=== PATIENT | male | born 1940 | race Caucasian/White ===

== ENCOUNTER 2017-04-23 22:51 | Emergency (ER) | payer MEDICARE, OTHER ==
[2017-04-23 23:02] VITALS: TEMP 97.4
[2017-04-23 23:36] LABS: Appearance,Urine Clear (Clear); Basophils # (A) 0.1 k/uL (0-0.2); Basophils % (A) 1 %; Bilirubin,Urine Negative (Negative); CH 30.5; CHCM 33.6; Eosinophils # (A) 0.4 k/uL (0-0.7); Eosinophils % (A) 4 %; Glucose,Urine (UA) 4+ (Negative); HCT 48.5 % (39.0-53.0); HDW 2.57; HGB 16.5 gm/dL (13.0-17.5); Ketones,Urine Negative (Negative); Leukocyte Esterase,Urine Negative (Negative); Luc # (Auto) 0.19; Luc % (Auto) 2; Lymphocytes # (A) 1.9 k/uL (1.0-4.8); Lymphocytes % (A) 17 %; MCH 31.1 pg (25.0-35.0); MCHC 34.1 g/dL (31.0-37.0); MCV 91.1 fL (80.0-100.0); Mean Platelet Volume 7.6; Monocytes # (A) 0.6 k/uL (0-1.0); Monocytes % (A) 5 %; Neutrophils # (A) 8.1 k/uL (1.3-7.7); Neutrophils % (A) 72 %; Nitrite,Urine Negative (Negative); PH, Urine 6.5 (5.0-8.0); Protein,Urine Negative (Negative); RBC 5.32 m/uL (4.30-5.90); RDW 13.2 % (11.5-15.5); Specific Gravity,Urine 1.014 (1.001-1.035); UA Billing (MACRO vs. MICRO) CHEM; Urobilinogen,Urine <2.0 mg/dL (<2.0); WBC 11.2 k/uL (3.8-10.6); WBC (Perox) 10.88
[2017-04-23 23:46] LABS: ALT 35 U/L (21-72); AST 34 U/L (17-59); Alcohol <10 mg/dL; Alkaline Phosphatase 85 U/L (38-126); Anion Gap 12 mmol/L; Blood Urea Nitrogen 25 mg/dL (9-20); Calcium 9.3 mg/dL (8.4-10.2); Carbon Dioxide 25 mmol/L (22-30); Chloride 100 mmol/L (98-107); Glucose 308 mg/dL (74-99); Non-African American GFR(MDRD) 59 (>60 ml/min/1.73 sqM); Potassium 4.6 mmol/L (3.5-5.1); Sodium 137 mmol/L (137-145); Total Bilirubin 0.5 mg/dL (0.2-1.3); Total Protein 6.2 g/dL (6.3-8.2)
[2017-04-23 23:50] LABS: Partial Thromboplastin Time 26.8 sec (22.0-30.0); Prothrombin Time 10.4 sec (9.0-12.0)
[2017-04-23 23:58] LABS: Creatine Kinase 433 U/L (55-170)
[2017-04-24 00:09] LABS: Troponin I <0.012 ng/mL (0.000-0.034)
[2017-04-24 00:10] LABS: Creatine Kinase MB 10.9 ng/mL (0.0-2.4)
--- NOTE | 2017-04-24 00:15 | CT ---
EXAM: CT Head Without Intravenous Contrast CLINICAL HISTORY: Reason: trauma TECHNIQUE: Axial computed tomography images of the head/brain without intravenous contrast. CTDI is 57.40 mGy and DLP is 1116.00 mGy-cm. This CT exam was performed using one or more of the following dose reduction techniques: automated exposure control, adjustment of the mA and/or kV according to patient size, and/or use of iterative reconstruction technique. COMPARISON: No relevant prior studies available. FINDINGS: Brain: Unremarkable. No hemorrhage. No significant white matter disease. No edema. Generalized atrophy noted. Ventricles: Unremarkable. No ventriculomegaly. Bones/joints: Unremarkable. No acute fracture. Soft tissues: Unremarkable. Sinuses: Unremarkable as visualized. No acute sinusitis. Mastoid air cells: Unremarkable as visualized. No mastoid effusion. IMPRESSION: No acute intracranial process. Generalized atrophy noted. EXAM: CT Cervical Spine Without Intravenous Contrast CLINICAL HISTORY: Reason: trauma TECHNIQUE: Axial computed tomography images of the cervical spine without intravenous contrast. CTDI is 29.10 mGy and DLP is 557.70 mGy-cm. This CT exam was performed using one or more of the following dose reduction techniques: automated exposure control, adjustment of the mA and/or kV according to patient size, and/or use of iterative reconstruction technique. COMPARISON: No relevant prior studies available. FINDINGS: Vertebrae: Unremarkable. No acute fracture. Discs/spinal canal/neural foramina: No acute findings. No spinal canal stenosis. Posterior disc protrusion at C5-6 causing bilateral neural foraminal narrowing. Right uncovertebral joint spurring seen at C4-5 causing right neural foraminal narrowing. Soft tissues: Unremarkable. Lung apices: Unremarkable as visualized. IMPRESSION: Normal cervical spine CT.
--- NOTE | 2017-04-24 00:52 | XR ---
EXAM: XR Chest, 1 View CLINICAL HISTORY: Reason: trauma TECHNIQUE: Frontal view of the chest. COMPARISON: 07/20/16 FINDINGS: Lungs: Unremarkable. No consolidation. Pleural space: Unremarkable. No pneumothorax. Heart: Stable mild cardiomegaly. Mediastinum: Unremarkable. Bones/joints: Unremarkable. IMPRESSION: No acute findings.
--- NOTE | 2017-04-24 00:55 | XR ---
EXAM: XR Pelvis, 1 or 2 Views CLINICAL HISTORY: Reason: Trauma TECHNIQUE: Frontal view of the pelvis. COMPARISON: No relevant prior studies available. FINDINGS: Bones/joints: Limited due to body habitus. Pelvic ring is grossly intact. No gross evidence of fracture. No dislocation. Soft tissues: Unremarkable. IMPRESSION: Limited due to body habitus. Pelvic ring is grossly intact. No gross evidence of fracture.
[2017-04-24] MEDS ORDERED: KETOROLAC 30 MG/ML 1 ML VIAL IVP STA (01:06)
[2017-04-24 02:10] LABS: Glucose,Whole Blood 350 mg/dL (75-99)
[2017-04-24] MEDS ORDERED: INSULIN GLARGINE 100 UNIT/ML 10 ML VIAL SQ ONE (02:15)
--- NOTE | 2017-04-24 02:20 | XR ---
EXAM: XR Left Shoulder Complete, 2 or More Views CLINICAL HISTORY: Reason: trauma TECHNIQUE: Two or more views of the left shoulder. COMPARISON: No relevant prior studies available. FINDINGS: Bones/joints: Mild acromioclavicular joint space loss. No acute fracture. No dislocation. Soft tissues: Unremarkable. IMPRESSION: No acute findings.
--- NOTE | 2017-04-24 02:41 | ED ---
General Adult HPI - General Chief complaint: Fall Stated complaint: Fall Time Seen by Provider: 04/23/17 22:54 Source: patient, family, EMS, RN notes reviewed Mode of arrival: EMS Limitations: no limitations - History of Present Illness Initial comments: 76-year-old male presents status post fall. Patient has Parkinson's disease and tripped type of stairs. He did fall down approximately 12 stairs. Complaining of left shoulder pain and left neck pain. There was minor head trauma but no loss of consciousness per patient is not on any blood thinners. He denies chest pain or shortness of breath. Denies abdominal pain. Patient was ambulatory on scene. He was brought him by EMS as a level II trauma activation. - Related Data Home Medications Medication Instructions Recorded Confirmed ALPRAZolam [Xanax] 0.25 mg PO BID PRN 01/10/14 07/21/16 Aspirin 81 mg PO DAILY 01/10/14 07/21/16 Folic Acid 1 mg PO DAILY 01/10/14 07/21/16 Furosemide [Lasix] 20 mg PO DAILY PRN 01/10/14 07/21/16 Insulin Glargine,Hum.rec.anlog 60 unit SQ BID 01/10/14 07/21/16 [Lantus Solostar] Levothyroxine Sodium [Synthroid] 100 mcg PO DAILY 01/10/14 07/21/16 Lisinopril [Zestril] 10 mg PO DAILY 01/10/14 07/21/16 Metoprolol Succinate [Toprol XL] 25 mg PO HS 01/10/14 07/21/16 Spironolactone [Aldactone] 12.5 mg PO DAILY 01/10/14 07/21/16 metFORMIN HCL 1,000 mg PO BID 01/10/14 07/21/16 Carbidopa-Levodopa 25-100 mg 1 tab PO BID-W/MEALS 07/20/16 07/21/16 [Sinemet 25-100 mg] Fexofenadine HCl [Dori Allergy] 180 mg PO DAILY PRN 07/20/16 07/21/16 Insulin Lispro [humaLOG Kwikpen] See Protocol SQ AC-TID 07/20/16 07/21/16 Venlafaxine HCl [Effexor XR] 150 mg PO DAILY 07/20/16 07/21/16 Vit C/E/Zn/Coppr/Lutein/Zeaxan 1 cap PO BID 07/20/16 07/21/16 [Preservision Areds 2 Softgel] Previous Rx's Medication Instructions Recorded Atorvastatin Calcium [Lipitor] 10 mg PO HS #30 tab 07/21/16 Cyanocobalamin [Vitamin B-12] 500 mcg PO DAILY #30 tablet 07/21/16 Docusate [Colace] 100 mg PO DAILY #30 capsule 07/21/16 HYDROcodone/APAP 5-325MG [Lyman 1 tab PO Q6HR PRN #12 tab 04/24/17 5-325] Ibuprofen [Motrin] 600 mg PO Q8HR PRN #24 tab 04/24/17 Allergies Allergy/AdvReac Type Severity Reaction Status Date / Time No Known Allergies Allergy Verified 07/20/16 19:07 Review of Systems ROS Statement: Those systems with pertinent positive or pertinent negative responses have been documented in the HPI. ROS Other: All systems not noted in ROS Statement are negative. Past Medical History Past Medical History: Diabetes Mellitus, GERD/Reflux, Hypertension, Neurologic Disorder, Osteoarthritis (OA), Sleep Apnea/CPAP/BIPAP, Thyroid Disorder Additional Past Medical History / Comment(s): PROLAPSED HEART VALVE, HEMOCHROMATOSIS, OCC. SWELLING IN FEET, FREQUENT CONSTIPATION, Parkinsons disease History of Any Multi-Drug Resistant Organisms: None Reported Past Surgical History: Orthopedic Surgery Additional Past Surgical History / Comment(s): RIGHT ROTATOR CUFF, LEFT SHOULDER ARTHROSCOPY Past Anesthesia/Blood Transfusion Reactions: No Reported Reaction Past Psychological History: Anxiety, Depression Smoking Status: Never smoker Past Alcohol Use History: Rare Past Drug Use History: None Reported - Past Family History Mother Family Medical History: Diabetes Mellitus Brother(s) Family Medical History: Blood Disorder Additional Family Medical History / Comment(s): hemachromatosis General Exam Limitations: no limitations General appearance: alert, in no apparent distress Head exam: Present: atraumatic, normocephalic Eye exam: Present: normal appearance, PERRL ENT exam: Present: normal exam, normal oropharynx, mucous membranes moist Neck exam: Present: normal inspection, tenderness, other (Left paraspinal and trapezius tenderness to palpation midline tenderness) Respiratory exam: Present: normal lung sounds bilaterally, respiratory distress Cardiovascular Exam: Present: regular rate, normal rhythm GI/Abdominal exam: Present: soft. Absent: distended, tenderness, guarding, rebound Extremities exam: Present: full ROM, tenderness (Tenderness over the left scapula, mild abrasion to the left shoulder, abrasion to the right knee, distal pulses intact), normal capillary refill, pedal edema Back exam: Present: normal inspection, full ROM. Absent: tenderness Neurological exam: Present: alert, oriented X3, CN II-XII intact. Absent: motor sensory deficit Psychiatric exam: Present: normal affect, normal mood Skin exam: Present: warm, dry Course Vital Signs 04/23/17 04/23/17 04/24/17 22:55 23:23 00:49 Temperature 97.4 F L Pulse Rate 69 70 78 Respiratory 17 17 16 Rate Blood Pressure 141/68 146/69 168/78 O2 Sat by Pulse 100 97 98 Oximetry - Reevaluation(s) Reevaluation #1: 04/24/17 02:53 Patient is reevaluated after x-rays are obtained. He is able to work. No additional exam findings noted. Patient is comfortable with discharge. EKG Findings - EKG Comments: EKG Findings:: EKG shows normal sinus rhythm, ventricular 81, NH interval 178, QRS duration 110, QTC 466, no ST segment elevation. Medical Decision Making - Medical Decision Making 76-year-old male presents status post fall. He does have Parkinson's disease and tripped top of the stairs. No chest pain palpitations or near-syncope prior fall. Patient did a minor head trauma no loss of consciousness. Only complaint is left shoulder pain and left paraspinal neck pain. No midline tenderness. Patient is maintained in a c-collar. Head CT is negative for intracranial hemorrhage, CT cervical spine is negative for fracture subluxation. Chest x-ray and pelvis x-ray are obtained and both are negative for any acute process. X-ray of the left shoulder shows no acute bony abnormality. Patient was evaluated as a level II trauma activation. Case was discussed with general surgery on-call. Laboratory studies obtained are unremarkable given the doesn't patient. On reevaluation patient's exam is unchanged. Continues to have left shoulder pain and left paraspinal pain in the cervical region. Her logic examination is nonfocal. Patient is able to move his neck without neurological symptoms. There is no midline tenderness. Patient is able to emergency department. Tetanus is up-to-date. Patient will be discharged home. He lives with his . His daughter will be available for assistance. Is given pain medication and follow-up with his primary care physician within the next several days. - Lab Data Result diagrams: 04/23/17 23:25 04/23/17 23:25 Lab Results 04/23/17 04/23/17 04/23/17 Range/Units 23:25 23:25 23:25 WBC (3.8-10.6) k/uL RBC (4.30-5.90) m/uL Hgb (13.0-17.5) gm/dL Hct (39.0-53.0) % MCV (80.0-100.0) fL MCH (25.0-35.0) pg MCHC (31.0-37.0) g/dL RDW (11.5-15.5) % Plt Count (150-450) k/uL Neutrophils % % Lymphocytes % % Monocytes % % Eosinophils % % Basophils % % Neutrophils # (1.3-7.7) k/uL Lymphocytes # (1.0-4.8) k/uL Monocytes # (0-1.0) k/uL Eosinophils # (0-0.7) k/uL Basophils # (0-0.2) k/uL PT (9.0-12.0) sec INR (<1.2) APTT (22.0-30.0) sec Sodium 137 (137-145) mmol/L Potassium 4.6 (3.5-5.1) mmol/L Chloride 100 (98-107) mmol/L Carbon Dioxide 25 (22-30) mmol/L Anion Gap 12 mmol/L BUN 25 H (9-20) mg/dL Creatinine 1.20 (0.66-1.25) mg/dL Est GFR (MDRD) Af Amer >60 (>60 ml/min/1.73 sqM) Est GFR (MDRD) Non-Af 59 (>60 ml/min/1.73 sqM) Glucose 308 H (74-99) mg/dL POC Glucose (mg/dL) (75-99) mg/dL POC Glu Surgical Services Assistant ID Calcium 9.3 (8.4-10.2) mg/dL Total Bilirubin 0.5 (0.2-1.3) mg/dL AST 34 (17-59) U/L ALT 35 (21-72) U/L Alkaline Phosphatase 85 (38-126) U/L Total Creatine Kinase 433 H (55-170) U/L CK-MB (CK-2) 10.9 H* (0.0-2.4) ng/mL CK-MB (CK-2) Rel Index 2.5 Troponin I <0.012 (0.000-0.034) ng/mL Total Protein 6.2 L (6.3-8.2) g/dL Albumin 3.7 (3.5-5.0) g/dL Urine Color Urine Appearance (Clear) Urine pH (5.0-8.0) Ur Specific [place] (1.001-1.035) Urine Protein (Negative) Urine Glucose (UA) (Negative) Urine Ketones (Negative) Urine Blood (Negative) Urine Nitrite (Negative) Urine Bilirubin (Negative) Urine Urobilinogen (<2.0) mg/dL Ur Leukocyte Esterase (Negative) Urine Opiates Screen (NotDetected) Ur Oxycodone Screen (NotDetected) Urine Methadone Screen (NotDetected) Ur Propoxyphene Screen (NotDetected) Ur Barbiturates Screen (NotDetected) U Tricyclic Antidepress (NotDetected) Ur Phencyclidine Scrn (NotDetected) Ur Amphetamines Screen (NotDetected) U Methamphetamines Scrn (NotDetected) U Benzodiazepines Scrn (NotDetected) Urine Cocaine Screen (NotDetected) U Marijuana (THC) Screen (NotDetected) Serum Alcohol <10 mg/dL Blood Type A Positive Blood Type Recheck CABO Indicated Antibody Screen NEGATIVE Spec Expiration Date 04/26/2017232404/23/17 04/23/17 04/23/17 Range/Units 23:25 23:25 23:25 WBC 11.2 H (3.8-10.6) k/uL RBC 5.32 (4.30-5.90) m/uL Hgb 16.5 (13.0-17.5) gm/dL Hct 48.5 (39.0-53.0) % MCV 91.1 (80.0-100.0) fL MCH 31.1 (25.0-35.0) pg MCHC 34.1 (31.0-37.0) g/dL RDW 13.2 (11.5-15.5) % Plt Count 202 (150-450) k/uL Neutrophils % 72 % Lymphocytes % 17 % Monocytes % 5 % Eosinophils % 4 % Basophils % 1 % Neutrophils # 8.1 H (1.3-7.7) k/uL Lymphocytes # 1.9 (1.0-4.8) k/uL Monocytes # 0.6 (0-1.0) k/uL Eosinophils # 0.4 (0-0.7) k/uL Basophils # 0.1 (0-0.2) k/uL PT 10.4 (9.0-12.0) sec INR 1.0 (<1.2) APTT 26.8 (22.0-30.0) sec Sodium (137-145) mmol/L Potassium (3.5-5.1) mmol/L Chloride (98-107) mmol/L Carbon Dioxide (22-30) mmol/L Anion Gap mmol/L BUN (9-20) mg/dL Creatinine (0.66-1.25) mg/dL Est GFR (MDRD) Af Amer (>60 ml/min/1.73 sqM) Est GFR (MDRD) Non-Af (>60 ml/min/1.73 sqM) Glucose (74-99) mg/dL POC Glucose (mg/dL) (75-99) mg/dL POC Glu Surgical Services Assistant ID Calcium (8.4-10.2) mg/dL Total Bilirubin (0.2-1.3) mg/dL AST (17-59) U/L ALT (21-72) U/L Alkaline Phosphatase (38-126) U/L Total Creatine Kinase (55-170) U/L CK-MB (CK-2) (0.0-2.4) ng/mL CK-MB (CK-2) Rel Index Troponin I (0.000-0.034) ng/mL Total Protein (6.3-8.2) g/dL Albumin (3.5-5.0) g/dL Urine Color Light Yellow Urine Appearance Clear (Clear) Urine pH 6.5 (5.0-8.0) Ur Specific [place] 1.014 (1.001-1.035) Urine Protein Negative (Negative) Urine Glucose (UA) 4+ H (Negative) Urine Ketones Negative (Negative) Urine Blood Negative (Negative) Urine Nitrite Negative (Negative) Urine Bilirubin Negative (Negative) Urine Urobilinogen <2.0 (<2.0) mg/dL Ur Leukocyte Esterase Negative (Negative) Urine Opiates Screen Not Detected (NotDetected) Ur Oxycodone Screen Not Detected (NotDetected) Urine Methadone Screen Not Detected (NotDetected) Ur Propoxyphene Screen Not Detected (NotDetected) Ur Barbiturates Screen Not Detected (NotDetected) U Tricyclic Antidepress Not Detected (NotDetected) Ur Phencyclidine Scrn Not Detected (NotDetected) Ur Amphetamines Screen Not Detected (NotDetected) U Methamphetamines Scrn Not Detected (NotDetected) U Benzodiazepines Scrn Not Detected (NotDetected) Urine Cocaine Screen Not Detected (NotDetected) U Marijuana (THC) Screen Not Detected (NotDetected) Serum Alcohol mg/dL Blood Type Blood Type Recheck Antibody Screen Spec Expiration Date 04/24/17 Range/Units 02:06 WBC (3.8-10.6) k/uL RBC (4.30-5.90) m/uL Hgb (13.0-17.5) gm/dL Hct (39.0-53.0) % MCV (80.0-100.0) fL MCH (25.0-35.0) pg MCHC (31.0-37.0) g/dL RDW (11.5-15.5) % Plt Count (150-450) k/uL Neutrophils % % Lymphocytes % % Monocytes % % Eosinophils % % Basophils % % Neutrophils # (1.3-7.7) k/uL Lymphocytes # (1.0-4.8) k/uL Monocytes # (0-1.0) k/uL Eosinophils # (0-0.7) k/uL Basophils # (0-0.2) k/uL PT (9.0-12.0) sec INR (<1.2) APTT (22.0-30.0) sec Sodium (137-145) mmol/L Potassium (3.5-5.1) mmol/L Chloride (98-107) mmol/L Carbon Dioxide (22-30) mmol/L Anion Gap mmol/L BUN (9-20) mg/dL Creatinine (0.66-1.25) mg/dL Est GFR (MDRD) Af Amer (>60 ml/min/1.73 sqM) Est GFR (MDRD) Non-Af (>60 ml/min/1.73 sqM) Glucose (74-99) mg/dL POC Glucose (mg/dL) 350 H (75-99) mg/dL POC Glu Surgical Services Assistant ID Denzel Lora Calcium (8.4-10.2) mg/dL Total Bilirubin (0.2-1.3) mg/dL AST (17-59) U/L ALT (21-72) U/L Alkaline Phosphatase (38-126) U/L Total Creatine Kinase (55-170) U/L CK-MB (CK-2) (0.0-2.4) ng/mL CK-MB (CK-2) Rel Index Troponin I (0.000-0.034) ng/mL Total Protein (6.3-8.2) g/dL Albumin (3.5-5.0) g/dL Urine Color Urine Appearance (Clear) Urine pH (5.0-8.0) Ur Specific [place] (1.001-1.035) Urine Protein (Negative) Urine Glucose (UA) (Negative) Urine Ketones (Negative) Urine Blood (Negative) Urine Nitrite (Negative) Urine Bilirubin (Negative) Urine Urobilinogen (<2.0) mg/dL Ur Leukocyte Esterase (Negative) Urine Opiates Screen (NotDetected) Ur Oxycodone Screen (NotDetected) Urine Methadone Screen (NotDetected) Ur Propoxyphene Screen (NotDetected) Ur Barbiturates Screen (NotDetected) U Tricyclic Antidepress (NotDetected) Ur Phencyclidine Scrn (NotDetected) Ur Amphetamines Screen (NotDetected) U Methamphetamines Scrn (NotDetected) U Benzodiazepines Scrn (NotDetected) Urine Cocaine Screen (NotDetected) U Marijuana (THC) Screen (NotDetected) Serum Alcohol mg/dL Blood Type Blood Type Recheck Antibody Screen Spec Expiration Date Disposition Clinical Impression: Shoulder contusion, Closed head injury, Neck sprain, Fall Disposition: HOME SELF-CARE Condition: Good Instructions: Fall Prevention for Older Adults (ED), Contusion in Adults (ED), Cervical Sprain (ED) Prescriptions: HYDROcodone/APAP 5-325MG [Lyman 5-325] 1 tab PO Q6HR PRN #12 tab PRN Reason: Pain Ibuprofen [Motrin] 600 mg PO Q8HR PRN #24 tab PRN Reason: Pain Referrals: Elizabeth Cruz MD [Primary Care Provider] - 1-2 days Time of Disposition: 02:40
[2017-04-24] MEDS ORDERED: HYDROcodone/APAP 5-325MG 1 EACH TAB PO STA (02:42)
[2017-04-24 03:04] VITALS: BP 122/63; PULSE 77; RESP 18
[2017-04-24] MEDS ORDERED: INSULIN GLARGINE 100 UNIT/ML 10 ML VIAL SQ SCH (21:00)
== END 2017-04-24 03:04 | disposition home or self-care (01) ==
LOC: EC 22:51
DX: S13.8XXA Sprain of joints and ligaments of other parts of neck, initial encounter (principal); S40.012A Contusion of left shoulder, initial encounter; S80.211A Abrasion, right knee, initial encounter; S09.90XA Unspecified injury of head, initial encounter; E11.9 Type 2 diabetes mellitus without complications; I10 Essential (primary) hypertension; E07.9 Disorder of thyroid, unspecified; G20 Parkinson's disease; F41.9 Anxiety disorder, unspecified; F32.9 Major depressive disorder, single episode, unspecified; Z79.4 Long term (current) use of insulin; Z79.82 Long term (current) use of aspirin; Z79.84 Long term (current) use of oral hypoglycemic drugs; Z79.899 Other long term (current) drug therapy; W10.9XXA Fall (on) (from) unspecified stairs and steps, initial encounter; Y92.009 Unspecified place in unspecified non-institutional (private) residence as the place of occurrence of the external cause
CPT/HCPCS: 99285; 96374; 36415 ×2; 93005; 86900; 86901; 80053; 82550; 82553; 84484; 85025; 85610; 85730; 86850; 81003; 80306; 80320; 71010; 72170; 73030; 72125; 70450; J1885

== ENCOUNTER 2018-03-08 21:03 | Inpatient (IN) | payer MEDICARE, OTHER ==
[2018-03-08] MEDS ORDERED: SODIUM CHLORIDE 0.9% 500 ML IV STA (21:12)
[2018-03-08] MEDS ORDERED: PANTOPRAZOLE 40 MG/10 ML VIAL IVP STA (21:12)
[2018-03-08 21:21] LABS: Glucose,Whole Blood 304 mg/dL (75-99)
[2018-03-08 21:37] LABS: Basophils # (A) 0.1 k/uL (0-0.2); Basophils % (A) 1 %; Eosinophils # (A) 0.3 k/uL (0-0.7); Eosinophils % (A) 2 %; HCT 40.6 % (39.0-53.0); HGB 13.4 gm/dL (13.0-17.5); Lymphocytes # (A) 1.9 k/uL (1.0-4.8); Lymphocytes % (A) 17 %; MCH 29.3 pg (25.0-35.0); MCHC 33.1 g/dL (31.0-37.0); MCV 88.5 fL (80.0-100.0); Mean Platelet Volume 7.5; Monocytes # (A) 0.7 k/uL (0-1.0); Monocytes % (A) 6 %; Neutrophils # (A) 8.3 k/uL (1.3-7.7); Neutrophils % (A) 73 %; Platelet Count 191 k/uL (150-450); RBC 4.58 m/uL (4.30-5.90); RDW 13.7 % (11.5-15.5); WBC 11.3 k/uL (3.8-10.6)
[2018-03-08 21:47] LABS: INR 1.2 (<1.2); Partial Thromboplastin Time 25.4 sec (22.0-30.0); Prothrombin Time 11.1 sec (9.0-12.0)
[2018-03-08 21:49] LABS: Albumin 3.2 g/dL (3.5-5.0); Calcium 8.6 mg/dL (8.4-10.2); Potassium 5.4 mmol/L (3.5-5.1); Total Bilirubin 0.4 mg/dL (0.2-1.3); Total Protein 5.4 g/dL (6.3-8.2)
[2018-03-08 22:07] LABS: Creatine Kinase 31 U/L (55-170)
[2018-03-08 22:21] LABS: Creatine Kinase MB 0.8 ng/mL (0.0-2.4); Troponin I <0.012 ng/mL (0.000-0.034)
[2018-03-08 22:36] LABS: Appearance,Urine Clear (Clear); Bilirubin,Urine Negative (Negative); Blood,Urine Negative (Negative); Color,Urine Yellow; Glucose,Urine (UA) 4+ (Negative); Ketones,Urine Negative (Negative); Leukocyte Esterase,Urine Negative (Negative); Nitrite,Urine Negative (Negative); Protein,Urine Negative (Negative); Specific Gravity,Urine 1.016 (1.001-1.035); Urobilinogen,Urine <2.0 mg/dL (<2.0)
--- NOTE | 2018-03-08 23:21 | ED ---
General Adult HPI - General Chief complaint: Weakness Stated complaint: GI Bleed Source: patient Mode of arrival: EMS Limitations: no limitations - History of Present Illness Initial comments: Dictation was produced using [employer] dictation software. please excuse any grammatical, word or spelling errors. Chief Complaint: 77-year-old male past medical history of diabetes, hypertension, sleep apnea, thyroid disease, peptic ulcer disease presents with melanotic stool 3 days. History of Present Illness: Donaldo has been having melanotic stool for the past 3 days. Patient has a past medical history peptic ulcer disease to the duodenum that required GI intervention. Patient denies any lightheadedness. Patient is brought in by EMS. Initial EMS vital signs showed hypertension with systolic in the 80s. Patient denies any abdominal pain. Patient states that he has been having some epigastric pain has been improved with ingestion of coffee creamer. Patient has a fever, chills or night sweats. Past Medical History: Otherwise, GERD, hypertension, neurologic disorder, sleep apnea Past Surgical History: Orthopedic surgery of the right rotator cuff Social History: [denies alcohol, tobacco or illicit drug use] Family History: reviewed and noncontributory The ROS documented in this emergency department record has been reviewed and confirmed by me. Those systems with pertinent positive or negative responses have been documented in the HPI. All other systems are other negative and/or noncontributory. - Related Data Home Medications Medication Instructions Recorded Confirmed ALPRAZolam [Xanax] 0.25 mg PO BID PRN 01/10/14 03/08/18 Aspirin 81 mg PO DAILY 01/10/14 03/08/18 Folic Acid 1 mg PO DAILY 01/10/14 03/08/18 Levothyroxine Sodium [Synthroid] 100 mcg PO DAILY 01/10/14 03/08/18 Lisinopril [Zestril] 10 mg PO DAILY 01/10/14 03/08/18 Metoprolol Succinate [Toprol XL] 25 mg PO DAILY 01/10/14 03/08/18 Carbidopa-Levodopa 25-100 mg 1 tab PO AC-TID 07/20/16 03/08/18 [Sinemet 25-100 mg] Fexofenadine HCl [Dori Allergy] 180 mg PO DAILY PRN 07/20/16 03/08/18 Insulin Lispro [humaLOG Kwikpen] 15 unit SQ AC-TID 07/20/16 03/08/18 Venlafaxine HCl [Effexor XR] 150 mg PO DAILY 07/20/16 03/08/18 Vit C/E/Zn/Coppr/Lutein/Zeaxan 1 cap PO BID 07/20/16 03/08/18 [Preservision Areds 2 Softgel] Artificial Tears-Hypromellose 1 - 2 drops BOTH EYES QID 03/08/18 03/08/18 [Artificial Tear Drops] Atorvastatin Calcium [Lipitor] 10 mg PO DAILY 03/08/18 03/08/18 Insulin Degludec [Tresiba 32 unit SQ HS 03/08/18 03/08/18 Flextouch U-100] Magnesium Oxide 400 mg PO DAILY 03/08/18 03/08/18 Previous Rx's Medication Instructions Recorded Cyanocobalamin [Vitamin B-12] 500 mcg PO DAILY #30 tablet 07/21/16 Diclofenac Sodium Gel [Voltaren 2 gm TOPICAL QID #1 tube 03/12/18 Gel] Fludrocortisone [Florinef] 0.05 mg PO DAILY #30 tablet 03/12/18 Lidocaine 5% Patch [Lidoderm 5% 1 patch TOPICAL DAILY #5 patch 03/12/18 Patch] Pantoprazole [Protonix] 40 mg PO AC-BID #60 tablet. 03/12/18 traMADol HCl [Ultram] 50 mg PO Q4H #18 tab 03/12/18 Allergies Allergy/AdvReac Type Severity Reaction Status Date / Time No Known Allergies Allergy Verified 03/08/18 21:23 Review of Systems ROS Statement: Those systems with pertinent positive or pertinent negative responses have been documented in the HPI. ROS Other: All systems not noted in ROS Statement are negative. Past Medical History Past Medical History: Diabetes Mellitus, GERD/Reflux, Hypertension, Neurologic Disorder, Osteoarthritis (OA), Sleep Apnea/CPAP/BIPAP, Thyroid Disorder Additional Past Medical History / Comment(s): PROLAPSED HEART VALVE, HEMOCHROMATOSIS, OCC. SWELLING IN FEET, FREQUENT CONSTIPATION, Parkinsons disease History of Any Multi-Drug Resistant Organisms: None Reported Past Surgical History: Orthopedic Surgery Additional Past Surgical History / Comment(s): RIGHT ROTATOR CUFF, LEFT SHOULDER ARTHROSCOPY Past Anesthesia/Blood Transfusion Reactions: No Reported Reaction Past Psychological History: Anxiety, Depression Smoking Status: Never smoker Past Alcohol Use History: Rare Past Drug Use History: None Reported - Past Family History Mother Family Medical History: Diabetes Mellitus Brother(s) Family Medical History: Blood Disorder Additional Family Medical History / Comment(s): hemachromatosis General Exam - General Exam Comments Initial Comments: Vitals: Vital signs upon arrival are within acceptable limits. PHYSICAL EXAM: General Impression: Alert and oriented x3, not in acute distress HEENT: Normocephalic atraumatic, extra-ocular movements intact, pupils equal and reactive to light bilaterally, mucous membranes moist. Cardiovascular: Heart regular rate and rhythm, S1&S2 audible, no murmurs, rubs or gallops Chest: Lungs clear to auscultation bilaterally, no rhonchi, no wheeze, no rales Abdomen: Bowel sounds present, abdomen soft, non-tender, non-distended, no organomegaly Musculoskeletal: Pulses present and equal in all extremities, no peripheral edema Motor: Power 5/5 bilaterally, no focal deficits noted Neurological: CN II-XII grossly intact, no focal motor or sensory deficits noted Skin: Intact with no visualized rashes Psych: Normal affect and mood Rectal exam: No external signs to identify source of bleeding. There is coffee- ground residue around the anus. No palpable masses with digital rectal exam. Limitations: no limitations Course Vital Signs 03/08/18 03/08/18 03/08/18 21:09 22:12 23:30 Temperature 97.8 F Pulse Rate 75 64 68 Respiratory 16 19 18 Rate Blood Pressure 130/61 115/57 115/57 O2 Sat by Pulse 100 100 97 Oximetry 03/09/18 00:00 Temperature Pulse Rate 66 Respiratory 19 Rate Blood Pressure 127/63 O2 Sat by Pulse 99 Oximetry Medical Decision Making - Medical Decision Making ED course: 77-year-old male with past medical history of peptic ulcer disease percents with coffee-ground stool. Is on arrival are within normal limits. There is history of hypotension that was seen by prehospital providers. Stool guaiac was positive for blood. Laboratory evaluation obtained. Mild leukocytosis of 11.3. Hemoglobin is 13.4. Most recent hemoglobin was approximately 1 year ago with the level of 16. INR is 1.2. Glucose is 307. Urinalysis is negative. There is suspicion of upper GI bleed causing melanotic stool. Patient given 40 mg of IV Protonix. Given comorbidities age and hemoglobin drop and prehospital hypotension will have the patient admitted for every 6 hours H&H, Protonix and GI consult. Patient is understandable and agreeable to plan. EKG Interpretation: A 12 lead EKG was obtained. It was interpreted by myself and attending physician. There is a P wave before every QRS complex. Rate is 68. Rhythm is and a sinus rhythm, NJ interval 154, Q tenriism 94, QTC 418. QT is not prolonged. No ST segment depression or elevation. Overall, this EKG is unremarkable - Lab Data Result diagrams: 03/12/18 08:09 03/12/18 08:09 Lab Results 03/08/18 03/08/18 03/08/18 Range/Units 21:06 21:28 21:28 WBC (3.8-10.6) k/uL RBC (4.30-5.90) m/uL Hgb (13.0-17.5) gm/dL Hct (39.0-53.0) % MCV (80.0-100.0) fL MCH (25.0-35.0) pg MCHC (31.0-37.0) g/dL RDW (11.5-15.5) % Plt Count (150-450) k/uL Neutrophils % % Lymphocytes % % Monocytes % % Eosinophils % % Basophils % % Neutrophils # (1.3-7.7) k/uL Lymphocytes # (1.0-4.8) k/uL Monocytes # (0-1.0) k/uL Eosinophils # (0-0.7) k/uL Basophils # (0-0.2) k/uL PT 11.1 (9.0-12.0) sec INR 1.2 H (<1.2) APTT 25.4 (22.0-30.0) sec Sodium (137-145) mmol/L Potassium (3.5-5.1) mmol/L Chloride (98-107) mmol/L Carbon Dioxide (22-30) mmol/L Anion Gap mmol/L BUN (9-20) mg/dL Creatinine (0.66-1.25) mg/dL Est GFR (CKD-EPI)AfAm (>60 ml/min/1.73 sqM) Est GFR (CKD-EPI)NonAf (>60 ml/min/1.73 sqM) Glucose (74-99) mg/dL POC Glucose (mg/dL) 304 H (75-99) mg/dL POC Glu Rubber Compounder Mixer ID Bibi Leija Estimated Ave Glu mg/dL Hemoglobin A1c (4.0-6.0) % Calcium (8.4-10.2) mg/dL Total Bilirubin (0.2-1.3) mg/dL AST (17-59) U/L ALT (21-72) U/L Alkaline Phosphatase (38-126) U/L Ammonia (<30) umol/L Total Creatine Kinase (55-170) U/L CK-MB (CK-2) (0.0-2.4) ng/mL CK-MB (CK-2) Rel Index Troponin I (0.000-0.034) ng/mL Total Protein (6.3-8.2) g/dL Albumin (3.5-5.0) g/dL Lipase (23-300) U/L Urine Color Urine Appearance (Clear) Urine pH (5.0-8.0) Ur Specific [place] (1.001-1.035) Urine Protein (Negative) Urine Glucose (UA) (Negative) Urine Ketones (Negative) Urine Blood (Negative) Urine Nitrite (Negative) Urine Bilirubin (Negative) Urine Urobilinogen (<2.0) mg/dL Ur Leukocyte Esterase (Negative) Blood Type A Positive Blood Type Recheck No Antibody Screen NEGATIVE Spec Expiration Date 03/11/2018 - 232703/08/18 03/08/18 03/08/18 Range/Units 21:28 21:28 21:28 WBC 11.3 H (3.8-10.6) k/uL RBC 4.58 (4.30-5.90) m/uL Hgb 13.4 (13.0-17.5) gm/dL Hct 40.6 (39.0-53.0) % MCV 88.5 (80.0-100.0) fL MCH 29.3 (25.0-35.0) pg MCHC 33.1 (31.0-37.0) g/dL RDW 13.7 (11.5-15.5) % Plt Count 191 (150-450) k/uL Neutrophils % 73 % Lymphocytes % 17 % Monocytes % 6 % Eosinophils % 2 % Basophils % 1 % Neutrophils # 8.3 H (1.3-7.7) k/uL Lymphocytes # 1.9 (1.0-4.8) k/uL Monocytes # 0.7 (0-1.0) k/uL Eosinophils # 0.3 (0-0.7) k/uL Basophils # 0.1 (0-0.2) k/uL PT (9.0-12.0) sec INR (<1.2) APTT (22.0-30.0) sec Sodium (137-145) mmol/L Potassium (3.5-5.1) mmol/L Chloride (98-107) mmol/L Carbon Dioxide (22-30) mmol/L Anion Gap mmol/L BUN (9-20) mg/dL Creatinine (0.66-1.25) mg/dL Est GFR (CKD-EPI)AfAm (>60 ml/min/1.73 sqM) Est GFR (CKD-EPI)NonAf (>60 ml/min/1.73 sqM) Glucose (74-99) mg/dL POC Glucose (mg/dL) (75-99) mg/dL POC Glu Rubber Compounder Mixer ID Estimated Ave Glu mg/dL Hemoglobin A1c (4.0-6.0) % Calcium (8.4-10.2) mg/dL Total Bilirubin (0.2-1.3) mg/dL AST (17-59) U/L ALT (21-72) U/L Alkaline Phosphatase (38-126) U/L Ammonia 15 (<30) umol/L Total Creatine Kinase 31 L (55-170) U/L CK-MB (CK-2) 0.8 (0.0-2.4) ng/mL CK-MB (CK-2) Rel Index 2.6 Troponin I <0.012 (0.000-0.034) ng/mL Total Protein (6.3-8.2) g/dL Albumin (3.5-5.0) g/dL Lipase (23-300) U/L Urine Color Urine Appearance (Clear) Urine pH (5.0-8.0) Ur Specific [place] (1.001-1.035) Urine Protein (Negative) Urine Glucose (UA) (Negative) Urine Ketones (Negative) Urine Blood (Negative) Urine Nitrite (Negative) Urine Bilirubin (Negative) Urine Urobilinogen (<2.0) mg/dL Ur Leukocyte Esterase (Negative) Blood Type Blood Type Recheck Antibody Screen Spec Expiration Date 03/08/18 03/08/18 03/09/18 Range/Units 21:28 22:11 02:44 WBC (3.8-10.6) k/uL RBC (4.30-5.90) m/uL Hgb (13.0-17.5) gm/dL Hct (39.0-53.0) % MCV (80.0-100.0) fL MCH (25.0-35.0) pg MCHC (31.0-37.0) g/dL RDW (11.5-15.5) % Plt Count (150-450) k/uL Neutrophils % % Lymphocytes % % Monocytes % % Eosinophils % % Basophils % % Neutrophils # (1.3-7.7) k/uL Lymphocytes # (1.0-4.8) k/uL Monocytes # (0-1.0) k/uL Eosinophils # (0-0.7) k/uL Basophils # (0-0.2) k/uL PT (9.0-12.0) sec INR (<1.2) APTT (22.0-30.0) sec Sodium 136 L (137-145) mmol/L Potassium 5.4 H (3.5-5.1) mmol/L Chloride 102 (98-107) mmol/L Carbon Dioxide 22 (22-30) mmol/L Anion Gap 12 mmol/L BUN 67 H (9-20) mg/dL Creatinine 1.10 (0.66-1.25) mg/dL Est GFR (CKD-EPI)AfAm 76 (>60 ml/min/1.73 sqM) Est GFR (CKD-EPI)NonAf 65 (>60 ml/min/1.73 sqM) Glucose 307 H (74-99) mg/dL POC Glucose (mg/dL) 285 H (75-99) mg/dL POC Glu Rubber Compounder Mixer ID Anastasiia Jones Estimated Ave Glu mg/dL Hemoglobin A1c (4.0-6.0) % Calcium 8.6 (8.4-10.2) mg/dL Total Bilirubin 0.4 (0.2-1.3) mg/dL AST 26 (17-59) U/L ALT 27 (21-72) U/L Alkaline Phosphatase 56 (38-126) U/L Ammonia (<30) umol/L Total Creatine Kinase (55-170) U/L CK-MB (CK-2) (0.0-2.4) ng/mL CK-MB (CK-2) Rel Index Troponin I (0.000-0.034) ng/mL Total Protein 5.4 L (6.3-8.2) g/dL Albumin 3.2 L (3.5-5.0) g/dL Lipase 113 (23-300) U/L Urine Color Yellow Urine Appearance Clear (Clear) Urine pH 6.0 (5.0-8.0) Ur Specific [place] 1.016 (1.001-1.035) Urine Protein Negative (Negative) Urine Glucose (UA) 4+ H (Negative) Urine Ketones Negative (Negative) Urine Blood Negative (Negative) Urine Nitrite Negative (Negative) Urine Bilirubin Negative (Negative) Urine Urobilinogen <2.0 (<2.0) mg/dL Ur Leukocyte Esterase Negative (Negative) Blood Type Blood Type Recheck Antibody Screen Spec Expiration Date 03/09/18 03/09/18 03/09/18 Range/Units 06:44 06:44 06:48 WBC 14.8 H (3.8-10.6) k/uL RBC 4.29 L (4.30-5.90) m/uL Hgb 12.9 L (13.0-17.5) gm/dL Hct 38.8 L (39.0-53.0) % MCV 90.4 (80.0-100.0) fL MCH 30.1 (25.0-35.0) pg MCHC 33.3 (31.0-37.0) g/dL RDW 13.8 (11.5-15.5) % Plt Count 220 (150-450) k/uL Neutrophils % % Lymphocytes % % Monocytes % % Eosinophils % % Basophils % % Neutrophils # (1.3-7.7) k/uL Lymphocytes # (1.0-4.8) k/uL Monocytes # (0-1.0) k/uL Eosinophils # (0-0.7) k/uL Basophils # (0-0.2) k/uL PT (9.0-12.0) sec INR (<1.2) APTT (22.0-30.0) sec Sodium (137-145) mmol/L Potassium (3.5-5.1) mmol/L Chloride (98-107) mmol/L Carbon Dioxide (22-30) mmol/L Anion Gap mmol/L BUN (9-20) mg/dL Creatinine (0.66-1.25) mg/dL Est GFR (CKD-EPI)AfAm (>60 ml/min/1.73 sqM) Est GFR (CKD-EPI)NonAf (>60 ml/min/1.73 sqM) Glucose (74-99) mg/dL POC Glucose (mg/dL) 232 H (75-99) mg/dL POC Glu Rubber Compounder Mixer ID Estimated Ave Glu mg/dL 151 Hemoglobin A1c 6.9 H (4.0-6.0) % Calcium (8.4-10.2) mg/dL Total Bilirubin (0.2-1.3) mg/dL AST (17-59) U/L ALT (21-72) U/L Alkaline Phosphatase (38-126) U/L Ammonia (<30) umol/L Total Creatine Kinase (55-170) U/L CK-MB (CK-2) (0.0-2.4) ng/mL CK-MB (CK-2) Rel Index Troponin I (0.000-0.034) ng/mL Total Protein (6.3-8.2) g/dL Albumin (3.5-5.0) g/dL Lipase (23-300) U/L Urine Color Urine Appearance (Clear) Urine pH (5.0-8.0) Ur Specific [place] (1.001-1.035) Urine Protein (Negative) Urine Glucose (UA) (Negative) Urine Ketones (Negative) Urine Blood (Negative) Urine Nitrite (Negative) Urine Bilirubin (Negative) Urine Urobilinogen (<2.0) mg/dL Ur Leukocyte Esterase (Negative) Blood Type Blood Type Recheck Antibody Screen Spec Expiration Date 03/09/18 03/09/18 Range/Units 11:44 16:57 WBC (3.8-10.6) k/uL RBC (4.30-5.90) m/uL Hgb (13.0-17.5) gm/dL Hct (39.0-53.0) % MCV (80.0-100.0) fL MCH (25.0-35.0) pg MCHC (31.0-37.0) g/dL RDW (11.5-15.5) % Plt Count (150-450) k/uL Neutrophils % % Lymphocytes % % Monocytes % % Eosinophils % % Basophils % % Neutrophils # (1.3-7.7) k/uL Lymphocytes # (1.0-4.8) k/uL Monocytes # (0-1.0) k/uL Eosinophils # (0-0.7) k/uL Basophils # (0-0.2) k/uL PT (9.0-12.0) sec INR (<1.2) APTT (22.0-30.0) sec Sodium (137-145) mmol/L Potassium (3.5-5.1) mmol/L Chloride (98-107) mmol/L Carbon Dioxide (22-30) mmol/L Anion Gap mmol/L BUN (9-20) mg/dL Creatinine (0.66-1.25) mg/dL Est GFR (CKD-EPI)AfAm (>60 ml/min/1.73 sqM) Est GFR (CKD-EPI)NonAf (>60 ml/min/1.73 sqM) Glucose (74-99) mg/dL POC Glucose (mg/dL) 228 H 192 H (75-99) mg/dL POC Glu Rubber Compounder Mixer ID Camille Bowling Estimated Ave Glu mg/dL Hemoglobin A1c (4.0-6.0) % Calcium (8.4-10.2) mg/dL Total Bilirubin (0.2-1.3) mg/dL AST (17-59) U/L ALT (21-72) U/L Alkaline Phosphatase (38-126) U/L Ammonia (<30) umol/L Total Creatine Kinase (55-170) U/L CK-MB (CK-2) (0.0-2.4) ng/mL CK-MB (CK-2) Rel Index Troponin I (0.000-0.034) ng/mL Total Protein (6.3-8.2) g/dL Albumin (3.5-5.0) g/dL Lipase (23-300) U/L Urine Color Urine Appearance (Clear) Urine pH (5.0-8.0) Ur Specific [place] (1.001-1.035) Urine Protein (Negative) Urine Glucose (UA) (Negative) Urine Ketones (Negative) Urine Blood (Negative) Urine Nitrite (Negative) Urine Bilirubin (Negative) Urine Urobilinogen (<2.0) mg/dL Ur Leukocyte Esterase (Negative) Blood Type Blood Type Recheck Antibody Screen Spec Expiration Date Disposition Clinical Impression: GI bleed Disposition: ADMITTED IP TO THIS [facility] Condition: Fair Decision Time: 23:22
[2018-03-08] MEDS ORDERED: NALOXONE 0.4 MG/ML 1 ML VIAL IV PRN (23:30)
[2018-03-09 02:46] LABS: Glucose,Whole Blood 285 mg/dL (75-99)
[2018-03-09] MEDS: SODIUM CHLORIDE 0.9% 1,000 ML IV SCH (06:45)
[2018-03-09 06:58] LABS: Glucose,Whole Blood 232 mg/dL (75-99)
[2018-03-09 06:59] LABS: HCT 38.8 % (39.0-53.0); HGB 12.9 gm/dL (13.0-17.5); MCH 30.1 pg (25.0-35.0); MCHC 33.3 g/dL (31.0-37.0); MCV 90.4 fL (80.0-100.0); Platelet Count 220 k/uL (150-450); RBC 4.29 m/uL (4.30-5.90); RDW 13.8 % (11.5-15.5); WBC 14.8 k/uL (3.8-10.6)
[2018-03-09] MEDS: PANTOPRAZOLE 40 MG/10 ML VIAL IV SCH ×2 (08:11→22:07)
[2018-03-09] MEDS ORDERED: ALPRAZolam 0.25 MG TAB PO PRN (11:26)
[2018-03-09 11:46] LABS: Glucose,Whole Blood 228 mg/dL (75-99)
[2018-03-09] MEDS: HYDROmorphone 0.5 MG/0.5 ML SYRINGE IVP PRN ×4 (12:25→21:39)
[2018-03-09] MEDS: INSULIN ASPART 100 UNIT/ML 1 ML 10 ML VIAL SQ SCH ×3 (12:26→21:38)
[2018-03-09] MEDS: ARTIFICIAL TEARS-HYPROMELLOSE DROPS 15 ML BTL BOTH EYES SCH ×3 (12:31→21:38)
[2018-03-09] MEDS: CARBIDOPA-LEVODOPA 25-100 MG 1 EACH TAB PO SCH ×2 (12:31→17:17)
[2018-03-09] MEDS: METOPROLOL SUCCINATE (ER) 25 MG TAB.ER.24H PO SCH (12:31)
[2018-03-09] MEDS: VENLAFAXINE HCL ER 150 MG CAP PO SCH (12:31)
[2018-03-09 17:06] LABS: Glucose,Whole Blood 192 mg/dL (75-99)
--- NOTE | 2018-03-09 18:41 | P.HPIM ---
History of Present Illness H&P Date: 03/09/18 Chief Complaint: GI bleed This is a 77-year-old male patient of Dr. Cruz with a past medical history of diabetes mellitus type 2, initially in requiring GERD, hypertension, CAITLYN, hypothyroidism, hemochromatosis-genetic recessive, Parkinsons. He was admitted from home to the emergency room secondary to episodes of melena and no ascitic stools, as well as burgundy stools for 3 days. He has known diverticular disease and diverticulosis with last colonoscopy by Dr. Le on November 2008. He presents with no abdominal pain, he was last seen by Dr. Schwartz March 05 which she will felt weak, metformin H Arches were discontinued at that time. Patient denies any NSAID use, except for coated aspirin, no other medication changes. She denies any lightheadedness no dizziness, Once in emergency room, hemoglobin was performed and an EKG showing normal sinus rhythm, no acute ST wave changes, QT is not prolonged, hemoglobin 13.4, platelet count 191 baseline hemoglobin was 11.2 from April 2017., no imaging studies were done, consult were done with Dr. Palacios gastroenterology, Review of Systems Constitutional: Reports as per HPI, Denies anorexia, Denies chills, Denies chronic headaches, Denies chronic pain, Denies daytime sleepiness, Denies fatigue, Denies fever, Denies lethargy, Denies malaise, Denies night sweats, Denies poor appetite, Denies sweats, Denies weakness, Denies weight gain, Denies weight loss Ears, nose, mouth and throat: Reports as per HPI, Denies ant. neck pain, Denies bleeding gums, Denies dental pain, Denies dysphagia, Denies epistaxis, Denies headache, Denies hoarseness, Denies mouth pain, Denies nasal congestion, Denies nasal discharge, Denies neck fullness/pressure, Denies neck lump, Denies nose pain, Denies odynophagia, Denies post-nasal drip, Denies sinus pain, Denies sinus pressure, Denies swelling in mouth, Denies swelling in throat, Denies sore throat, Denies vertigo, Denies voice changes Cardiovascular: Reports as per HPI Respiratory: Reports as per HPI Gastrointestinal: Reports as per HPI, Reports hematochezia, Reports melena, Denies abdominal pain, Denies belching, Denies bloating, Denies BRBPR, Denies change in bowel habits, Denies coffee ground emesis, Denies constipation, Denies diarrhea, Denies dyspepsia, Denies early satiety, Denies excessive gas, Denies heartburn, Denies hematemesis, Denies indigestion, Denies jaundice, Denies lactose intolerance, Denies loss of appetite, Denies nausea, Denies vomiting Genitourinary: Reports as per HPI, Denies decreased libido, Denies difficulties fathering child, Denies discharge, Denies dysuria, Denies erectile dysfunction, Denies flank pain, Denies genital pain, Denies genital sores, Denies hematuria, Denies impotence, Denies incontinence, Denies kidney stones, Denies nocturia, Denies polyuria, Denies testicular lump, Denies testicular pain, Denies urinary frequency, Denies urinary hesitancy, Denies urinary retention Musculoskeletal: Reports gait dysfunction Integumentary: Reports as per HPI Neurological: Reports as per HPI, Reports tremors Psychiatric: Reports as per HPI, Reports anxiety Endocrine: Reports as per HPI, Denies cold intolerance, Denies deepening of the voice, Denies excessive sweating, Denies excessive thirst, Denies fatigue, Denies flushing, Denies heat intolerance, Denies high blood sugars, Denies increase in ring/shoe/hat size, Denies low blood sugars, Denies nocturia, Denies palpitations, Denies polydipsia, Denies polyphagia, Denies polyuria, Denies proptosis, Denies recent glucocorticoid use, Denies thyroid mass, Denies weight change Past Medical History Past Medical History: Diabetes Mellitus, GERD/Reflux, Hypertension, Neurologic Disorder, Osteoarthritis (OA), Sleep Apnea/CPAP/BIPAP, Thyroid Disorder Additional Past Medical History / Comment(s): PROLAPSED HEART VALVE, HEMOCHROMATOSIS genetic recessive, OCC. SWELLING IN FEET, FREQUENT CONSTIPATION , Parkinsons disease History of Any Multi-Drug Resistant Organisms: None Reported Past Surgical History: Orthopedic Surgery Additional Past Surgical History / Comment(s): RIGHT ROTATOR CUFF, LEFT SHOULDER ARTHROSCOPY Past Anesthesia/Blood Transfusion Reactions: No Reported Reaction Past Psychological History: Anxiety, Depression Smoking Status: Never smoker Past Alcohol Use History: Rare Past Drug Use History: None Reported - Past Family History Mother Family Medical History: Diabetes Mellitus Brother(s) Family Medical History: Blood Disorder Additional Family Medical History / Comment(s): hemachromatosis Medications and Allergies Home Medications Medication Instructions Recorded Confirmed Type ALPRAZolam [Xanax] 0.25 mg PO BID PRN 01/10/14 03/08/18 History Aspirin 81 mg PO DAILY 01/10/14 03/08/18 History Folic Acid 1 mg PO DAILY 01/10/14 03/08/18 History Levothyroxine Sodium [Synthroid] 100 mcg PO DAILY 01/10/14 03/08/18 History Lisinopril [Zestril] 10 mg PO DAILY 01/10/14 03/08/18 History Metoprolol Succinate [Toprol XL] 25 mg PO DAILY 01/10/14 03/08/18 History metFORMIN HCL 1,000 mg PO BID 01/10/14 03/08/18 History Carbidopa-Levodopa 25-100 mg 1 tab PO AC-TID 07/20/16 03/08/18 History [Sinemet 25-100 mg] Fexofenadine HCl [Dori Allergy] 180 mg PO DAILY PRN 07/20/16 03/08/18 History Insulin Lispro [humaLOG Kwikpen] 15 unit SQ AC-TID 07/20/16 03/08/18 History Venlafaxine HCl [Effexor XR] 150 mg PO DAILY 07/20/16 03/08/18 History Vit C/E/Zn/Coppr/Lutein/Zeaxan 1 cap PO BID 07/20/16 03/08/18 History [Preservision Areds 2 Softgel] Cyanocobalamin [Vitamin B-12] 500 mcg PO DAILY #30 tablet 07/21/16 03/08/18 Rx Artificial Tears-Hypromellose 1 - 2 drops BOTH EYES QID 03/08/18 03/08/18 History [Artificial Tear Drops] Atorvastatin Calcium [Lipitor] 10 mg PO DAILY 03/08/18 03/08/18 History Empagliflozin [Jardiance] 25 mg PO DAILY 03/08/18 03/08/18 History Insulin Degludec [Tresiba 32 unit SQ HS 03/08/18 03/08/18 History Flextouch U-100] Magnesium Oxide 400 mg PO DAILY 03/08/18 03/08/18 History Allergies Allergy/AdvReac Type Severity Reaction Status Date / Time No Known Allergies Allergy Verified 03/08/18 21:23 Physical Exam Vitals: Vital Signs Temp Pulse Pulse Resp BP BP Pulse Ox 03/09/18 05:30 98.0 F 84 16 102/66 99 03/09/18 01:06 98.2 F 72 16 135/73 99 03/09/18 00:00 66 19 127/63 99 03/08/18 23:30 68 18 115/57 97 03/08/18 22:12 64 19 115/57 100 03/08/18 21:09 97.8 F 75 16 130/61 100 Intake and Output 03/08/18 03/09/18 03/09/18 22:59 06:59 14:59 Other: # Voids 2 2 # Bowel Movements 0 1 Weight 106.594 kg - Constitutional General appearance: cooperative, no acute distress - EENT Eyes: EOMI, PERRLA, dentition normal ENT: NA/AT, normal oropharynx - Respiratory Respiratory: bilateral: CTA, negative: diminished, dullness, rales - Cardiovascular Rhythm: regular Heart sounds: normal: S1, S2 Abnormal Heart Sounds: no systolic murmur, no diastolic murmur, no rub, no S3 Gallop, no S4 Gallop, no click, no other - Gastrointestinal General gastrointestinal: soft - Integumentary Integumentary: decreased turgor, normal - Neurologic Neurologic: CNII-XII intact, focal deficits - Musculoskeletal Musculoskeletal: strength equal bilaterally - Psychiatric Psychiatric: A&O x's 3, appropriate affect, intact judgment & insight Results CBC & Chem 7: 03/09/18 06:44 03/08/18 21:28 Labs: Abnormal Lab Results - Last 24 Hours (Table) 03/08/18 03/08/18 03/08/18 Range/Units 21:06 21:28 21:28 WBC (3.8-10.6) k/uL RBC (4.30-5.90) m/uL Hgb (13.0-17.5) gm/dL Hct (39.0-53.0) % Neutrophils # (1.3-7.7) k/uL INR 1.2 H (<1.2) Sodium (137-145) mmol/L Potassium (3.5-5.1) mmol/L BUN (9-20) mg/dL Glucose (74-99) mg/dL POC Glucose (mg/dL) 304 H (75-99) mg/dL Total Creatine Kinase 31 L (55-170) U/L Total Protein (6.3-8.2) g/dL Albumin (3.5-5.0) g/dL Urine Glucose (UA) (Negative) 03/08/18 03/08/18 03/08/18 Range/Units 21:28 21:28 22:11 WBC 11.3 H (3.8-10.6) k/uL RBC (4.30-5.90) m/uL Hgb (13.0-17.5) gm/dL Hct (39.0-53.0) % Neutrophils # 8.3 H (1.3-7.7) k/uL INR (<1.2) Sodium 136 L (137-145) mmol/L Potassium 5.4 H (3.5-5.1) mmol/L BUN 67 H (9-20) mg/dL Glucose 307 H (74-99) mg/dL POC Glucose (mg/dL) (75-99) mg/dL Total Creatine Kinase (55-170) U/L Total Protein 5.4 L (6.3-8.2) g/dL Albumin 3.2 L (3.5-5.0) g/dL Urine Glucose (UA) 4+ H (Negative) 03/09/18 03/09/18 03/09/18 Range/Units 02:44 06:44 06:48 WBC 14.8 H (3.8-10.6) k/uL RBC 4.29 L (4.30-5.90) m/uL Hgb 12.9 L (13.0-17.5) gm/dL Hct 38.8 L (39.0-53.0) % Neutrophils # (1.3-7.7) k/uL INR (<1.2) Sodium (137-145) mmol/L Potassium (3.5-5.1) mmol/L BUN (9-20) mg/dL Glucose (74-99) mg/dL POC Glucose (mg/dL) 285 H 232 H (75-99) mg/dL Total Creatine Kinase (55-170) U/L Total Protein (6.3-8.2) g/dL Albumin (3.5-5.0) g/dL Urine Glucose (UA) (Negative) Laboratory Results WBC 14.8 k/uL (3.8-10.6) H 03/09/18 06:44 RBC 4.29 m/uL (4.30-5.90) L 03/09/18 06:44 Hgb 12.9 gm/dL (13.0-17.5) L 03/09/18 06:44 Hct 38.8 % (39.0-53.0) L 03/09/18 06:44 MCV 90.4 fL (80.0-100.0) 03/09/18 06:44 MCH 30.1 pg (25.0-35.0) 03/09/18 06:44 MCHC 33.3 g/dL (31.0-37.0) 03/09/18 06:44 RDW 13.8 % (11.5-15.5) 03/09/18 06:44 Plt Count 220 k/uL (150-450) 03/09/18 06:44 Neutrophils % 73 % 03/08/18 21:28 Lymphocytes % 17 % 03/08/18 21:28 Monocytes % 6 % 03/08/18 21:28 Eosinophils % 2 % 03/08/18 21:28 Basophils % 1 % 03/08/18 21:28 Neutrophils # 8.3 k/uL (1.3-7.7) H 03/08/18 21:28 Lymphocytes # 1.9 k/uL (1.0-4.8) 03/08/18 21:28 Monocytes # 0.7 k/uL (0-1.0) 03/08/18 21:28 Eosinophils # 0.3 k/uL (0-0.7) 03/08/18 21:28 Basophils # 0.1 k/uL (0-0.2) 03/08/18 21:28 PT 11.1 sec (9.0-12.0) 03/08/18 21:28 INR 1.2 (<1.2) H 03/08/18 21:28 APTT 25.4 sec (22.0-30.0) 03/08/18 21:28 Sodium 136 mmol/L (137-145) L 03/08/18 21:28 Potassium 5.4 mmol/L (3.5-5.1) H 03/08/18 21:28 Chloride 102 mmol/L (98-107) 03/08/18 21:28 Carbon Dioxide 22 mmol/L (22-30) 03/08/18 21:28 Anion Gap 12 mmol/L 03/08/18 21:28 BUN 67 mg/dL (9-20) H 03/08/18 21:28 Creatinine 1.10 mg/dL (0.66-1.25) 03/08/18 21:28 Est GFR (CKD-EPI)AfAm 76 (>60 ml/min/1.73 sqM) 03/08/18 21:28 Est GFR (CKD-EPI)NonAf 65 (>60 ml/min/1.73 sqM) 03/08/18 21:28 Glucose 307 mg/dL (74-99) H 03/08/18 21:28 POC Glucose (mg/dL) 192 mg/dL (75-99) H 03/09/18 16:57 POC Glu Mig Welder ID Camille Bowling 03/09/18 16:57 Calcium 8.6 mg/dL (8.4-10.2) 03/08/18 21:28 Total Bilirubin 0.4 mg/dL (0.2-1.3) 03/08/18 21:28 AST 26 U/L (17-59) 03/08/18 21:28 ALT 27 U/L (21-72) 03/08/18 21:28 Alkaline Phosphatase 56 U/L (38-126) 03/08/18 21:28 Ammonia 15 umol/L (<30) 03/08/18 21:28 Total Creatine Kinase 31 U/L (55-170) L 03/08/18 21:28 CK-MB (CK-2) 0.8 ng/mL (0.0-2.4) 03/08/18 21: CK-MB (CK-2) Rel Index 2.6 03/08/18 21:28 Troponin I <0.012 ng/mL (0.000-0.034) 03/08/18 21:28 Total Protein 5.4 g/dL (6.3-8.2) L 03/08/18 21:28 Albumin 3.2 g/dL (3.5-5.0) L 03/08/18 21:28 Lipase 113 U/L (23-300) 03/08/18 21:28 Urine Color Yellow 03/08/18 22:11 Urine Appearance Clear (Clear) 03/08/18 22:11 Urine pH 6.0 (5.0-8.0) 03/08/18 22:11 Ur Specific [place] 1.016 (1.001-1.035) 03/08/18 22:11 Urine Protein Negative (Negative) 03/08/18 22:11 Urine Glucose (UA) 4+ (Negative) H 03/08/18 22:11 Urine Ketones Negative (Negative) 03/08/18 22:11 Urine Blood Negative (Negative) 03/08/18 22:11 Urine Nitrite Negative (Negative) 03/08/18 22:11 Urine Bilirubin Negative (Negative) 03/08/18 22:11 Urine Urobilinogen <2.0 mg/dL (<2.0) 03/08/18 22:11 Ur Leukocyte Esterase Negative (Negative) 03/08/18 22:11 Blood Type A Positive 03/08/18 21:28 Blood Type Recheck No 03/08/18 21:28 Antibody Screen NEGATIVE 03/08/18 21:28 Spec Expiration Date 03/11/2018232703/08/18 21:28 Thrombosis Risk Factor Assmnt - DVT/VTE Prophylaxis DVT/VTE Prophylaxis: Contraindicated - See note - Choose All That Apply Any of the Below Risk Factors Present?: Yes Each Factor Represents 1 point: Obesity (BMI >25) Other Risk Factors: Yes Each Risk Factor Represents 3 Points: Age 75 years or older Other congenital or acquired thrombophilia - If yes, enter type in comment: No Thrombosis Risk Factor Assessment Total Risk Factor Score: 4 Thrombosis Risk Factor Assessment Level: Moderate Risk Assessment and Plan Plan: 1. Acute upper GI bleedAcute upper GI bleed : Melanocytic stools along with burgundy stools, patient has underlying history of diverticulosis, he would be seen consultation by Dr. Le from gastroenterology, clear liquid diet, with anticipation that he would undergo either an EGD plus a colonoscopy,. He would need H&H every 6 hours, would transfuse under 7 hemoglobin. No abdominal pain currently, no IV antibiotics needed is on clinical examination. 2. Parkinson's with a walking stick for coming to ambulation, no recent falls 3. Acute blood loss anemia, hemoglobin is currently monitored, iron studies to be done, might need iron infusion prior to discharge 3. Diabetes mellitus type 2, insulin requiring, patient would be holding off his routine pre-meal basal bolus medication, and would cover with Accu-Cheks before meals and at bedtime coverage is on scale 4. Hypothyroidism on levothyroxine 100 g daily 8. Parkinson's on Sinemet 25/102 tabs 4 times a day 6. Hypertension on Lipitor on lisinopril 10 mg daily metoprolol 25 mg daily 7. Secondary pulmonary hypertension history, asymptomatic 8. Dysthymia on venlafaxine no changes made 9. BPH without lower tract symptomatology 10. DVT prophylaxis, contraindication for chemotherapy prophylaxis, we will use THEA maddiee GI prophylaxis, with suspected upper GI bleed, PPIs IV to be given
[2018-03-09 18:48] LABS: Hemoglobin A1C 6.9 % (4.0-6.0)
[2018-03-09 20:41] LABS: Glucose,Whole Blood 162 mg/dL (75-99)
[2018-03-09] MEDS: VIT A,C & E-LUTEIN-MINERALS 1 EACH TAB PO SCH (21:41)
[2018-03-10] MEDS: SODIUM CHLORIDE 0.9% 1,000 ML IV SCH ×2 (06:41→22:18)
[2018-03-10] MEDS: LEVOTHYROXINE 100 MCG TAB PO SCH (06:46)
[2018-03-10 07:15] LABS: Glucose,Whole Blood 180 mg/dL (75-99)
[2018-03-10] MEDS ORDERED: PROPOFOL 10 MG/ML 20 ML VIAL IV ONE (08:04)
[2018-03-10] MEDS ORDERED: LIDOCAINE 1% INJ 10MG/ML (20 ML MDV) ONE (08:04)
[2018-03-10] MEDS ORDERED: IV FLUID CONTINUATION 500 ML IV ONE (08:05)
--- NOTE | 2018-03-10 08:09 | P.CONS ---
History of Present Illness - Reason for Consult Consult date: 03/09/18 GI bleeding - History of Present Illness The patient is a 77-year-old male who presented with melanotic stools off 3 days duration. The patient has history of peptic ulcer disease. Other medical problems include history of diabetes mellitus, hypertension, obstructive sleep apnea and thyroid disease. The patient denied chest pains, slurring his speech or other sensory or motor changes. No history of dysphagia, odynophagia or hematemesis. No abdominal pains or change in bowel habits. There is history of chronic reflux disease. Patient reported having had some epigastric pains but no nausea or vomiting. Hemoglobin was 13.4 on admission dropped to 12.9 and remains stable. ] Review of Systems Constitutional: Denied fever, chills or unintentional weight loss Neurologic: No headaches, double vision or other sensory or motor changes Cardiopulmonary: No chest pains, shortness of breath or palpitations Gastrointestinal: See present illness above Genitourinary: No hematuria, dysuria or frequency Musculoskeletal:No joint swelling or pain Skin: No rashes Hematologic: No bleeding tendency Psychiatric: No anxiety or depression Past Medical History Past Medical History: Diabetes Mellitus, GERD/Reflux, Hypertension, Neurologic Disorder, Osteoarthritis (OA), Sleep Apnea/CPAP/BIPAP, Thyroid Disorder Additional Past Medical History / Comment(s): PROLAPSED HEART VALVE, HEMOCHROMATOSIS genetic recessive, OCC. SWELLING IN FEET, FREQUENT CONSTIPATION , Parkinsons disease History of Any Multi-Drug Resistant Organisms: None Reported Past Surgical History: Orthopedic Surgery Additional Past Surgical History / Comment(s): RIGHT ROTATOR CUFF, LEFT SHOULDER ARTHROSCOPY Past Anesthesia/Blood Transfusion Reactions: No Reported Reaction Past Psychological History: Anxiety, Depression Smoking Status: Never smoker Past Alcohol Use History: Rare Past Drug Use History: None Reported - Past Family History Mother Family Medical History: Diabetes Mellitus Brother(s) Family Medical History: Blood Disorder Additional Family Medical History / Comment(s): hemachromatosis Medications and Allergies Home Medications Medication Instructions Recorded Confirmed Type ALPRAZolam [Xanax] 0.25 mg PO BID PRN 01/10/14 03/08/18 History Aspirin 81 mg PO DAILY 01/10/14 03/08/18 History Folic Acid 1 mg PO DAILY 01/10/14 03/08/18 History Levothyroxine Sodium [Synthroid] 100 mcg PO DAILY 01/10/14 03/08/18 History Lisinopril [Zestril] 10 mg PO DAILY 01/10/14 03/08/18 History Metoprolol Succinate [Toprol XL] 25 mg PO DAILY 01/10/14 03/08/18 History metFORMIN HCL 1,000 mg PO BID 01/10/14 03/08/18 History Carbidopa-Levodopa 25-100 mg 1 tab PO AC-TID 07/20/16 03/08/18 History [Sinemet 25-100 mg] Fexofenadine HCl [Dori Allergy] 180 mg PO DAILY PRN 07/20/16 03/08/18 History Insulin Lispro [humaLOG Kwikpen] 15 unit SQ AC-TID 07/20/16 03/08/18 History Venlafaxine HCl [Effexor XR] 150 mg PO DAILY 07/20/16 03/08/18 History Vit C/E/Zn/Coppr/Lutein/Zeaxan 1 cap PO BID 07/20/16 03/08/18 History [Preservision Areds 2 Softgel] Cyanocobalamin [Vitamin B-12] 500 mcg PO DAILY #30 tablet 07/21/16 03/08/18 Rx Artificial Tears-Hypromellose 1 - 2 drops BOTH EYES QID 03/08/18 03/08/18 History [Artificial Tear Drops] Atorvastatin Calcium [Lipitor] 10 mg PO DAILY 03/08/18 03/08/18 History Empagliflozin [Jardiance] 25 mg PO DAILY 03/08/18 03/08/18 History Insulin Degludec [Tresiba 32 unit SQ HS 03/08/18 03/08/18 History Flextouch U-100] Magnesium Oxide 400 mg PO DAILY 03/08/18 03/08/18 History Allergies Allergy/AdvReac Type Severity Reaction Status Date / Time No Known Allergies Allergy Verified 03/08/18 21:23 Physical Exam Vitals: Vital Signs Temp Pulse Pulse Resp BP BP Pulse Ox 03/09/18 14:23 97.4 F L 70 18 117/67 98 03/09/18 05:30 98.0 F 84 16 102/66 99 03/09/18 01:06 98.2 F 72 16 135/73 99 03/09/18 00:00 66 19 127/63 99 03/08/18 23:30 68 18 115/57 97 03/08/18 22:12 64 19 115/57 100 03/08/18 21:09 97.8 F 75 16 130/61 100 Intake and Output 03/09/18 03/09/18 03/09/18 06:59 14:59 22:59 Other: # Voids 2 2 # Bowel Movements 0 1 General: Appears stated age, very pleasant in no acute distress Head and neck: Normocephalic and atraumatic, conjunctivae pink and sclerae not icteric, mucous membranes moist and pink. No masses in the neck or tracheal shifts Lungs: Clear to auscultation with no dullness to percussion Heart: Regular, no abnormal sounds, murmurs, gallops or friction Abdomen: Soft, no masses or organomegalies. No tenderness. Bowel sounds present Extremities: No clubbing, cyanosis or edema Neurologic: Alert and oriented 3. Cranial nerves grossly intact. No gross sensory or motor abnormalities Results CBC & Chem 7: 03/09/18 06:44 03/08/18 21:28 Labs: Abnormal Lab Results - Last 24 Hours (Table) 03/08/18 03/08/18 03/08/18 Range/Units 21:06 21:28 21:28 WBC (3.8-10.6) k/uL RBC (4.30-5.90) m/uL Hgb (13.0-17.5) gm/dL Hct (39.0-53.0) % Neutrophils # (1.3-7.7) k/uL INR 1.2 H (<1.2) Sodium (137-145) mmol/L Potassium (3.5-5.1) mmol/L BUN (9-20) mg/dL Glucose (74-99) mg/dL POC Glucose (mg/dL) 304 H (75-99) mg/dL Total Creatine Kinase 31 L (55-170) U/L Total Protein (6.3-8.2) g/dL Albumin (3.5-5.0) g/dL Urine Glucose (UA) (Negative) 03/08/18 03/08/18 03/08/18 Range/Units 21:28 21:28 22:11 WBC 11.3 H (3.8-10.6) k/uL RBC (4.30-5.90) m/uL Hgb (13.0-17.5) gm/dL Hct (39.0-53.0) % Neutrophils # 8.3 H (1.3-7.7) k/uL INR (<1.2) Sodium 136 L (137-145) mmol/L Potassium 5.4 H (3.5-5.1) mmol/L BUN 67 H (9-20) mg/dL Glucose 307 H (74-99) mg/dL POC Glucose (mg/dL) (75-99) mg/dL Total Creatine Kinase (55-170) U/L Total Protein 5.4 L (6.3-8.2) g/dL Albumin 3.2 L (3.5-5.0) g/dL Urine Glucose (UA) 4+ H (Negative) 03/09/18 03/09/18 03/09/18 Range/Units 02:44 06:44 06:48 WBC 14.8 H (3.8-10.6) k/uL RBC 4.29 L (4.30-5.90) m/uL Hgb 12.9 L (13.0-17.5) gm/dL Hct 38.8 L (39.0-53.0) % Neutrophils # (1.3-7.7) k/uL INR (<1.2) Sodium (137-145) mmol/L Potassium (3.5-5.1) mmol/L BUN (9-20) mg/dL Glucose (74-99) mg/dL POC Glucose (mg/dL) 285 H 232 H (75-99) mg/dL Total Creatine Kinase (55-170) U/L Total Protein (6.3-8.2) g/dL Albumin (3.5-5.0) g/dL Urine Glucose (UA) (Negative) 03/09/18 03/09/18 Range/Units 11:44 16:57 WBC (3.8-10.6) k/uL RBC (4.30-5.90) m/uL Hgb (13.0-17.5) gm/dL Hct (39.0-53.0) % Neutrophils # (1.3-7.7) k/uL INR (<1.2) Sodium (137-145) mmol/L Potassium (3.5-5.1) mmol/L BUN (9-20) mg/dL Glucose (74-99) mg/dL POC Glucose (mg/dL) 228 H 192 H (75-99) mg/dL Total Creatine Kinase (55-170) U/L Total Protein (6.3-8.2) g/dL Albumin (3.5-5.0) g/dL Urine Glucose (UA) (Negative) Assessment and Plan Assessment: 77-year-old male with history of melanotic stools and prior history of gastroesophageal reflux disease and peptic ulcer disease. Should rule out bleeding ulcer or complicated reflux disease. Plan: Agree with your current management. I will go ahead and schedule the patient for an EGD in a.m.
--- NOTE | 2018-03-10 08:26 | P.PCN ---
Date of Procedure: 03/10/18 Procedure(s) Performed: Procedure: Esophagogastroduodenoscopy and biopsy. Preoperative diagnosis: Melanotic stools and history of peptic ulcer disease and reflux. Postoperative diagnosis: 1. Small sliding hiatal hernia with no obvious esophagitis or complicated reflux disease. 2. Gastritis and duodenitis with duodenal bulb ulcer not actively bleeding at the time of this exam. 3. Biopsies obtained from the antrum to rule out H. pylori infection. Preparation and sedation: Was provided by anesthesia. Brief clinical history: The patient is a 77-year-old male who presented with melanotic stools of 3 days duration. The patient has history of peptic ulcer disease. Other medical problems include history of diabetes mellitus, hypertension, obstructive sleep apnea and thyroid disease. The patient denied chest pains, slurring his speech or other sensory or motor changes. No history of dysphagia, odynophagia or hematemesis. No abdominal pains or change in bowel habits. There is history of chronic reflux disease. Patient reported having had some epigastric pains but no nausea or vomiting. Hemoglobin was 13.4 on admission dropped to 12.9 and remains stable. This evaluation is to assess for a source of upper GI bleeding. Procedure: With the patient on his left lateral decubitus position and after informed consent and adequate sedation, I passed a Olympus-GIF 160 video upper endoscope through the cricopharyngeus down the esophagus. GE junction was around 42-43 cm from the incisors and there was a small sliding hiatal hernia but no obvious esophagitis or complicated reflux disease. The endoscope was then passed into the stomach which was insufflated with air and inspected in detail including the retroflex view in the cardia. There was diffuse mottling and erythema friability especially noted in the antrum with occasional erosions but no ulcers or active bleeding. Pyloric channel did not show any ulcers. Duodenal bulb was somewhat deformed that showed edema and erythema and there was a stellate-shaped ulcer measuring around 1.5 cm covered with white exudate with no blood protuberances, clots or oozing of blood. Post bulbar area and descending duodenum appeared normal and there was no evidence of obstruction. There was no evidence of bleeding noted at the time of this exam and all secretions were clear in color. I obtained biopsies from the antrum then the endoscope was withdrawn. The patient tolerated the procedure well. Plan: The patient was reassured and I discussed with his . Will allow clear liquid diet and continue PPI. If hemoglobin remains stable Will advance his diet. Further plans will be made accordingly.
[2018-03-10] MEDS: MAGNESIUM OXIDE 400 MG TAB PO SCH (08:40)
[2018-03-10] MEDS: FOLIC ACID 1 MG TAB PO SCH (08:40)
[2018-03-10] MEDS: CYANOCOBALAMIN 500 MCG TAB PO SCH (08:40)
[2018-03-10] MEDS: VENLAFAXINE HCL ER 150 MG CAP PO SCH (08:40)
[2018-03-10] MEDS: CARBIDOPA-LEVODOPA 25-100 MG 1 EACH TAB PO SCH ×3 (08:40→17:30)
[2018-03-10] MEDS: LISINOPRIL 10 MG TAB PO SCH (08:40)
[2018-03-10] MEDS: PANTOPRAZOLE 40 MG/10 ML VIAL IV SCH ×2 (08:40→22:06)
[2018-03-10] MEDS: INSULIN ASPART 100 UNIT/ML 1 ML 10 ML VIAL SQ SCH ×4 (08:40→22:07)
[2018-03-10] MEDS: VIT A,C & E-LUTEIN-MINERALS 1 EACH TAB PO SCH ×2 (08:40→22:07)
[2018-03-10] MEDS: ARTIFICIAL TEARS-HYPROMELLOSE DROPS 15 ML BTL BOTH EYES SCH ×4 (08:41→22:08)
[2018-03-10] MEDS: METOPROLOL SUCCINATE (ER) 25 MG TAB.ER.24H PO SCH (08:41)
[2018-03-10] MEDS: HYDROmorphone 0.5 MG/0.5 ML SYRINGE IVP PRN ×2 (09:34→12:18)
[2018-03-10 11:41] LABS: Glucose,Whole Blood 228 mg/dL (75-99)
[2018-03-10] MEDS: LIDOCAINE 5% PATCH TOPICAL SCH (13:51)
--- NOTE | 2018-03-10 16:01 | P.PN ---
Subjective Progress Note Date: 03/10/18 This is a 77-year-old male patient of Dr. Cruz with a past medical history of diabetes mellitus type 2, initially in requiring GERD, hypertension, CAITLYN, hypothyroidism, hemochromatosis-genetic recessive, Parkinsons. He was admitted from home to the emergency room secondary to episodes of melena and no ascitic stools, as well as burgundy stools for 3 days. He has known diverticular disease and diverticulosis with last colonoscopy by Dr. Le on November 2008. He presents with no abdominal pain, he was last seen by Dr. Schwartz March 05 which she will felt weak, metformin H Arches were discontinued at that time. Patient denies any NSAID use, except for coated aspirin, no other medication changes. She denies any lightheadedness no dizziness, Once in emergency room, hemoglobin was performed and an EKG showing normal sinus rhythm, no acute ST wave changes, QT is not prolonged, hemoglobin 13.4, platelet count 191 baseline hemoglobin was 11.2 from April 2017., no imaging studies were done, consult were done with Dr. Palacios gastroenterology 03/10 patient underwent endoscopy that suggested a stellate ulcer in the duodenal bulb not bleeding with erythema and signs of erosion in the gastrium. Continue pantoprazole 40 mg twice a day patient initiated on clear liquid diet. Continues to have some shoulder pain for which patient is taking Dyazide ordered 0.5 mg every 3. Lidocaine patch ordered to help with the pain. Patient encouraged to use oral medication. hours Objective - Vital Signs Vital signs: Vital Signs Temp 97.2 F L 03/10/18 15:00 Pulse 65 03/10/18 15:00 Resp 16 03/10/18 15:00 BP 104/61 03/10/18 15:00 Pulse Ox 100 03/10/18 15:00 Intake & Output 03/09/18 03/10/18 03/10/18 18:59 06:59 18:59 Intake Total 100 Balance 100 Intake: IV 100 Other: Voiding Method Toilet Urinal # Voids 2 3 4 # Bowel Movements 1 1 - Exam - Constitutional General appearance: cooperative, no acute distress - EENT Eyes: EOMI, PERRLA, dentition normal ENT: NA/AT, normal oropharynx - Respiratory Respiratory: bilateral: CTA, negative: diminished, dullness, rales - Cardiovascular Rhythm: regular Heart sounds: normal: S1, S2 Abnormal Heart Sounds: no systolic murmur, no diastolic murmur, no rub, no S3 Gallop, no S4 Gallop, no click, no other - Gastrointestinal General gastrointestinal: soft - Integumentary Integumentary: decreased turgor, normal - Neurologic Neurologic: CNII-XII intact, focal deficits - Musculoskeletal Musculoskeletal: strength equal bilaterally - Psychiatric Psychiatric: A&O x's 3, appropriate affect, intact judgment & insight - Labs CBC & Chem 7: 03/09/18 06:44 03/08/18 21:28 Labs: Abnormal Lab Results - Last 24 Hours (Table) 03/09/18 03/09/18 03/10/18 Range/Units 16:57 20:40 07:13 POC Glucose (mg/dL) 192 H 162 H 180 H (75-99) mg/dL 03/10/18 Range/Units 11:26 POC Glucose (mg/dL) 228 H (75-99) mg/dL Assessment and Plan Plan: 1. Acute upper GI bleed secondary to peptic ulcer disease from due to non-bulb ulcers clear liquid diet to be advanced as tolerated, EGD with stelate ulcer in the duodenal bulb was stopped continue pantoprazole 40 mg twice a day 2. Parkinson's with a walking stick for coming to ambulation, no recent falls 3. Acute blood loss anemia, hemoglobin is currently monitored, iron studies to be done, might need iron infusion prior to discharge 3. Diabetes mellitus type 2, insulin requiring, patient would be holding off his routine pre-meal basal bolus medication, and would cover with Accu-Cheks before meals and at bedtime coverage is on scale 4. Hypothyroidism on levothyroxine 100 g daily 8. Parkinson's on Sinemet 25/102 tabs 4 times a day 6. Hypertension on Lipitor on lisinopril 10 mg daily metoprolol 25 mg daily 7. Secondary pulmonary hypertension history, asymptomatic 8. Dysthymia on venlafaxine no changes made 9. BPH without lower tract symptomatology 10. DVT prophylaxis, contraindication for chemotherapy prophylaxis, we will use THEA hose Disposition likely discharge tomorrow
[2018-03-10 16:50] LABS: Glucose,Whole Blood 252 mg/dL (75-99)
[2018-03-10 20:46] LABS: Glucose,Whole Blood 180 mg/dL (75-99)
[2018-03-11] MEDS: HYDROmorphone 0.5 MG/0.5 ML SYRINGE IVP PRN ×3 (00:33→13:02)
[2018-03-11] MEDS: LEVOTHYROXINE 100 MCG TAB PO SCH (06:35)
[2018-03-11 07:01] LABS: Glucose,Whole Blood 166 mg/dL (75-99)
[2018-03-11] MEDS: INSULIN ASPART 100 UNIT/ML 1 ML 10 ML VIAL SQ SCH ×4 (08:01→22:28)
[2018-03-11] MEDS: LIDOCAINE 5% PATCH TOPICAL SCH (08:01)
[2018-03-11] MEDS: CYANOCOBALAMIN 500 MCG TAB PO SCH (08:02)
[2018-03-11] MEDS: PANTOPRAZOLE 40 MG/10 ML VIAL IV SCH ×2 (08:02→22:28)
[2018-03-11] MEDS: VIT A,C & E-LUTEIN-MINERALS 1 EACH TAB PO SCH ×2 (08:02→22:29)
[2018-03-11] MEDS: VENLAFAXINE HCL ER 150 MG CAP PO SCH (08:02)
[2018-03-11] MEDS: MAGNESIUM OXIDE 400 MG TAB PO SCH (08:02)
[2018-03-11] MEDS: METOPROLOL SUCCINATE (ER) 25 MG TAB.ER.24H PO SCH (08:02)
[2018-03-11] MEDS: CARBIDOPA-LEVODOPA 25-100 MG 1 EACH TAB PO SCH ×3 (08:02→17:09)
[2018-03-11] MEDS: LISINOPRIL 10 MG TAB PO SCH (08:02)
[2018-03-11] MEDS: ARTIFICIAL TEARS-HYPROMELLOSE DROPS 15 ML BTL BOTH EYES SCH ×4 (08:58→22:29)
[2018-03-11 12:08] LABS: Glucose,Whole Blood 248 mg/dL (75-99)
[2018-03-11] MEDS: FOLIC ACID 1 MG TAB PO SCH (12:55)
[2018-03-11 14:02] LABS: Basophils # (A) 0.1 k/uL (0-0.2); Basophils % (A) 1 %; Eosinophils # (A) 0.2 k/uL (0-0.7); Eosinophils % (A) 3 %; HCT 35.1 % (39.0-53.0); HGB 11.7 gm/dL (13.0-17.5); Lymphocytes # (A) 2.3 k/uL (1.0-4.8); Lymphocytes % (A) 27 %; MCH 30.4 pg (25.0-35.0); MCHC 33.4 g/dL (31.0-37.0); MCV 91.1 fL (80.0-100.0); Mean Platelet Volume 7.1; Monocytes # (A) 0.4 k/uL (0-1.0); Monocytes % (A) 5 %; Neutrophils # (A) 5.3 k/uL (1.3-7.7); Neutrophils % (A) 63 %; Platelet Count 215 k/uL (150-450); RBC 3.85 m/uL (4.30-5.90); RDW 14.3 % (11.5-15.5); WBC 8.5 k/uL (3.8-10.6)
[2018-03-11 14:08] LABS: ALT 20 U/L (21-72); AST 23 U/L (17-59); Albumin 3.5 g/dL (3.5-5.0); Alkaline Phosphatase 60 U/L (38-126); Anion Gap 9 mmol/L; Blood Urea Nitrogen 25 mg/dL (9-20); Calcium 8.8 mg/dL (8.4-10.2); Carbon Dioxide 27 mmol/L (22-30); Chloride 102 mmol/L (98-107); Glucose 271 mg/dL (74-99); Potassium 4.3 mmol/L (3.5-5.1); Sodium 138 mmol/L (137-145); Total Bilirubin 0.6 mg/dL (0.2-1.3); Total Protein 5.8 g/dL (6.3-8.2)
--- NOTE | 2018-03-11 16:13 | P.PN ---
Subjective Progress Note Date: 03/11/18 This is a 77-year-old male patient of Dr. Cruz with a past medical history of diabetes mellitus type 2, initially in requiring GERD, hypertension, CAITLYN, hypothyroidism, hemochromatosis-genetic recessive, Parkinsons. He was admitted from home to the emergency room secondary to episodes of melena and no ascitic stools, as well as burgundy stools for 3 days. He has known diverticular disease and diverticulosis with last colonoscopy by Dr. Le on November 2008. He presents with no abdominal pain, he was last seen by Dr. Schwartz March 05 which she will felt weak, metformin H Arches were discontinued at that time. Patient denies any NSAID use, except for coated aspirin, no other medication changes. She denies any lightheadedness no dizziness, Once in emergency room, hemoglobin was performed and an EKG showing normal sinus rhythm, no acute ST wave changes, QT is not prolonged, hemoglobin 13.4, platelet count 191 baseline hemoglobin was 11.2 from April 2017., no imaging studies were done, consult were done with Dr. Palacios gastroenterology 03/10 patient underwent endoscopy that suggested a stellate ulcer in the duodenal bulb not bleeding with erythema and signs of erosion in the gastrium. Continue pantoprazole 40 mg twice a day patient initiated on clear liquid diet. Continues to have some shoulder pain for which patient is taking Dyazide ordered 0.5 mg every 3. Lidocaine patch ordered to help with the pain. Patient encouraged to use oral medication. 03/11 patient feels dizzy on standing. at bedside concern about patient's dizziness. Continues to have shoulder pain for which patient takes Dilaudid every 3 hours. Patient encouraged to use oral medication. Dilaudid discontinued. Shoulder x-ray ordered. Tramadol initiated. Patient asked to follow with Dr. Cruz for pain management. Lidocaine patch with slight improvement. diclofenac gel ordered. Objective - Vital Signs Vital signs: Vital Signs Temp 97.6 F 03/11/18 06:10 Pulse 72 03/11/18 06:10 Resp 14 03/11/18 06:10 BP 146/71 03/11/18 06:10 Pulse Ox 99 03/11/18 06:10 Intake & Output 03/10/18 03/11/18 03/11/18 18:59 06:59 18:59 Intake Total 100 500 Output Total 500 Balance 100 -500 500 Intake: IV 100 Oral 500 Output: Urine 500 Other: Voiding Method Toilet # Voids 4 1 2 # Bowel Movements 1 - Exam - Constitutional General appearance: cooperative, no acute distress - EENT Eyes: EOMI, PERRLA, dentition normal ENT: NA/AT, normal oropharynx - Respiratory Respiratory: bilateral: CTA, negative: diminished, dullness, rales - Cardiovascular Rhythm: regular Heart sounds: normal: S1, S2 Abnormal Heart Sounds: no systolic murmur, no diastolic murmur, no rub, no S3 Gallop, no S4 Gallop, no click, no other - Gastrointestinal General gastrointestinal: soft - Integumentary Integumentary: decreased turgor, normal - Neurologic Neurologic: CNII-XII intact, focal deficits - Musculoskeletal Musculoskeletal: strength equal bilaterally. shoulder strength on the left reduced with decreased ROM - Psychiatric Psychiatric: A&O x's 3, appropriate affect, intact judgment & insight - Labs CBC & Chem 7: 03/11/18 13:43 03/11/18 13:43 Labs: Abnormal Lab Results - Last 24 Hours (Table) 03/10/18 03/10/18 03/11/18 Range/Units 16:49 20:45 06:58 RBC (4.30-5.90) m/uL Hgb (13.0-17.5) gm/dL Hct (39.0-53.0) % BUN (9-20) mg/dL Glucose (74-99) mg/dL POC Glucose (mg/dL) 252 H 180 H 166 H (75-99) mg/dL ALT (21-72) U/L Total Protein (6.3-8.2) g/dL 03/11/18 03/11/18 03/11/18 Range/Units 12:05 13:43 13:43 RBC 3.85 L (4.30-5.90) m/uL Hgb 11.7 L (13.0-17.5) gm/dL Hct 35.1 L (39.0-53.0) % BUN 25 H (9-20) mg/dL Glucose 271 H (74-99) mg/dL POC Glucose (mg/dL) 248 H (75-99) mg/dL ALT 20 L (21-72) U/L Total Protein 5.8 L (6.3-8.2) g/dL Assessment and Plan Plan: 1. Acute upper GI bleed secondary to peptic ulcer disease from due to non-bulb ulcers clear liquid diet to be advanced as tolerated, EGD with stelate ulcer in the duodenal bulb was stopped continue pantoprazole 40 mg twice a day 2. Parkinson's with a walking stick for coming to ambulation, no recent falls 3. Acute blood loss anemia, hemoglobin is currently monitored, iron studies to be done, might need iron infusion prior to discharge 3. Diabetes mellitus type 2, insulin requiring, patient would be holding off his routine pre-meal basal bolus medication, and would cover with Accu-Cheks before meals and at bedtime coverage is on scale 4. Hypothyroidism on levothyroxine 100 g daily 8. Parkinson's on Sinemet 25/102 tabs 4 times a day 6. Hypertension on Lipitor on lisinopril 10 mg daily metoprolol 25 mg daily 7. Secondary pulmonary hypertension history, asymptomatic 8. Dysthymia on venlafaxine no changes made 9. BPH without lower tract symptomatology 10. DVT prophylaxis, contraindication for chemotherapy prophylaxis, we will use THEA joaquin #11 dizziness unclear etiology.orthostatic ordered. Likely autonomic hypotension secondary to Parkinson's. Continue normal saline at 100 mL per hour Disposition pending PT evaluation
[2018-03-11] MEDS: traMADol 50 MG TAB PO SCH ×3 (17:09→22:30)
[2018-03-11] MEDS: DICLOFENAC SODIUM GEL 100 GM TUBE TOPICAL SCH ×3 (17:10→22:30)
[2018-03-11] MEDS: SODIUM CHLORIDE 0.9% 1,000 ML IV SCH ×2 (17:10→22:43)
[2018-03-11 17:27] LABS: Glucose,Whole Blood 201 mg/dL (75-99)
--- NOTE | 2018-03-11 17:39 | XR ---
EXAMINATION TYPE: XR shoulder complete LT DATE OF EXAM: 03/11/2018 COMPARISON: 04/23/2017 HISTORY: 77-year-old male with left shoulder pain TECHNIQUE: 3 views FINDINGS: Severe degenerative joint space narrowing and marginal spurring at AC joint. Subacromial space is pre served. Bony irregularity at the greater tuberosity. Mild degenerative spurring at the glenohumeral j oint. No acute fracture, subluxation, or dislocation. Suspect some loose bodies along the bicipital g roove. IMPRESSION: 1. No acute osseous abnormality seen. 2. Severe AC joint OA. 3. Changes of chronic rotator cuff tendinopathy. 4. Mild GH joint OA.
[2018-03-11 21:11] LABS: Glucose,Whole Blood 197 mg/dL (75-99)
[2018-03-12 01:53] VITALS: PULSE 67
[2018-03-12] MEDS: SODIUM CHLORIDE 0.9% 1,000 ML IV SCH ×2 (02:24→13:17)
[2018-03-12] MEDS: traMADol 50 MG TAB PO SCH ×3 (02:31→10:53)
[2018-03-12 06:20] VITALS: BP 147/74; RESP 16; TEMP 97.7
[2018-03-12] MEDS: LEVOTHYROXINE 100 MCG TAB PO SCH (06:25)
[2018-03-12 07:15] LABS: Glucose,Whole Blood 184 mg/dL (75-99)
[2018-03-12] MEDS: INSULIN ASPART 100 UNIT/ML 1 ML 10 ML VIAL SQ SCH ×2 (07:52→11:57)
[2018-03-12] MEDS: PANTOPRAZOLE 40 MG/10 ML VIAL IV SCH (07:53)
[2018-03-12] MEDS: LIDOCAINE 5% PATCH TOPICAL SCH (07:53)
[2018-03-12] MEDS: CARBIDOPA-LEVODOPA 25-100 MG 1 EACH TAB PO SCH ×2 (07:54→11:58)
[2018-03-12] MEDS: MAGNESIUM OXIDE 400 MG TAB PO SCH (07:54)
[2018-03-12] MEDS: VIT A,C & E-LUTEIN-MINERALS 1 EACH TAB PO SCH (07:54)
[2018-03-12] MEDS: VENLAFAXINE HCL ER 150 MG CAP PO SCH (07:54)
[2018-03-12] MEDS: LISINOPRIL 10 MG TAB PO SCH (07:54)
[2018-03-12] MEDS: CYANOCOBALAMIN 500 MCG TAB PO SCH (07:54)
[2018-03-12] MEDS: ARTIFICIAL TEARS-HYPROMELLOSE DROPS 15 ML BTL BOTH EYES SCH ×2 (07:55→11:59)
[2018-03-12] MEDS: DICLOFENAC SODIUM GEL 100 GM TUBE TOPICAL SCH ×2 (07:56→12:00)
[2018-03-12] MEDS: METOPROLOL SUCCINATE (ER) 25 MG TAB.ER.24H PO SCH (08:32)
[2018-03-12 09:02] LABS: Basophils # (A) 0.1 k/uL (0-0.2); Basophils % (A) 1 %; Eosinophils # (A) 0.2 k/uL (0-0.7); Eosinophils % (A) 2 %; HCT 34.5 % (39.0-53.0); HGB 11.4 gm/dL (13.0-17.5); Lymphocytes # (A) 1.7 k/uL (1.0-4.8); Lymphocytes % (A) 19 %; MCH 29.4 pg (25.0-35.0); MCHC 33.2 g/dL (31.0-37.0); MCV 88.6 fL (80.0-100.0); Mean Platelet Volume 7.8; Monocytes # (A) 0.6 k/uL (0-1.0); Monocytes % (A) 6 %; Neutrophils % (A) 70 %; Platelet Count 213 k/uL (150-450); WBC 8.6 k/uL (3.8-10.6)
[2018-03-12 09:11] LABS: ALT 34 U/L (21-72); AST 25 U/L (17-59); Albumin 3.6 g/dL (3.5-5.0); Alkaline Phosphatase 67 U/L (38-126); Anion Gap 10 mmol/L; Blood Urea Nitrogen 19 mg/dL (9-20); Calcium 8.5 mg/dL (8.4-10.2); Carbon Dioxide 26 mmol/L (22-30); Chloride 104 mmol/L (98-107); Glucose 204 mg/dL (74-99); Potassium 4.3 mmol/L (3.5-5.1); Sodium 140 mmol/L (137-145); Total Bilirubin 0.6 mg/dL (0.2-1.3); Total Protein 5.9 g/dL (6.3-8.2)
[2018-03-12 11:49] LABS: Glucose,Whole Blood 251 mg/dL (75-99)
[2018-03-12] MEDS: FOLIC ACID 1 MG TAB PO SCH (11:58)
[2018-03-12 17:03] LABS: Iron Saturation 15.72 (15.00-50.00)
--- NOTE | 2018-03-15 08:49 | CDI ---
Last Revision, August 2017 Documentation Clarification Form Date: 03/15/2018 8:47:39 AM From: Tova Purvis Phone: If you have a question regarding this query, please contact Jenna Delgadillo at [phone] between 8am and 5pm. Admit Date: 03/09/2018 5:29:00 PM Patient Name: Rigoberto Diaz Visit Number: [id number] Discharge Date: ATTENTION: The Clinical Documentation Specialists (CDI) and [facility] Coding Staff appreciate your assistance in clarifying documentation. Please respond to the clarification below the line at the bottom and electronically sign. The CDI & [facility] Coding staff will review the response and follow-up if needed. Please note: Queries are made part of the Legal Health Record. If you have any questions, please contact the author of this message via ITS. Dr. Rohan Evans Gastritis is documented in the procedure note. Please specify the acuity of this condition with terms such as: Acute Chronic Acute and chronic Acute on chronic Other (please specify in the medical record) Clinically unable to further specify Unknown MTDD
--- NOTE | 2018-03-15 08:52 | CDI ---
Last Revision, August 2017 Documentation Clarification Form Date: 03/15/2018 8:47:39 AM From: Tova Purvis Phone: If you have a question regarding this query, please contact Jenna Delgadillo at [phone] between 8am and 5pm. Admit Date: 03/09/2018 5:29:00 PM Patient Name: Rigoberto Diaz Visit Number: [id number] Discharge Date: ATTENTION: The Clinical Documentation Specialists (CDI) and [facility] Coding Staff appreciate your assistance in clarifying documentation. Please respond to the clarification below the line at the bottom and electronically sign. The CDI & [facility] Coding staff will review the response and follow-up if needed. Please note: Queries are made part of the Legal Health Record. If you have any questions, please contact the author of this message via ITS. Dr. Rohan Evans Duodenitis is documented in the procedure note. Please specify the acuity of this condition with terms such as: Acute Chronic Acute and chronic Acute on chronic Other (please specify in the medical record) Clinically unable to further specify Unknown MTDD
--- NOTE | 2018-03-15 08:59 | CDI ---
Last Revision, August 2017 Documentation Clarification Form Date: 03/15/2018 8:47:39 AM From: Tova Purvis Phone: If you have a question regarding this query, please contact Jenna Delgadillo at [phone] between 8am and 5pm. Admit Date: 03/09/2018 5:29:00 PM Patient Name: Rigoberto Diaz Visit Number: [id number] Discharge Date: ATTENTION: The Clinical Documentation Specialists (CDI) and [facility] Coding Staff appreciate your assistance in clarifying documentation. Please respond to the clarification below the line at the bottom and electronically sign. The CDI & [facility] Coding staff will review the response and follow-up if needed. Please note: Queries are made part of the Legal Health Record. If you have any questions, please contact the author of this message via ITS. Dr. Rohan Evans Acute upper GI bleed secondary to peptic ulcer disease is documented in your progress notes. Please specify the acuity of this condition with terms such as: Acute Chronic Acute and chronic Acute on chronic Other (please specify in the medical record) Clinically unable to further specify Unknown MTDD
--- NOTE | 2018-03-20 14:10 | P.DS ---
Providers Date of admission: 03/09/18 17:29 Expected date of discharge: 03/12/18 Attending physician: Kezia Harley Consults: 03/08/18 23:31 Consult Physician Urgent Consulting Provider: Liberty Prakash Consult Reason/Comments: melanotic stool Do you want consulting provider notified?: Yes Primary care physician: Elizabeth Cruz [facility] Course: This is a 77-year-old male patient of Dr. Cruz with a past medical history of diabetes mellitus type 2, initially in requiring GERD, hypertension, CAITLYN, hypothyroidism, hemochromatosis-genetic recessive, Parkinsons. He was admitted from home to the emergency room secondary to episodes of melena and no ascitic stools, as well as burgundy stools for 3 days. He has known diverticular disease and diverticulosis with last colonoscopy by Dr. Le on November 2008. He presents with no abdominal pain, he was last seen by Dr. Schwartz March 05 which she will felt weak, metformin H Arches were discontinued at that time. Patient denies any NSAID use, except for coated aspirin, no other medication changes. She denies any lightheadedness no dizziness, Once in emergency room, hemoglobin was performed and an EKG showing normal sinus rhythm, no acute ST wave changes, QT is not prolonged, hemoglobin 13.4, platelet count 191 baseline hemoglobin was 11.2 from April 2017., no imaging studies were done, consult were done with Dr. Palacios gastroenterology 03/10 patient underwent endoscopy that suggested a stellate ulcer in the duodenal bulb not bleeding with erythema and signs of erosion in the gastrium. Continue pantoprazole 40 mg twice a day patient initiated on clear liquid diet. Continues to have some shoulder pain for which patient is taking Dyazide ordered 0.5 mg every 3. Lidocaine patch ordered to help with the pain. Patient encouraged to use oral medication. 03/11 patient feels dizzy on standing. at bedside concern about patient's dizziness. Continues to have shoulder pain for which patient takes Dilaudid every 3 hours. Patient encouraged to use oral medication. Dilaudid discontinued. Shoulder x-ray ordered. Tramadol initiated. Patient asked to follow with Dr. Cruz for pain management. Lidocaine patch with slight improvement. diclofenac gel ordered. 03/12: PT has recommended 24 hour care or rehab. Discussed discharge plan with the patient's in detail and due to his poor prognosis of any rehab ability , they would prefer to take the patient home where he is comfortable and in his normal environment. Patient will be discharged home today in stable condition. Discharge diagnoses: 1. Acute upper GI bleed secondary to acute peptic ulcer disease from due to non- bulb ulcers 2. Parkinson's 3. Acute blood loss anemia 4. Diabetes mellitus type 2, insulin requiring 5. Hypothyroidism 6. Hypertension 7. Secondary pulmonary hypertension history, asymptomatic 8. Dysthymia 9. BPH 10. dizziness likely autonomic hypotension secondary to Parkinson's. Discharge plan: Return home Impression and plan of care have been directed as dictated by the signing physician. Magy Lara nurse practitioner acting as scribe for signing physician. Patient Condition at Discharge: Good Plan - Discharge Summary New Discharge Prescriptions: New Diclofenac Sodium Gel [Voltaren Gel] 2 gm TOPICAL QID #1 tube Fludrocortisone [Florinef] 0.05 mg PO DAILY #30 tablet Lidocaine 5% Patch [Lidoderm 5% Patch] 1 patch TOPICAL DAILY #5 patch traMADol HCl [Ultram] 50 mg PO Q4H #18 tab Pantoprazole [Protonix] 40 mg PO AC-BID #60 tablet.dr Continue Aspirin 81 mg PO DAILY Lisinopril [Zestril] 10 mg PO DAILY ALPRAZolam [Xanax] 0.25 mg PO BID PRN PRN Reason: Anxiety Metoprolol Succinate [Toprol XL] 25 mg PO DAILY Folic Acid 1 mg PO DAILY Levothyroxine Sodium [Synthroid] 100 mcg PO DAILY Venlafaxine HCl [Effexor XR] 150 mg PO DAILY Fexofenadine HCl [Dori Allergy] 180 mg PO DAILY PRN PRN Reason: Allergy Symptoms Vit C/E/Zn/Coppr/Lutein/Zeaxan [Preservision Areds 2 Softgel] 1 cap PO BID Insulin Lispro [humaLOG Kwikpen] 15 unit SQ AC-TID Carbidopa-Levodopa 25-100 mg [Sinemet 25-100 mg] 1 tab PO AC-TID Cyanocobalamin [Vitamin B-12] 500 mcg PO DAILY #30 tablet Artificial Tears-Hypromellose [Artificial Tear Drops] 1 - 2 drops BOTH EYES QID Magnesium Oxide 400 mg PO DAILY Atorvastatin Calcium [Lipitor] 10 mg PO DAILY Insulin Degludec [Tresiba Flextouch U-100] 32 unit SQ HS Discontinued metFORMIN HCL 1,000 mg PO BID Empagliflozin [Jardiance] 25 mg PO DAILY Discharge Medication List ALPRAZolam [Xanax] 0.25 mg PO BID PRN 01/10/14 [History] Aspirin 81 mg PO DAILY 01/10/14 [History] Folic Acid 1 mg PO DAILY 01/10/14 [History] Levothyroxine Sodium [Synthroid] 100 mcg PO DAILY 01/10/14 [History] Lisinopril [Zestril] 10 mg PO DAILY 01/10/14 [History] Metoprolol Succinate [Toprol XL] 25 mg PO DAILY 01/10/14 [History] Carbidopa-Levodopa 25-100 mg [Sinemet 25-100 mg] 1 tab PO AC-TID 07/20/16 [ History] Fexofenadine HCl [Dori Allergy] 180 mg PO DAILY PRN 07/20/16 [History] Insulin Lispro [humaLOG Kwikpen] 15 unit SQ AC-TID 07/20/16 [History] Venlafaxine HCl [Effexor XR] 150 mg PO DAILY 07/20/16 [History] Vit C/E/Zn/Coppr/Lutein/Zeaxan [Preservision Areds 2 Softgel] 1 cap PO BID 07/20 [History] Cyanocobalamin [Vitamin B-12] 500 mcg PO DAILY #30 tablet 07/21/16 [Rx] Artificial Tears-Hypromellose [Artificial Tear Drops] 1 - 2 drops BOTH EYES QID 03/08/18 [History] Atorvastatin Calcium [Lipitor] 10 mg PO DAILY 03/08/18 [History] Insulin Degludec [Tresiba Flextouch U-100] 32 unit SQ HS 03/08/18 [History] Magnesium Oxide 400 mg PO DAILY 03/08/18 [History] Diclofenac Sodium Gel [Voltaren Gel] 2 gm TOPICAL QID #1 tube 03/12/18 [Rx] Fludrocortisone [Florinef] 0.05 mg PO DAILY #30 tablet 03/12/18 [Rx] Lidocaine 5% Patch [Lidoderm 5% Patch] 1 patch TOPICAL DAILY #5 patch 03/12/18 [ Rx] Pantoprazole [Protonix] 40 mg PO AC-BID #60 tablet. 03/12/18 [Rx] traMADol HCl [Ultram] 50 mg PO Q4H #18 tab 03/12/18 [Rx] Follow up Appointment(s)/Referral(s): Clyde Sow MD [STAFF PHYSICIAN] - 03/19/18 4:30 pm Elizabeth Cruz MD [Primary Care Provider] - 03/19/18 11:00 am Patient Instructions/Handouts: Gastrointestinal Bleeding (DC) Discharge Disposition: HOME SELF-CARE
== END 2018-03-12 14:10 | disposition home or self-care (01) | DRG 378 ==
LOC: EC 21:03 → 4MS4W 23:30 → OBSVTOIN 03-09 17:29
PROVIDERS: ADMIT Family Medicine; ATTEND Family Medicine
PROC: 0DB78ZX Excision of Stomach, Pylorus, Via Natural or Artificial Opening Endoscopic, Diagnostic (ICD-10-PCS; principal; 2018-03-10 08:00)
DX: K26.0 Acute duodenal ulcer with hemorrhage (principal); D62 Acute posthemorrhagic anemia; G20 Parkinson's disease; I27.29 Other secondary pulmonary hypertension; E11.9 Type 2 diabetes mellitus without complications; D72.829 Elevated white blood cell count, unspecified; E03.9 Hypothyroidism, unspecified; K29.70 Gastritis, unspecified, without bleeding; K29.80 Duodenitis without bleeding; F34.1 Dysthymic disorder; F41.9 Anxiety disorder, unspecified; G47.33 Obstructive sleep apnea (adult) (pediatric); I10 Essential (primary) hypertension; K21.9 Gastro-esophageal reflux disease without esophagitis; K44.9 Diaphragmatic hernia without obstruction or gangrene; N40.0 Benign prostatic hyperplasia without lower urinary tract symptoms; E83.119 Hemochromatosis, unspecified; K57.90 Diverticulosis of intestine, part unspecified, without perforation or abscess without bleeding; M19.90 Unspecified osteoarthritis, unspecified site; F32.9 Major depressive disorder, single episode, unspecified; M25.512 Pain in left shoulder; Z79.4 Long term (current) use of insulin; Z79.82 Long term (current) use of aspirin; Z79.899 Other long term (current) drug therapy; Z79.890 Hormone replacement therapy; Z87.11 Personal history of peptic ulcer disease; Z83.3 Family history of diabetes mellitus; Z84.89 Family history of other specified conditions
CPT/HCPCS: 36415; 43239; 80053; 81003; 82140; 82550; 82553; 82728; 83036; 83540; 83550; 83690; 84484; 85025; 85027; 85610; 85730; 86850; 86900; 86901; 88305; 88342; 93005; 96361; 96374; 99285

== ENCOUNTER 2019-02-19 14:04 | Emergency (ER) | payer MEDICARE, OTHER ==
[2019-02-19] MEDS ORDERED: FAMOTIDINE 20 MG/2 ML VIAL IV STA (15:06)
[2019-02-19] MEDS ORDERED: SODIUM CHLORIDE 0.9% 1,000 ML IV STA ×2 (15:06)
[2019-02-19] MEDS ORDERED: ONDANSETRON 4 MG/2 ML VIAL IVP STA (15:06)
--- NOTE | 2019-02-19 16:23 | ED ---
Psych HPI <ColleenvíctorBorisMiguel Wild - Last Filed: 02/19/19 22:29> - General Source: patient, family, RN notes reviewed Mode of arrival: wheelchair - History of Present Illness MD Complaint: feels depressed, other <Rom Lucio - Last Filed: 02/20/19 07:02> - General Chief Complaint: Psychiatric Symptoms Stated Complaint: Depression, Nausea Time Seen by Provider: 02/19/19 14:33 - History of Present Illness Initial Comments: This is a 78-year-old male with a history of multiple medical problems including depression and Parkinson's disease who was brought in by his for not sleeping for last several days having some intermittent nausea. Little food intake over last several days he is very anxious and depressed. No chest pain no fevers chills cough or phlegm production no dysuria. No other modifying factors no suicidal thoughts however. (Rom Lucio) - Related Data Home Medications Medication Instructions Recorded Confirmed Aspirin 81 mg PO DAILY 01/10/14 02/19/19 Folic Acid 1 mg PO DAILY 01/10/14 02/19/19 Levothyroxine Sodium [Synthroid] 100 mcg PO DAILY 01/10/14 02/19/19 Lisinopril [Zestril] 10 mg PO DAILY 01/10/14 02/19/19 Metoprolol Succinate [Toprol XL] 25 mg PO DAILY 01/10/14 02/19/19 Carbidopa-Levodopa 25-100 mg 1 tab PO AC-TID 07/20/16 02/19/19 [Sinemet 25-100 mg] Fexofenadine HCl [Dori Allergy] 180 mg PO DAILY PRN 07/20/16 02/19/19 Insulin Lispro [humaLOG Kwikpen] 15 unit SQ AC-TID 07/20/16 02/19/19 Venlafaxine HCl [Effexor XR] 150 mg PO DAILY 07/20/16 02/19/19 Vit C/E/Zn/Coppr/Lutein/Zeaxan 1 cap PO BID 07/20/16 02/19/19 [Preservision Areds 2 Softgel] Insulin Degludec [Tresiba 32 unit SQ HS 03/08/18 02/19/19 Flextouch U-100] Magnesium Oxide 400 mg PO DAILY 03/08/18 02/19/19 Cyanocobalamin [Vitamin B-12] 500 mcg PO BID 02/19/19 02/19/19 Donepezil HCl [Aricept] 10 mg PO DAILY 02/19/19 02/19/19 Venlafaxine HCl ER [Effexor Xr] 75 mg PO DAILY 02/19/19 02/19/19 Allergies Allergy/AdvReac Type Severity Reaction Status Date / Time No Known Allergies Allergy Verified 02/19/19 15:55 Review of Systems ROS Other: All systems not noted in ROS Statement are negative. <Miguel Washburn - Last Filed: 02/19/19 22:29> ROS Other: All systems not noted in ROS Statement are negative. <Rom Lucio - Last Filed: 02/20/19 07:02> ROS Statement: Those systems with pertinent positive or pertinent negative responses have been documented in the HPI. Past Medical History Past Medical History: Diabetes Mellitus, GERD/Reflux, Hypertension, Neurologic Disorder, Osteoarthritis (OA), Sleep Apnea/CPAP/BIPAP, Thyroid Disorder Additional Past Medical History / Comment(s): PROLAPSED HEART VALVE, HEMOCHROMATOSIS, OCC. SWELLING IN FEET, FREQUENT CONSTIPATION, Parkinsons disease History of Any Multi-Drug Resistant Organisms: None Reported Past Surgical History: Orthopedic Surgery Additional Past Surgical History / Comment(s): RIGHT ROTATOR CUFF, LEFT SHOULDER ARTHROSCOPY Past Anesthesia/Blood Transfusion Reactions: No Reported Reaction Past Psychological History: Anxiety, Depression Smoking Status: Never smoker Past Alcohol Use History: Rare Past Drug Use History: None Reported - Past Family History Mother Family Medical History: Diabetes Mellitus Brother(s) Family Medical History: Blood Disorder Additional Family Medical History / Comment(s): hemachromatosis <Rom Lucio - Last Filed: 02/20/19 07:02> General Exam Limitations: physical limitation General appearance: alert, in no apparent distress Head exam: Present: atraumatic, normocephalic, normal inspection Eye exam: Present: normal appearance, PERRL, EOMI. Absent: scleral icterus, conjunctival injection, periorbital swelling ENT exam: Present: mucous membranes dry Neck exam: Present: normal inspection, full ROM, other (No stridor JVD or bruits). Absent: tenderness, meningismus, lymphadenopathy Respiratory exam: Present: normal lung sounds bilaterally. Absent: respiratory distress, wheezes, rales, rhonchi, stridor Cardiovascular Exam: Present: regular rate, normal rhythm, normal heart sounds. Absent: systolic murmur, diastolic murmur, rubs, gallop, clicks GI/Abdominal exam: Present: soft, normal bowel sounds. Absent: distended, tenderness, guarding, rebound, rigid, bruit, pulsatile mass Extremities exam: Present: normal inspection, full ROM, normal capillary refill. Absent: tenderness, pedal edema, joint swelling, calf tenderness Back exam: Present: normal inspection Neurological exam: Present: alert, oriented X3, CN II-XII intact, other (Does demonstrate some tremor consistent with Parkinson's) Psychiatric exam: Present: depressed, flat affect Skin exam: Present: warm, dry, intact, normal color. Absent: rash <Rom Lucio - Last Filed: 02/20/19 07:02> - General Exam Comments Initial Comments: Is a well-developed well-nourished awake alert oriented 5 male (Rom Lucio) Course <Rom Lucio - Last Filed: 02/20/19 07:02> Vital Signs 02/19/19 02/19/19 02/19/19 14:25 17:36 21:43 Temperature 98.6 F 97.9 F Pulse Rate 86 68 71 Respiratory 18 18 16 Rate Blood Pressure 154/93 162/71 159/82 O2 Sat by Pulse 97 99 98 Oximetry - Reevaluation(s) Reevaluation #1: 02/19/19 16:38 Patient's care will be endorsed to Dr. Washburn at shift change (Rom Lucio) Medical Decision Making - Lab Data Result diagrams: 02/19/19 16:26 02/19/19 16:26 <Miguel Washburn - Last Filed: 02/19/19 22:29> - Lab Data Result diagrams: 02/19/19 16:26 02/19/19 16:26 - EKG Data -: EKG Interpreted by Me EKG shows normal: sinus rhythm (Sinus rhythm a 78. Interval 164 QRS 96 QT since QTC 412/[address] configuration.) <Rom Lucio - Last Filed: 02/20/19 07:02> - Medical Decision Making 78 male that he seen and evaluated by psych, patient was seen and evaluated here in the ER stable for discharge home (Miguel Washburn) - Lab Data Lab Results 02/19/19 02/19/19 02/19/19 Range/Units 16:26 16:26 16:26 WBC 11.6 H (3.8-10.6) k/uL RBC 5.54 (4.30-5.90) m/uL Hgb 16.6 (13.0-17.5) gm/dL Hct 48.9 (39.0-53.0) % MCV 88.2 (80.0-100.0) fL MCH 29.9 (25.0-35.0) pg MCHC 33.9 (31.0-37.0) g/dL RDW 13.6 (11.5-15.5) % Plt Count 224 (150-450) k/uL Neutrophils % 79 % Lymphocytes % 14 % Monocytes % 5 % Eosinophils % 0 % Basophils % 0 % Neutrophils # 9.1 H (1.3-7.7) k/uL Lymphocytes # 1.6 (1.0-4.8) k/uL Monocytes # 0.6 (0-1.0) k/uL Eosinophils # 0.1 (0-0.7) k/uL Basophils # 0.1 (0-0.2) k/uL Sodium 136 L (137-145) mmol/L Potassium 4.3 (3.5-5.1) mmol/L Chloride 98 (98-107) mmol/L Carbon Dioxide 29 (22-30) mmol/L Anion Gap 9 mmol/L BUN 25 H (9-20) mg/dL Creatinine 1.06 (0.66-1.25) mg/dL Est GFR (CKD-EPI)AfAm 79 (>60 ml/min/1.73 sqM) Est GFR (CKD-EPI)NonAf 68 (>60 ml/min/1.73 sqM) Glucose 169 H (74-99) mg/dL Calcium 9.5 (8.4-10.2) mg/dL Magnesium 1.9 (1.6-2.3) mg/dL Total Bilirubin 1.0 (0.2-1.3) mg/dL AST 32 (17-59) U/L ALT 33 (21-72) U/L Alkaline Phosphatase 86 (38-126) U/L Ammonia (<30) umol/L Total Creatine Kinase 64 (55-170) U/L CK-MB (CK-2) 1.4 (0.0-2.4) ng/mL CK-MB (CK-2) Rel Index 2.2 Total Protein 7.1 (6.3-8.2) g/dL Albumin 4.2 (3.5-5.0) g/dL Urine Color Urine Appearance (Clear) Urine pH (5.0-8.0) Ur Specific [place] (1.001-1.035) Urine Protein (Negative) Urine Glucose (UA) (Negative) Urine Ketones (Negative) Urine Blood (Negative) Urine Nitrite (Negative) Urine Bilirubin (Negative) Urine Urobilinogen (<2.0) mg/dL Ur Leukocyte Esterase (Negative) Urine RBC (0-5) /hpf Urine WBC (0-5) /hpf Ur Squamous Epith Cells (0-4) /hpf Amorphous Sediment (None) /hpf Hyaline Casts (0-2) /lpf Urine Mucus (None) /hpf Urine Opiates Screen (NotDetected) Ur Oxycodone Screen (NotDetected) Urine Methadone Screen (NotDetected) Ur Propoxyphene Screen (NotDetected) Ur Barbiturates Screen (NotDetected) U Tricyclic Antidepress (NotDetected) Ur Phencyclidine Scrn (NotDetected) Ur Amphetamines Screen (NotDetected) U Methamphetamines Scrn (NotDetected) U Benzodiazepines Scrn (NotDetected) Urine Cocaine Screen (NotDetected) U Marijuana (THC) Screen (NotDetected) Serum Alcohol <10 mg/dL 02/19/19 02/19/19 Range/Units 16:26 17:47 WBC (3.8-10.6) k/uL RBC (4.30-5.90) m/uL Hgb (13.0-17.5) gm/dL Hct (39.0-53.0) % MCV (80.0-100.0) fL MCH (25.0-35.0) pg MCHC (31.0-37.0) g/dL RDW (11.5-15.5) % Plt Count (150-450) k/uL Neutrophils % % Lymphocytes % % Monocytes % % Eosinophils % % Basophils % % Neutrophils # (1.3-7.7) k/uL Lymphocytes # (1.0-4.8) k/uL Monocytes # (0-1.0) k/uL Eosinophils # (0-0.7) k/uL Basophils # (0-0.2) k/uL Sodium (137-145) mmol/L Potassium (3.5-5.1) mmol/L Chloride (98-107) mmol/L Carbon Dioxide (22-30) mmol/L Anion Gap mmol/L BUN (9-20) mg/dL Creatinine (0.66-1.25) mg/dL Est GFR (CKD-EPI)AfAm (>60 ml/min/1.73 sqM) Est GFR (CKD-EPI)NonAf (>60 ml/min/1.73 sqM) Glucose (74-99) mg/dL Calcium (8.4-10.2) mg/dL Magnesium (1.6-2.3) mg/dL Total Bilirubin (0.2-1.3) mg/dL AST (17-59) U/L ALT (21-72) U/L Alkaline Phosphatase (38-126) U/L Ammonia <9 (<30) umol/L Total Creatine Kinase (55-170) U/L CK-MB (CK-2) (0.0-2.4) ng/mL CK-MB (CK-2) Rel Index Total Protein (6.3-8.2) g/dL Albumin (3.5-5.0) g/dL Urine Color Dark Yellow Urine Appearance Clear (Clear) Urine pH 6.0 (5.0-8.0) Ur Specific [place] 1.025 (1.001-1.035) Urine Protein 3+ H (Negative) Urine Glucose (UA) Negative (Negative) Urine Ketones 1+ H (Negative) Urine Blood Negative (Negative) Urine Nitrite Negative (Negative) Urine Bilirubin Negative (Negative) Urine Urobilinogen <2.0 (<2.0) mg/dL Ur Leukocyte Esterase Negative (Negative) Urine RBC 1 (0-5) /hpf Urine WBC 5 (0-5) /hpf Ur Squamous Epith Cells 1 (0-4) /hpf Amorphous Sediment Rare H (None) /hpf Hyaline Casts 61 H (0-2) /lpf Urine Mucus Few H (None) /hpf Urine Opiates Screen Not Detected (NotDetected) Ur Oxycodone Screen Not Detected (NotDetected) Urine Methadone Screen Not Detected (NotDetected) Ur Propoxyphene Screen Not Detected (NotDetected) Ur Barbiturates Screen Not Detected (NotDetected) U Tricyclic Antidepress Not Detected (NotDetected) Ur Phencyclidine Scrn Detected H (NotDetected) Ur Amphetamines Screen Not Detected (NotDetected) U Methamphetamines Scrn Not Detected (NotDetected) U Benzodiazepines Scrn Detected H (NotDetected) Urine Cocaine Screen Not Detected (NotDetected) U Marijuana (THC) Screen Not Detected (NotDetected) Serum Alcohol mg/dL Disposition Is patient prescribed a controlled substance at d/c from ED?: No <Miguel Washburn - Last Filed: 02/19/19 22:29> Is patient prescribed a controlled substance at d/c from ED?: No <Rom Lucio - Last Filed: 02/20/19 07:02> Clinical Impression: Depression Disposition: HOME SELF-CARE Condition: Fair Instructions (If sedation given, give patient instructions): Depression (ED) Referrals: Elizabeth Cruz MD [Primary Care Provider] - 1-2 days
[2019-02-19 16:43] LABS: Amorphous Sediment,Urine Rare /hpf; Appearance,Urine Clear (Clear); Bilirubin,Urine Negative (Negative); Blood,Urine Negative (Negative); Color,Urine Dark Yellow; Glucose,Urine (UA) Negative (Negative); Hyaline Casts,Urine 61 /lpf (0-2); Ketones,Urine 1+ (Negative); Leukocyte Esterase,Urine Negative (Negative); Mucus,Urine Few /hpf; Nitrite,Urine Negative (Negative); Protein,Urine 3+ (Negative); RBC,Urine 1 /hpf (0-5); Specific Gravity,Urine 1.025 (1.001-1.035); Squamous Epithelial Cell,Urine 1 /hpf (0-4); Urobilinogen,Urine <2.0 mg/dL (<2.0)
[2019-02-19 16:44] LABS: Basophils # (A) 0.1 k/uL (0-0.2); Basophils % (A) 0 %; Eosinophils # (A) 0.1 k/uL (0-0.7); Eosinophils % (A) 0 %; HCT 48.9 % (39.0-53.0); HGB 16.6 gm/dL (13.0-17.5); Lymphocytes # (A) 1.6 k/uL (1.0-4.8); Lymphocytes % (A) 14 %; MCH 29.9 pg (25.0-35.0); MCHC 33.9 g/dL (31.0-37.0); MCV 88.2 fL (80.0-100.0); Mean Platelet Volume 7.3; Monocytes # (A) 0.6 k/uL (0-1.0); Monocytes % (A) 5 %; Neutrophils # (A) 9.1 k/uL (1.3-7.7); Neutrophils % (A) 79 %; Platelet Count 224 k/uL (150-450); RBC 5.54 m/uL (4.30-5.90); RDW 13.6 % (11.5-15.5); WBC 11.6 k/uL (3.8-10.6)
[2019-02-19 16:49] LABS: ALT 33 U/L (21-72); AST 32 U/L (17-59); African American GFR (CKD) 79 (>60 ml/min/1.73 sqM); Albumin 4.2 g/dL (3.5-5.0); Alcohol <10 mg/dL; Alkaline Phosphatase 86 U/L (38-126); Anion Gap 9 mmol/L; Blood Urea Nitrogen 25 mg/dL (9-20); Calcium 9.5 mg/dL (8.4-10.2); Carbon Dioxide 29 mmol/L (22-30); Chloride 98 mmol/L (98-107); Glucose 169 mg/dL (74-99); Magnesium 1.9 mg/dL (1.6-2.3); Potassium 4.3 mmol/L (3.5-5.1); Sodium 136 mmol/L (137-145); Total Protein 7.1 g/dL (6.3-8.2)
[2019-02-19 16:50] LABS: Amphetamine Screen,Urine Not Detected (NotDetected); Barbiturate Screen,Urine Not Detected (NotDetected); Benzodiazepines Screen,Urine Detected (NotDetected); Cocaine Screen,Urine Not Detected (NotDetected); Methadone Screen, Urine Not Detected (NotDetected); Opiate Screen,Urine Not Detected (NotDetected); Oxycodone Screen, Urine Not Detected (NotDetected); Phencyclidine Screen,Urine Detected (NotDetected); Tricyclic Antidepressant,Urine Not Detected (NotDetected); Urn Cannabinoid Scrn Not Detected (NotDetected)
[2019-02-19 17:00] LABS: Creatine Kinase MB 1.4 ng/mL (0.0-2.4)
--- NOTE | 2019-02-19 17:08 | XR ---
EXAMINATION TYPE: XR chest 2V DATE OF EXAM: 02/19/2019 COMPARISON: 04/23/2017 HISTORY: Abdominal pain TECHNIQUE: Frontal and lateral views of the chest are obtained. FINDINGS: There is no heart failure nor confluent pneumonic infiltrate. Heart size is fairly normal. There is no pleural effusion. Bony thorax is intact. IMPRESSION: No active cardiopulmonary disease. Normal heart. No change.
[2019-02-19 21:44] VITALS: BP 159/82; PULSE 71; RESP 16; TEMP 97.9
== END 2019-02-19 23:08 | disposition home or self-care (01) ==
LOC: EC 14:04
DX: F32.9 Major depressive disorder, single episode, unspecified (principal); R11.0 Nausea; E11.9 Type 2 diabetes mellitus without complications; I10 Essential (primary) hypertension; E07.9 Disorder of thyroid, unspecified; G20 Parkinson's disease; F41.9 Anxiety disorder, unspecified; G47.30 Sleep apnea, unspecified; Z99.89 Dependence on other enabling machines and devices; Z79.82 Long term (current) use of aspirin; Z79.890 Hormone replacement therapy; Z79.4 Long term (current) use of insulin; Z79.899 Other long term (current) drug therapy
CPT/HCPCS: 36415; 93005; 80053; 82140; 82550; 82553; 83735; 85025; 81001; 80306; 87086; 71046; 99284; 96374; 96375; 96361 ×4; G0480; J2405; 80320

== ENCOUNTER 2019-02-21 08:20 | Inpatient (IN) | payer MEDICARE, OTHER ==
[2019-02-21] MEDS ORDERED: SODIUM CHLORIDE 0.9% 1,000 ML IV STA (08:34)
[2019-02-21] MEDS ORDERED: PANTOPRAZOLE 40 MG/10 ML VIAL IVP STA (08:38)
--- NOTE | 2019-02-21 08:43 | ED ---
General Adult HPI - General Source: patient, EMS, RN notes reviewed, old records reviewed Mode of arrival: EMS Limitations: no limitations <Salvatore Lamar - Last Filed: 02/21/19 11:06> <Rom Lucio - Last Filed: 02/21/19 11:33> - General Stated complaint: Fall Time Seen by Provider: 02/21/19 08:22 - History of Present Illness Initial comments: This is a 78-year-old male presents emergency department via EMS for syncopal episode. Patient reportedly went to the bathroom and felt lightheaded states that he passed out. Patient does complain of right leg pain, right elbow pain, neck pain. Patient states is up-to-date on tetanus. Patient states that he was recently in the hospital for dehydration. Patient was found to have black s tool, bright red blood noted on him. Patient states that he's had a GI bleed in the past. Patient states he feels better at this time but still feels slightly lightheaded complains of mild headache and mild left-sided neck discomfort. Patient was placed in a c-collar by EMS. Patient has no current nausea vomiting. Denies any focal weakness. (Salvatore Lamar) - Related Data Home Medications Medication Instructions Recorded Confirmed Aspirin 81 mg PO DAILY 01/10/14 02/21/19 Folic Acid 1 mg PO DAILY 01/10/14 02/21/19 Levothyroxine Sodium [Synthroid] 100 mcg PO DAILY 01/10/14 02/21/19 Lisinopril [Zestril] 10 mg PO DAILY 01/10/14 02/21/19 Metoprolol Succinate [Toprol XL] 25 mg PO DAILY 01/10/14 02/21/19 Carbidopa-Levodopa 25-100 mg 1 tab PO AC-TID 07/20/16 02/21/19 [Sinemet 25-100 mg] Fexofenadine HCl [Dori Allergy] 180 mg PO DAILY PRN 07/20/16 02/21/19 Insulin Lispro [humaLOG Kwikpen] 15 unit SQ AC-TID 07/20/16 02/21/19 Venlafaxine HCl [Effexor XR] 150 mg PO DAILY 07/20/16 02/21/19 Vit C/E/Zn/Coppr/Lutein/Zeaxan 1 cap PO BID 07/20/16 02/21/19 [Preservision Areds 2 Softgel] Insulin Degludec [Tresiba 32 unit SQ HS 03/08/18 02/21/19 Flextouch U-100] Magnesium Oxide 400 mg PO DAILY 03/08/18 02/21/19 Cyanocobalamin [Vitamin B-12] 500 mcg PO BID 02/19/19 02/21/19 Donepezil HCl [Aricept] 10 mg PO DAILY 02/19/19 02/21/19 Venlafaxine HCl ER [Effexor Xr] 75 mg PO DAILY 02/19/19 02/21/19 Allergies Allergy/AdvReac Type Severity Reaction Status Date / Time No Known Allergies Allergy Verified 02/21/19 09:03 Review of Systems ROS Other: All systems not noted in ROS Statement are negative. <Salvatore Lamar - Last Filed: 02/21/19 11:06> ROS Other: All systems not noted in ROS Statement are negative. <Rom Lucio - Last Filed: 02/21/19 11:33> ROS Statement: Those systems with pertinent positive or pertinent negative responses have been documented in the HPI. Past Medical History Past Medical History: Diabetes Mellitus, GERD/Reflux, Hypertension, Neurologic Disorder, Osteoarthritis (OA), Sleep Apnea/CPAP/BIPAP, Thyroid Disorder Additional Past Medical History / Comment(s): PROLAPSED HEART VALVE, HEMOCHROMATOSIS, OCC. SWELLING IN FEET, FREQUENT CONSTIPATION, Parkinsons disease History of Any Multi-Drug Resistant Organisms: None Reported Past Surgical History: Orthopedic Surgery Additional Past Surgical History / Comment(s): RIGHT ROTATOR CUFF, LEFT SHOULDER ARTHROSCOPY Past Anesthesia/Blood Transfusion Reactions: No Reported Reaction Past Psychological History: Anxiety, Depression Smoking Status: Never smoker Past Alcohol Use History: Rare Past Drug Use History: None Reported - Past Family History Mother Family Medical History: Diabetes Mellitus Brother(s) Family Medical History: Blood Disorder Additional Family Medical History / Comment(s): hemachromatosis <Salvatore Lamar - Last Filed: 02/21/19 11:06> General Exam Limitations: no limitations General appearance: alert, in no apparent distress Head exam: Present: atraumatic, normocephalic, normal inspection Eye exam: Present: normal appearance, PERRL, EOMI. Absent: scleral icterus, conjunctival injection, periorbital swelling ENT exam: Present: normal exam, normal oropharynx, mucous membranes moist, TM's normal bilaterally Neck exam: Present: normal inspection, tenderness. Absent: meningismus, full ROM (Patient in c-collar), lymphadenopathy Respiratory exam: Present: normal lung sounds bilaterally. Absent: respiratory distress, wheezes, rales, rhonchi, stridor, chest wall tenderness Cardiovascular Exam: Present: regular rate, normal rhythm, normal heart sounds. Absent: systolic murmur, diastolic murmur, rubs, gallop, clicks GI/Abdominal exam: Present: soft, tenderness (Mild diffuse), normal bowel sounds. Absent: distended, guarding, rebound, rigid Extremities exam: Present: other (Large abrasion the right lateral leg, abrasion noted to the upper extremities, tenderness the right tib-fib region, right elbow though full range of motion of all joints) Back exam: Present: full ROM. Absent: tenderness, paraspinal tenderness, vertebral tenderness Neurological exam: Present: alert, oriented X3, CN II-XII intact, reflexes normal. Absent: motor sensory deficit Skin exam: Present: warm, dry, intact, normal color. Absent: rash <Salvatore Lamar - Last Filed: 02/21/19 11:06> Course <Rom uLcio - Last Filed: 02/21/19 11:33> Vital Signs 02/21/19 02/21/19 08:34 10:51 Temperature 98.2 F Pulse Rate 86 69 Respiratory 18 18 Rate Blood Pressure 121/82 154/93 O2 Sat by Pulse 99 100 Oximetry - Reevaluation(s) Reevaluation #1: 02/21/19 11:32 PA supervision: I proceeded [id number] evaluation the patient did demonstrate evidence of a syncopal episode this morning while in the bathroom. He did have some abrasions including to his right lower extremity no evidence of any fractures. He did have large amounts of black stool I did perform a rectal exam on the patient no masses were palpable of the rectum however there was black stool was heme positive. Those hemoglobin level is within normal limits he does demonstrate an elevated BUN which may be indicative of an upper GI bleed. I did discuss case with him and his as well as with Dr. Judge patient will be admitted with GI consultation. (Rom Lucio) EKG Findings - EKG Comments: EKG Findings:: EKG performed at 8:44 sinus rhythm with PVC, nonspecific T-wave changes, rate of 83 DC interval 140 QRS 70 QT/QTC 400/470 <Salvatore Lamar - Last Filed: 02/21/19 11:06> Medical Decision Making - Lab Data Result diagrams: 02/21/19 08:37 02/21/19 08:37 <Salvatore Lamar - Last Filed: 02/21/19 11:06> - Lab Data Result diagrams: 02/21/19 08:37 02/21/19 08:37 <Rom Lucio - Last Filed: 02/21/19 11:33> - Medical Decision Making 78-year-old male presented for syncopal episode, possible GI bleed. Patient's hemoglobin is stable. Patient we admitted for GI bleed, syncopal episode for further management and evaluation. (Salvatore Lamar) - Lab Data Lab Results 02/21/19 02/21/19 02/21/19 Range/Units 08:37 08:37 08:37 WBC 11.8 H (3.8-10.6) k/uL RBC 4.71 (4.30-5.90) m/uL Hgb 14.0 (13.0-17.5) gm/dL Hct 40.7 (39.0-53.0) % MCV 86.4 (80.0-100.0) fL MCH 29.8 (25.0-35.0) pg MCHC 34.4 (31.0-37.0) g/dL RDW 14.2 (11.5-15.5) % Plt Count 213 (150-450) k/uL Neutrophils % 80 % Lymphocytes % 13 % Monocytes % 6 % Eosinophils % 1 % Basophils % 1 % Neutrophils # 9.4 H (1.3-7.7) k/uL Lymphocytes # 1.5 (1.0-4.8) k/uL Monocytes # 0.7 (0-1.0) k/uL Eosinophils # 0.1 (0-0.7) k/uL Basophils # 0.1 (0-0.2) k/uL PT 11.0 (9.0-12.0) sec INR 1.0 (<1.2) APTT 26.3 (22.0-30.0) sec Sodium 136 L (137-145) mmol/L Potassium 4.2 (3.5-5.1) mmol/L Chloride 102 (98-107) mmol/L Carbon Dioxide 26 (22-30) mmol/L Anion Gap 8 mmol/L BUN 36 H (9-20) mg/dL Creatinine 1.09 (0.66-1.25) mg/dL Est GFR (CKD-EPI)AfAm 76 (>60 ml/min/1.73 sqM) Est GFR (CKD-EPI)NonAf 66 (>60 ml/min/1.73 sqM) Glucose 188 H (74-99) mg/dL Calcium 8.8 (8.4-10.2) mg/dL Magnesium 2.0 (1.6-2.3) mg/dL Total Bilirubin 1.0 (0.2-1.3) mg/dL AST 29 (17-59) U/L ALT 26 (21-72) U/L Alkaline Phosphatase 56 (38-126) U/L Creatine Kinase 97 (55-170) U/L Troponin I (0.000-0.034) ng/mL Total Protein 5.7 L (6.3-8.2) g/dL Albumin 3.2 L (3.5-5.0) g/dL Urine Color Urine Appearance (Clear) Urine pH (5.0-8.0) Ur Specific [place] (1.001-1.035) Urine Protein (Negative) Urine Glucose (UA) (Negative) Urine Ketones (Negative) Urine Blood (Negative) Urine Nitrite (Negative) Urine Bilirubin (Negative) Urine Urobilinogen (<2.0) mg/dL Ur Leukocyte Esterase (Negative) Urine RBC (0-5) /hpf Urine WBC (0-5) /hpf Hyaline Casts (0-2) /lpf Urine Mucus (None) /hpf Urine Sperm (None) /hpf 02/21/19 02/21/19 Range/Units 08:37 09:41 WBC (3.8-10.6) k/uL RBC (4.30-5.90) m/uL Hgb (13.0-17.5) gm/dL Hct (39.0-53.0) % MCV (80.0-100.0) fL MCH (25.0-35.0) pg MCHC (31.0-37.0) g/dL RDW (11.5-15.5) % Plt Count (150-450) k/uL Neutrophils % % Lymphocytes % % Monocytes % % Eosinophils % % Basophils % % Neutrophils # (1.3-7.7) k/uL Lymphocytes # (1.0-4.8) k/uL Monocytes # (0-1.0) k/uL Eosinophils # (0-0.7) k/uL Basophils # (0-0.2) k/uL PT (9.0-12.0) sec INR (<1.2) APTT (22.0-30.0) sec Sodium (137-145) mmol/L Potassium (3.5-5.1) mmol/L Chloride (98-107) mmol/L Carbon Dioxide (22-30) mmol/L Anion Gap mmol/L BUN (9-20) mg/dL Creatinine (0.66-1.25) mg/dL Est GFR (CKD-EPI)AfAm (>60 ml/min/1.73 sqM) Est GFR (CKD-EPI)NonAf (>60 ml/min/1.73 sqM) Glucose (74-99) mg/dL Calcium (8.4-10.2) mg/dL Magnesium (1.6-2.3) mg/dL Total Bilirubin (0.2-1.3) mg/dL AST (17-59) U/L ALT (21-72) U/L Alkaline Phosphatase (38-126) U/L Creatine Kinase (55-170) U/L Troponin I 0.014 (0.000-0.034) ng/mL Total Protein (6.3-8.2) g/dL Albumin (3.5-5.0) g/dL Urine Color Yellow Urine Appearance Clear (Clear) Urine pH 5.5 (5.0-8.0) Ur Specific [place] 1.018 (1.001-1.035) Urine Protein 1+ H (Negative) Urine Glucose (UA) Trace H (Negative) Urine Ketones 1+ H (Negative) Urine Blood Trace H (Negative) Urine Nitrite Negative (Negative) Urine Bilirubin Negative (Negative) Urine Urobilinogen <2.0 (<2.0) mg/dL Ur Leukocyte Esterase Negative (Negative) Urine RBC 1 (0-5) /hpf Urine WBC 1 (0-5) /hpf Hyaline Casts 12 H (0-2) /lpf Urine Mucus Rare H (None) /hpf Urine Sperm Rare (None) /hpf Critical Care Time Critical Care Time: Yes Total Critical Care Time: 35 <Salvatore Lamar - Last Filed: 02/21/19 11:06> Critical Care Time: Total 35 minutes of critical care time were used to initially evaluated patient, reviewed past medical history, review vitals, medications. Initial labs including CBC, CMP, troponin, urinalysis, EKG, imaging was ordered. Imaging is negative for acute findings EKG does not reveal any acute PA or acute changes. Patient is guaiac positive and was given Protonix for GI bleed. Patient will be admitted for fluid resuscitation, GI evaluation, repeat H&H. (Salvatore Lamar) Disposition <Salvatore Lamar - Last Filed: 02/21/19 11:06> <Rom Lucio - Last Filed: 02/21/19 11:33> Clinical Impression: Syncope, GI bleed, Dehydration, Contusion of leg Disposition: ADMITTED IP TO THIS HOSP Condition: Fair Referrals: Elizabeth Cruz MD [Primary Care Provider] - 1-2 days
[2019-02-21 08:59] LABS: Basophils # (A) 0.1 k/uL (0-0.2); Basophils % (A) 1 %; Eosinophils # (A) 0.1 k/uL (0-0.7); Eosinophils % (A) 1 %; HCT 40.7 % (39.0-53.0); Lymphocytes # (A) 1.5 k/uL (1.0-4.8); Lymphocytes % (A) 13 %; MCH 29.8 pg (25.0-35.0); MCHC 34.4 g/dL (31.0-37.0); MCV 86.4 fL (80.0-100.0); Mean Platelet Volume 7.5; Monocytes # (A) 0.7 k/uL (0-1.0); Monocytes % (A) 6 %; Neutrophils # (A) 9.4 k/uL (1.3-7.7); Neutrophils % (A) 80 %; Platelet Count 213 k/uL (150-450); RBC 4.71 m/uL (4.30-5.90); RDW 14.2 % (11.5-15.5); WBC 11.8 k/uL (3.8-10.6)
[2019-02-21 09:03] LABS: Partial Thromboplastin Time 26.3 sec (22.0-30.0)
[2019-02-21 09:11] LABS: Albumin 3.2 g/dL (3.5-5.0); Calcium 8.8 mg/dL (8.4-10.2); Potassium 4.2 mmol/L (3.5-5.1); Total Protein 5.7 g/dL (6.3-8.2)
--- NOTE | 2019-02-21 09:35 | CT ---
EXAMINATION TYPE: CT brain marcelino wo con DATE OF EXAM: 02/21/2019 COMPARISON: 04/23/2017 HISTORY: 78-year-old male Syncope, neck pain and head injury. CT DLP: 1594.7 mGycm Automated exposure control for dose reduction was used. Technique: Examination of the head was done in axial plane without intravenous contrast. Coronal and sagittal reconstructions performed. CT of the cervical spine was obtained in axial plane without intravenous injection of contrast mater ial. Coronal and sagittal reformatted images were obtained from the axial views for evaluation of f ractures, spinal alignment and canal. FINDINGS: Head: There is no evidence of acute intracranial hemorrhage, acute ischemic changes, mass, mass-effect, or extra-axial fluid collection. There is no effacement of cerebral sulci or basal subarachnoid cister ns. There is no hydrocephalus. There is no midline shift. Booth-white matter distinction is preserv ed. Scattered mild mucosal thickening ethmoid air cells and frontal sinuses. Mastoid air cells well pneum atized. Orbits and globes appear intact. No calvarial fracture. 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 No craniocervical junction abnormality predental space widening, or prevertebral soft tissue swelling . Degenerative changes of the C1 dens articulation. Facet and uncovertebral joint arthropathy throughout. Grade 1 anterolisthesis at C5-C6. Anterior endplate spondylosis lower cervical and upper thoracic spine compatible with DISH. Variable mild to moderate neural foraminal stenoses throughout Sagittal and coronal reformatted images confirm above findings. COMBINED IMPRESSION: 1. Stable mild to moderate cerebral cortical atrophy. No acute intracranial abnormality seen. 2. No acute fracture of the cervical spine. Mild to moderate spondylotic change with degenerative gra de 1 anterolisthesis at C5-C6. 3. 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
[2019-02-21 10:02] LABS: Appearance,Urine Clear (Clear); Bilirubin,Urine Negative (Negative); Blood,Urine Trace (Negative); Color,Urine Yellow; Glucose,Urine (UA) Trace (Negative); Hyaline Casts,Urine 12 /lpf (0-2); Ketones,Urine 1+ (Negative); Leukocyte Esterase,Urine Negative (Negative); Mucus,Urine Rare /hpf; Nitrite,Urine Negative (Negative); PH, Urine 5.5 (5.0-8.0); Protein,Urine 1+ (Negative); RBC,Urine 1 /hpf (0-5); Specific Gravity,Urine 1.018 (1.001-1.035); Sperm,Urine Rare /hpf; Urobilinogen,Urine <2.0 mg/dL (<2.0); WBC,Urine 1 /hpf (0-5)
--- NOTE | 2019-02-21 10:48 | XR ---
AP pelvis HISTORY: Trauma, pain Single frontal view of the pelvis correlated to prior exam dated 04/23/2017 Bone mineralization, joint spaces and alignment are maintained. Degenerative disc changes are present in the visualized spine. IMPRESSION: No fracture or dislocation.
--- NOTE | 2019-02-21 10:50 | XR ---
EXAMINATION TYPE: XR chest 1V DATE OF EXAM: 02/21/2019 COMPARISON: Prior chest x-ray 02/19/2019 HISTORY: Syncope, trauma and pain TECHNIQUE: Single frontal view of the chest is obtained. FINDINGS: There are overlying cardiac leads. No evident airspace disease, pneumothorax, or pleural e ffusion. Cardiac mediastinal silhouette, pulmonary vascularity and jana are stable. Heart size is bor derline enlarged. IMPRESSION: No acute process. Cardiomegaly.
--- NOTE | 2019-02-21 10:51 | XR ---
Right leg HISTORY: Trauma and pain 2 views of the right leg on 4 images Osteoarthritic change noted in the right knee. Bone mineralization and alignment are maintained. Ther e is a plantar spur. IMPRESSION: No fracture or dislocation.
--- NOTE | 2019-02-21 10:53 | XR ---
Right elbow HISTORY: Trauma and pain 3 views of the right elbow Bone mineralization, joint spaces and alignment are maintained. Enthesophyte present at the insertion of triceps tendon. No evident joint effusion. IMPRESSION: No fracture or dislocation.
[2019-02-21] MEDS ORDERED: ONDANSETRON 4 MG/2 ML VIAL IVP PRN (11:09)
[2019-02-21] MEDS ORDERED: NALOXONE 0.4 MG/ML 1 ML VIAL IV PRN (11:09)
[2019-02-21 13:10] LABS: Glucose,Whole Blood 165 mg/dL (75-99)
[2019-02-21] MEDS: SODIUM CHLORIDE 0.9% 1,000 ML IV SCH (13:57)
--- NOTE | 2019-02-21 15:17 | P.CNPUL ---
History of Present Illness Consult date: 02/21/19 Requesting physician: Wang Judge Reason for consult: other (Critical care management) Chief complaint: GI bleed History of present illness: This is a very pleasant 78-year-old gentleman who follows with Dr. Cruz as his primary care physician. He has a history of Parkinson's disease, depression, hypothyroidism, diabetes mellitus, hypertension, previous GI bleed. He had undergone EGD with biopsy in March 2018. There was a small sliding hiatal hernia with no obvious esophagitis or complicated reflux disease. There was gastritis and duodenitis with duodenal bulb ulcer not actively bleeding at that time. Biopsies were negative for malignancy. No pathology. Early this morning he was up in the bathroom and had a large amount of lea stool and a syncopal episode. His heard him fall. He was brought here by EMS for the same. He did sustain minor injuries to his right lower extremity right elbow. He had some neck pain. Multiple x-rays revealed no fractures. Chest x-ray showed no acute pulmonary process. EKG shows normal sinus rhythm. Initial hemoglobin 14.0. White count 11.8. Creatinine 1.09. He is seen in consultation in the intensive care unit. Awake and alert in no acute distress. Hemodynamically stable. Not requiring pressors at this point. He has been initiated on 0.9 normal saline at 75 ML's per hour and Protonix 40 mg IV twice a day. Review of Systems REVIEW OF SYSTEMS: CONSTITUTIONAL: Denies any recent significant weight loss or weight gain. EYES: Denies change in vision. EARS, NOSE, MOUTH, THROAT: Denies headaches, denies sore throat. CARDIOVASCULAR: Denies chest pain, palpitations or syncopal episodes. RESPIRATORY: Denies shortness of breath, cough, congestion or hemoptysis. GASTROINTESTINAL: Poor appetite this week due to nausea, positive epigastric pain GENITOURINARY: Denies hematuria, denies infections. MUSKULOSKELETAL: Denies pain, denies swelling. INTEGUMENTARY: Denies rash, denies eczema. NEUROLOGICAL: Denies recent memory loss, no recent seizure activity. PSYCHIATRIC: Denies anxiety, denies depression. HEMATOLOGIC/LYMPHATIC: Denies anemia, denies enlarged lymph nodes. Past Medical History Past Medical History: Diabetes Mellitus, GERD/Reflux, Hypertension, Neurologic Disorder, Osteoarthritis (OA), Sleep Apnea/CPAP/BIPAP, Thyroid Disorder Additional Past Medical History / Comment(s): PROLAPSED HEART VALVE, HEMOCHROMATOSIS, OCC. SWELLING IN FEET, FREQUENT CONSTIPATION, Parkinsons disease History of Any Multi-Drug Resistant Organisms: None Reported Past Surgical History: Orthopedic Surgery Additional Past Surgical History / Comment(s): RIGHT ROTATOR CUFF, LEFT SHOULDER ARTHROSCOPY Past Anesthesia/Blood Transfusion Reactions: No Reported Reaction Additional Past Anesthesia/Blood Transfusion Reaction / Comment(s): Pt has never received blood. Smoking Status: Never smoker - Past Family History Mother Family Medical History: Diabetes Mellitus Brother(s) Family Medical History: Blood Disorder Additional Family Medical History / Comment(s): hemachromatosis Father Family Medical History: No Reported History Additional Family Medical History / Comment(s): Father was healthy. Medications and Allergies Home Medications Medication Instructions Recorded Confirmed Type Aspirin 81 mg PO DAILY 01/10/14 02/21/19 History Folic Acid 1 mg PO DAILY 01/10/14 02/21/19 History Levothyroxine Sodium [Synthroid] 100 mcg PO DAILY 01/10/14 02/21/19 History Lisinopril [Zestril] 10 mg PO DAILY 01/10/14 02/21/19 History Metoprolol Succinate [Toprol XL] 25 mg PO DAILY 01/10/14 02/21/19 History Carbidopa-Levodopa 25-100 mg 1 tab PO AC-TID 07/20/16 02/21/19 History [Sinemet 25-100 mg] Fexofenadine HCl [Dori Allergy] 180 mg PO DAILY PRN 07/20/16 02/21/19 History Insulin Lispro [humaLOG Kwikpen] 15 unit SQ AC-TID 07/20/16 02/21/19 History Venlafaxine HCl [Effexor XR] 150 mg PO DAILY 07/20/16 02/21/19 History Vit C/E/Zn/Coppr/Lutein/Zeaxan 1 cap PO BID 07/20/16 02/21/19 History [Preservision Areds 2 Softgel] Insulin Degludec [Tresiba 32 unit SQ HS 03/08/18 02/21/19 History Flextouch U-100] Magnesium Oxide 400 mg PO DAILY 03/08/18 02/21/19 History Cyanocobalamin [Vitamin B-12] 500 mcg PO BID 02/19/19 02/21/19 History Donepezil HCl [Aricept] 10 mg PO DAILY 02/19/19 02/21/19 History Venlafaxine HCl ER [Effexor Xr] 75 mg PO DAILY 02/19/19 02/21/19 History Allergies Allergy/AdvReac Type Severity Reaction Status Date / Time No Known Allergies Allergy Verified 02/21/19 09:03 Physical Exam Vitals: Vital Signs Temp Pulse Resp BP Pulse Ox 02/21/19 14:00 73 19 141/74 95 02/21/19 13:45 14 02/21/19 13:30 98.3 F 84 14 166/100 96 02/21/19 12:40 80 18 165/92 100 02/21/19 10:51 69 18 154/93 100 02/21/19 08:34 98.2 F 86 18 121/82 99 Intake and Output 02/21/19 02/21/19 02/21/19 06:59 14:59 22:59 Intake Total 75 Output Total 100 Balance -25 Intake: IV 75 Sodium Chloride 0.9% 1, 75 000 ml @ 75 mls/hr IV . [id number] [facility] Rx#:[id number] Output: Urine 100 Other: Weight 103.8 kg GENERAL EXAM: Alert, comfortable in no apparent distress. On room air. HEAD: Normocephalic. EYES: Normal reaction of pupils, equal size. NOSE: Clear with pink turbinates. THROAT: No erythema or exudates. NECK: No masses, no JVD. CHEST: No chest wall deformity. LUNGS: Equal air entry with no crackles, wheeze, rhonchi or dullness. CVS: S1 and S2 normal with no audible murmur, regular rhythm. ABDOMEN: No hepatosplenomegaly, normal bowel sounds, no guarding or rigidity. SPINE: No scoliosis or deformity SKIN: No rashes CENTRAL NERVOUS SYSTEM: Parkinson's, tremors, tone is normal in all 4 extremities. EXTREMITIES: Dressings to abrasions from fall. Tremors. There is no peripheral edema. No clubbing, no cyanosis. Peripheral pulses are intact. Results - Laboratory Findings CBC and BMP: 02/21/19 08:37 02/21/19 08:37 PT/INR, D-dimer PT 11.0 sec (9.0-12.0) 02/21/19 08:37 INR 1.0 (<1.2) 02/21/19 08:37 Abnormal lab findings: Abnormal Labs 02/21/19 02/21/19 02/21/19 08:37 08:37 09:41 WBC 11.8 H Neutrophils # 9.4 H Sodium 136 L BUN 36 H Glucose 188 H POC Glucose (mg/dL) Total Protein 5.7 L Albumin 3.2 L Urine Protein 1+ H Urine Glucose (UA) Trace H Urine Ketones 1+ H Urine Blood Trace H Hyaline Casts 12 H Urine Mucus Rare H 02/21/19 13:09 WBC Neutrophils # Sodium BUN Glucose POC Glucose (mg/dL) 165 H Total Protein Albumin Urine Protein Urine Glucose (UA) Urine Ketones Urine Blood Hyaline Casts Urine Mucus - Diagnostic Findings Chest x-ray: image reviewed Assessment and Plan Assessment: Impression: #1 Gastrointestinal bleeding with large amount of dark lea stool. Last EGD March 2018. #2 Decreased appetite and nausea with dehydration seen in the ER 2 days ago on 02/19/2019. #3 Parkinson's disease. #4 History of anxiety/depression. #5 Diabetes mellitus. #6 Hypertension. #7 Hypothyroidism. #8 Gastroesophageal reflux disease. Plan: The patient was seen and evaluated by Dr. Kamara. Chest x-ray and labs reviewed. He is currently stable from the critical care standpoint. Continue to monitor hemoglobins. Watch for recurrent GI bleed. GI consult. We will continue to follow and make further recommendations based on his clinical status. I, the cosigning physician, performed a history & physical examination of the patient. Lungs sounds are clear. Maintaining good O2 saturations in the 90s on room air. I discussed the assessment and plan of care with my nurse practitioner, Joseline Calvillo. I attest to the above note as dictated by her. Time with Patient: Greater than 30
[2019-02-21] MEDS: ACETAMINOPHEN TAB 325 MG TAB PO PRN ×2 (15:48→21:07)
[2019-02-21 17:00] LABS: Glucose,Whole Blood 163 mg/dL (75-99)
[2019-02-21] MEDS: INSULIN ASPART (NovoLOG) 100 UNIT/ML VIAL SQ SCH ×2 (17:17→21:06)
--- NOTE | 2019-02-21 18:10 | P.HPIM ---
History of Present Illness H&P Date: 02/21/19 Chief Complaint: Acute gastrointestinal bleed, acute blood loss anemia, syncope, Parkinson d 78-year-old male one of Dr. Cruz's patient with past medical history of Parkinson disease, diabetes, hypertension, obstructive sleep apnea and hypothyroidism who reported that he had syncopal episode when he went to the bathroom felt very fainted lightheaded and he passed out his found him on the ground had the very large bloody bowel movement the same time with complete blood according to her after he was complaining of mild abdominal discomfort. Patient was in the emergency room 2 days earlier with abdominal pain and no major finding at the time. His hemoglobin still elevated patient is an active gastrointestinal bleed. He had previous history of GI bleed in 2016 was hospitalized and had both scope done by Dr. Le at the time. Patient will be admitted to the ICU keep doing CBC every few hours to his clearance stable hemodynamically and might be scheduled for an EGD tomorrow morning if his stable. Review of Systems CONSTITUTIONAL: Well-developed no acute respiratory distress. Had Parkinson's disease. Stiff expression. EYES: No icterus sclerae, no conjunctivitis. EARS, NOSE, MOUTH, THROAT, and FACE: No sore throat, lymphadenopathy, carotid bruits or deformity. RESPIRATORY: Mild shortness of breath cough no wheezes. CARDIOVASCULAR: Positive PND orthopnea no angina. GASTROINTESTINAL: Positive abdominal pain with nausea no vomiting positive diarrhea with bloody stool with no hematemesis. GENITOURINARY: Negative for Hematuria or UTI, no kidney stones. INTEGUMENT/BREAST: Negative for any muscular injury with mild osteoarthritis.. HEMATOLOGIC/LYMPHATIC: Negative for bleed or purpura. MUSCULOSKELTAL: Negative for Myalgia or arthralgia. NEURLOGICAL: No LOC, Sz or syncope, blurred vision dizziness or abnormality.. BEHAVIORAL/PSYCH: Negative. ENDOCRINE: Negative. Past Medical History Past Medical History: Diabetes Mellitus, GERD/Reflux, Hypertension, Neurologic Disorder, Osteoarthritis (OA), Sleep Apnea/CPAP/BIPAP, Thyroid Disorder Additional Past Medical History / Comment(s): PROLAPSED HEART VALVE, HEMOCHROMATOSIS, OCC. SWELLING IN FEET, FREQUENT CONSTIPATION, Parkinsons disease History of Any Multi-Drug Resistant Organisms: None Reported Past Surgical History: Orthopedic Surgery Additional Past Surgical History / Comment(s): RIGHT ROTATOR CUFF, LEFT SHOULDER ARTHROSCOPY Past Anesthesia/Blood Transfusion Reactions: No Reported Reaction Past Psychological History: Anxiety, Depression Smoking Status: Never smoker Past Alcohol Use History: Rare Past Drug Use History: None Reported - Past Family History Mother Family Medical History: Diabetes Mellitus Brother(s) Family Medical History: Blood Disorder Additional Family Medical History / Comment(s): hemachromatosis Father Family Medical History: No Reported History Additional Family Medical History / Comment(s): Father was healthy. Medications and Allergies Home Medications Medication Instructions Recorded Confirmed Type Aspirin 81 mg PO DAILY 01/10/14 02/21/19 History Folic Acid 1 mg PO DAILY 01/10/14 02/21/19 History Levothyroxine Sodium [Synthroid] 100 mcg PO DAILY 01/10/14 02/21/19 History Lisinopril [Zestril] 10 mg PO DAILY 01/10/14 02/21/19 History Metoprolol Succinate [Toprol XL] 25 mg PO DAILY 01/10/14 02/21/19 History Carbidopa-Levodopa 25-100 mg 1 tab PO AC-TID 07/20/16 02/21/19 History [Sinemet 25-100 mg] Fexofenadine HCl [Dori Allergy] 180 mg PO DAILY PRN 07/20/16 02/21/19 History Insulin Lispro [humaLOG Kwikpen] 15 unit SQ AC-TID 07/20/16 02/21/19 History Venlafaxine HCl [Effexor XR] 150 mg PO DAILY 07/20/16 02/21/19 History Vit C/E/Zn/Coppr/Lutein/Zeaxan 1 cap PO BID 07/20/16 02/21/19 History [Preservision Areds 2 Softgel] Insulin Degludec [Tresiba 32 unit SQ HS 03/08/18 02/21/19 History Flextouch U-100] Magnesium Oxide 400 mg PO DAILY 03/08/18 02/21/19 History Cyanocobalamin [Vitamin B-12] 500 mcg PO BID 02/19/19 02/21/19 History Donepezil HCl [Aricept] 10 mg PO DAILY 02/19/19 02/21/19 History Venlafaxine HCl ER [Effexor Xr] 75 mg PO DAILY 02/19/19 02/21/19 History Allergies Allergy/AdvReac Type Severity Reaction Status Date / Time No Known Allergies Allergy Verified 02/21/19 09:03 Physical Exam Vitals: Vital Signs Temp Pulse Resp BP Pulse Ox 02/21/19 10:51 69 18 154/93 100 02/21/19 08:34 98.2 F 86 18 121/82 99 Intake and Output 02/20/19 02/21/19 02/21/19 22:59 06:59 14:59 Other: Weight 103.056 kg General Appearance: Alert, cooperative, no distress, appears stated age. Overweight Neck HEENT: Supple, no lymphadenopathy, no thyroid enlargement, no carotid bruits. Lungs: Clear to auscultation without crackles or wheezes no rhonchi, no deformity. Chest Wall: Decrease expansion with deep inspiration no tenderness and no deformity was found on exam, no costochondral pain or discomfort. Heart: Regular rate and rhythm, S1, S2, positive S3 no JVD normal, no murmur, rub or gallop. Back: Symmetric, no curvature, ROM normal, no CVA tenderness. Abdomen: Soft positive bowel sound no organomegaly slight discomfort in the midepigastric area, Extremities: Extremities normal, atraumatic, no cyanosis or edema. Pulses: 2+ and symmetric. Skin: Skin color, texture, tugor normal, no rashes or lesions. Neurologic: Alert oriented x3 cranial nerves II through XII intact, no motor deficit, positive normal balance and gait with mild resting tremor typical for Parkinson. Results CBC & Chem 7: 02/21/19 08:37 02/21/19 08:37 Labs: Abnormal Lab Results - Last 24 Hours (Table) 02/21/19 02/21/19 02/21/19 Range/Units 08:37 08:37 09:41 WBC 11.8 H (3.8-10.6) k/uL Neutrophils # 9.4 H (1.3-7.7) k/uL Sodium 136 L (137-145) mmol/L BUN 36 H (9-20) mg/dL Glucose 188 H (74-99) mg/dL Total Protein 5.7 L (6.3-8.2) g/dL Albumin 3.2 L (3.5-5.0) g/dL Urine Protein 1+ H (Negative) Urine Glucose (UA) Trace H (Negative) Urine Ketones 1+ H (Negative) Urine Blood Trace H (Negative) Hyaline Casts 12 H (0-2) /lpf Urine Mucus Rare H (None) /hpf Assessment and Plan Plan: 1 acute gastrointestinal bleed: Most likely from bleeding ulcer, the possibility of acute ischemic colitis or colitis in general still there, patient will have CBC every 6-8 hours we will admit to the ICU transfuse if he kept having large bloody bowel movement, will consult GI and possible need for EGD if his stable by tomorrow. 2 syncopal episode: Most likely from the severity of the GI bleed as causing the blood pressure to be slightly bit low with low volume, continue fluid resuscitation no need for blood transfusion unless hemoglobin dropped below at least 80 g. Continue current treatment management for now. 3 recent fall, no injury at this point mild bruise on the right leg continue topical care. 4 type 2 diabetes on insulin: Patient has been on to Trisiba 32 unit daily along with Humalog 15 units before meals meals continue Accu-Chek sliding scales coverage. 5. Hypertension: Continue patient on lisinopril 10 mg a day along with metoprolol XL 25 mg daily. 6 Parkinson disease: Patient is on carbidopa levodopa resume medication for now. 7 Alzheimer disease: Patient is on donepezil 10 mg daily. 8 chronic depression: Patient is on Effexor or ER total of 225 mg daily. 9 hypothyroidism: Continue patient on levothyroxine 100 g daily. 10 GI prophylaxis: Patient will be on pantoprazole IV. 11 DVT prophylaxis: Continue knee-high THEA hose and Venodyne boots for now with early mobilization. CODE STATUS: Full code. Admit patient to inpatient status for more than 2 nights.
[2019-02-21 18:12] LABS: HCT 36.4 % (39.0-53.0); HGB 12.9 gm/dL (13.0-17.5); MCH 30.8 pg (25.0-35.0); MCHC 35.5 g/dL (31.0-37.0); MCV 86.7 fL (80.0-100.0); Mean Platelet Volume 7.5; Platelet Count 220 k/uL (150-450); RDW 13.2 % (11.5-15.5); WBC 12.5 k/uL (3.8-10.6)
[2019-02-21] MEDS ORDERED: LORATADINE 10 MG TAB PO PRN (18:50)
[2019-02-21 21:00] LABS: Glucose,Whole Blood 175 mg/dL (75-99)
[2019-02-21] MEDS: CYANOCOBALAMIN 500 MCG TAB PO SCH (21:07)
[2019-02-21] MEDS: INSULIN DETEMIR (LEVEMIR) 100 UNIT/ML SYR SQ SCH (21:07)
[2019-02-21] MEDS: PANTOPRAZOLE 40 MG/10 ML VIAL IV SCH (21:07)
[2019-02-21] MEDS ORDERED: METOPROLOL TARTRATE 12.5 MG TAB PO STA (22:06)
[2019-02-21] MEDS ORDERED: hydrALAZINE HCL 20 MG/ML 1 ML VIAL IVP PRN (22:06)
[2019-02-22] MEDS: SODIUM CHLORIDE 0.9% 1,000 ML IV SCH ×2 (01:00→18:40)
[2019-02-22 05:29] LABS: Basophils # (A) 0.1 k/uL (0-0.2); Basophils % (A) 1 %; Eosinophils # (A) 0.1 k/uL (0-0.7); Eosinophils % (A) 1 %; HCT 36.8 % (39.0-53.0); HGB 12.5 gm/dL (13.0-17.5); Lymphocytes % (A) 19 %; MCH 29.5 pg (25.0-35.0); MCHC 34.1 g/dL (31.0-37.0); MCV 86.7 fL (80.0-100.0); Mean Platelet Volume 7.3; Monocytes # (A) 0.7 k/uL (0-1.0); Monocytes % (A) 7 %; Neutrophils # (A) 7.6 k/uL (1.3-7.7); Neutrophils % (A) 72 %; Platelet Count 219 k/uL (150-450); RBC 4.25 m/uL (4.30-5.90); RDW 13.1 % (11.5-15.5); WBC 10.6 k/uL (3.8-10.6)
[2019-02-22 05:36] LABS: ALT 29 U/L (21-72); AST 31 U/L (17-59); African American GFR (CKD) >90 (>60 ml/min/1.73 sqM); Alkaline Phosphatase 55 U/L (38-126); Anion Gap 4 mmol/L; Blood Urea Nitrogen 24 mg/dL (9-20); Calcium 8.1 mg/dL (8.4-10.2); Carbon Dioxide 30 mmol/L (22-30); Chloride 104 mmol/L (98-107); Glucose 82 mg/dL (74-99); Potassium 3.8 mmol/L (3.5-5.1); Sodium 138 mmol/L (137-145); Total Bilirubin 0.7 mg/dL (0.2-1.3); Total Protein 5.4 g/dL (6.3-8.2)
[2019-02-22] MEDS ORDERED: Potassium Replacement Protocol 1 EACH MISC MISCELLANE PRN (05:50)
[2019-02-22] MEDS ORDERED: POTASSIUM CHLORIDE ER 20 MEQ TAB.ER PO SCH (06:00)
[2019-02-22] MEDS: INSULIN ASPART (NovoLOG) 100 UNIT/ML VIAL SQ SCH ×7 (07:01→21:39)
[2019-02-22 07:03] LABS: Glucose,Whole Blood 98 mg/dL (75-99)
[2019-02-22] MEDS: LEVOTHYROXINE 100 MCG TAB PO SCH (07:07)
[2019-02-22] MEDS: CARBIDOPA-LEVODOPA 25-100 MG 1 EACH TAB PO SCH ×3 (07:07→18:40)
[2019-02-22] MEDS: CYANOCOBALAMIN 500 MCG TAB PO SCH ×2 (08:44→21:40)
[2019-02-22] MEDS: DONEPEZIL 10 MG TAB PO SCH (08:45)
[2019-02-22] MEDS: PANTOPRAZOLE 40 MG/10 ML VIAL IV SCH ×2 (08:45→21:39)
[2019-02-22] MEDS: LISINOPRIL 10 MG TAB PO SCH (08:45)
[2019-02-22] MEDS: MAGNESIUM OXIDE 400 MG TAB PO SCH (08:45)
[2019-02-22] MEDS: METOPROLOL SUCCINATE (ER) 25 MG TAB.ER.24H PO SCH (08:45)
[2019-02-22] MEDS: FOLIC ACID 1 MG TAB PO SCH (08:45)
[2019-02-22] MEDS: VENLAFAXINE HCL ER 150 MG CAP PO SCH (08:46)
[2019-02-22] MEDS: VENLAFAXINE HCL ER 75 MG CAP PO SCH (08:46)
--- NOTE | 2019-02-22 11:43 | P.PN ---
Subjective Progress Note Date: 02/22/19 78-year-old male one of Dr. Cruz's patient with past medical history of Parkinson disease, diabetes, hypertension, obstructive sleep apnea and hypothyroidism who reported that he had syncopal episode when he went to the bathroom felt very fainted lightheaded and he passed out his found him on the ground had the very large bloody bowel movement the same time with complete blood according to her after he was complaining of mild abdominal discomfort. Patient was in the emergency room 2 days earlier with abdominal pain and no major finding at the time. His hemoglobin still elevated patient is an active gastrointestinal bleed. He had previous history of GI bleed in 2016 was hospitalized and had both scope done by Dr. Le at the time. Patient will be admitted to the ICU keep doing CBC every few hours to his clearance stable hemodynamically and might be scheduled for an EGD tomorrow morning if his stable. 02/22 patient examined bedside continue to endorse nausea and [place] color stool today. Vitals are stable with a temp of 90 7.9R respiratory rate of 17 pulse 65 blood pressure 171/86. Not currently nothing by mouth patient did have breakfast this morning with clear liquid diet. Gastric evaluation pending continue patient to be nothing by mouth. Continue lisinopril and metoprolol for blood pressure control. 2 hydralazine 10 mg every 6 hours when necessary for systolic more than 160 Review of systems Constitutional: Denies chills, Denies fever, Denies lethargy, Denies malaise, Denies poor appetite, Denies weakness, Denies weight loss Eyes: denies decreased vision, denies diplopia, denies discharge, denies pain Ears: deny: decreased hearing Ears, nose, mouth and throat: Denies dental pain, Denies headache, Denies nasal discharge, Denies nose pain Cardiovascular: Denies chest pain, Denies decreased exercise tolerance, Denies edema, Denies high blood pressure, Denies irregular heart beat, Denies palpitations, Denies paroxysmal nocturnal dyspnea, Denies rapid heart beat, Denies shortness of breath Respiratory: Denies congestion, Denies cough, Denies cough with sputum, Denies dyspnea, Denies home oxygen, Denies wheezing Gastrointestinal: Positive abdominal pain right lower abdominal with red color stool,, Denies coffee ground emesis, Denies early satiety, Denies excessive gas, Denies heartburn, Denies hematemesis, Denies hematochezia, Denies loss of appetite, positive for nausea, Denies vomiting Genitourinary: Denies dysuria, Denies flank pain, Denies kidney stones, Denies menorrhagia, Denies urgency, Denies urinary frequency Objective - Vital Signs Vital signs: Vital Signs Temp 97.9 F 02/22/19 08:00 Pulse 65 02/22/19 10:00 Resp 17 02/22/19 10:00 BP 171/86 02/22/19 10:00 Pulse Ox 100 02/22/19 10:00 Intake & Output 02/21/19 02/22/19 02/22/19 18:59 06:59 18:59 Intake Total 675 900 300 Output Total 400 1325 150 Balance 275 -425 150 Weight 103.8 kg 102.8 kg Intake: IV 375 900 300 Sodium Chloride 0.9% 1, 375 900 300 000 ml @ 75 mls/hr IV . [id number] [facility] Rx#:[id number] Oral 300 Output: Urine 400 1325 150 Other: # Voids 1 # Bowel Movements 1 - Exam - Constitutional General appearance: cooperative, no acute distress, obese - EENT Eyes: anicteric sclerae, PERRLA, normal appearance ENT: hearing grossly normal - Neck Neck: no lymphadenopathy, normal ROM, no other, no rigidity, no stridor, no thyromegaly - Respiratory Respiratory: bilateral: CTA, negative: diminished, dullness, rales, rhonchi - Cardiovascular Rhythm: regular Heart sounds: normal: S1, S2 Abnormal Heart Sounds: no systolic murmur, no diastolic murmur, no rub, no S3 Gallop, no S4 Gallop, no click, no other - Gastrointestinal General gastrointestinal: normal bowel sounds, soft tender right lower quadrant - Integumentary Integumentary: no rash - Neurologic Neurologic: CNII-XII intact resting tremor present - Musculoskeletal Musculoskeletal: gait not assessed, strength equal bilaterally - Psychiatric Psychiatric: A&O x's 3, appropriate affect - Labs CBC & Chem 7: 02/22/19 05:09 02/22/19 05:09 Labs: Abnormal Lab Results - Last 24 Hours (Table) 02/21/19 02/21/19 02/21/19 Range/Units 13:09 16:58 18:02 WBC 12.5 H (3.8-10.6) k/uL RBC 4.20 L (4.30-5.90) m/uL Hgb 12.9 L (13.0-17.5) gm/dL Hct 36.4 L (39.0-53.0) % BUN (9-20) mg/dL POC Glucose (mg/dL) 165 H 163 H (75-99) mg/dL Calcium (8.4-10.2) mg/dL Total Protein (6.3-8.2) g/dL Albumin (3.5-5.0) g/dL 02/21/19 02/22/19 02/22/19 Range/Units 20:59 05:09 05:09 WBC (3.8-10.6) k/uL RBC 4.25 L (4.30-5.90) m/uL Hgb 12.5 L (13.0-17.5) gm/dL Hct 36.8 L (39.0-53.0) % BUN 24 H (9-20) mg/dL POC Glucose (mg/dL) 175 H (75-99) mg/dL Calcium 8.1 L (8.4-10.2) mg/dL Total Protein 5.4 L (6.3-8.2) g/dL Albumin 3.0 L (3.5-5.0) g/dL Assessment and Plan Plan: 1 acute gastrointestinal bleed: Most likely from bleeding ulcer, the possibility of acute ischemic colitis or colitis in general still there, patient will have CBC every 6-8 hours and be transferred to [facility] transfuse if he kept having large bloody bowel movement, GI evaluation pending for possible need for EGD 2 syncopal episode: Most likely from the severity of the GI bleed as causing the blood pressure to be slightly bit low with low volume, continue fluid resuscitation no need for blood transfusion unless hemoglobin dropped below at least 80 g. Continue current treatment management for now. 3 recent fall, no injury at this point mild bruise on the right leg continue topical care. 4 type 2 diabetes on insulin: Patient has been on to Trisiba 32 unit daily along with Humalog 15 units before meals meals continue Accu-Chek sliding scales coverage. 5. Hypertension: Continue patient on lisinopril 10 mg a day along with metoprolol XL 25 mg daily. Hydralazine 10 IV every 6 as needed for systolic more than 160 6 Parkinson disease: Patient is on carbidopa levodopa resume medication for now. 7 Alzheimer disease: Patient is on donepezil 10 mg daily. 8 chronic depression: Patient is on Effexor or ER total of 225 mg daily. 9 hypothyroidism: Continue patient on levothyroxine 100 g daily. 10 GI prophylaxis: Patient will be on pantoprazole IV twice a day. 11 DVT prophylaxis: Continue knee-high THEA hose and Venodyne boots for now with early mobilization. CODE STATUS: Full code.
[2019-02-22 12:40] LABS: Glucose,Whole Blood 139 mg/dL (75-99)
[2019-02-22 13:40] LABS: Glucose,Whole Blood 120 mg/dL (75-99)
--- NOTE | 2019-02-22 15:12 | P.PN ---
Subjective Progress Note Date: 02/22/19 Principal diagnosis: Acute GI bleeding This is a very pleasant 78-year-old gentleman who follows with Dr. Cruz as his primary care physician. He has a history of Parkinson's disease, depression, hypothyroidism, diabetes mellitus, hypertension, previous GI bleed. He had undergone EGD with biopsy in March 2018. There was a small sliding hiatal hernia with no obvious esophagitis or complicated reflux disease. There was gastritis and duodenitis with duodenal bulb ulcer not actively bleeding at that time. Biopsies were negative for malignancy. No pathology. Early this morning he was up in the bathroom and had a large amount of lea stool and a syncopal episode. His heard him fall. He was brought here by EMS for the same. He did sustain minor injuries to his right lower extremity right elbow. He had some neck pain. Multiple x-rays revealed no fractures. Chest x-ray showed no acute pulmonary process. EKG shows normal sinus rhythm. Initial hemoglobin 14.0. White count 11.8. Creatinine 1.09. He is seen in consultation in the intensive care unit. Awake and alert in no acute distress. Hemodynamically stable. Not requiring pressors at this point. He has been initiated on 0.9 normal saline at 75 ML's per hour and Protonix 40 mg IV twice a day. Patient was reevaluated today on 02/22/2019, had minimal amount of burgundy color stool earlier today. However the patient is stable hemodynamically, does not feel lightheaded, patient's hemoglobin is stable. Hemoglobin today is 12.5. Yet to be seen by gastroenterology. And uncertain whether the patient will need to have EGD at this point in the meantime I will go ahead and recommend that we keep him nothing by mouth just in case EGD will be scheduled to be done today. And considering the patient is hemodynamically stable, and no significant the bleeding is noted we can potentially transfer the patient out of the ICU to a monitor bed. Objective - Vital Signs Vital signs: Vital Signs Temp 97.9 F 02/22/19 08:00 Pulse 59 L 02/22/19 12:00 Resp 14 02/22/19 12:00 BP 159/84 02/22/19 12:00 Pulse Ox 97 02/22/19 12:00 Intake & Output 02/21/19 02/22/19 02/22/19 18:59 06:59 18:59 Intake Total 675 900 450 Output Total 400 1325 150 Balance 275 -425 300 Weight 103.8 kg 102.8 kg 102.8 kg Intake: IV 375 900 450 Sodium Chloride 0.9% 1, 375 900 450 000 ml @ 75 mls/hr IV . [id number] MORE Rx#:[id number] Oral 300 Output: Urine 400 1325 150 Other: # Voids 1 # Bowel Movements 1 - Exam GENERAL EXAM: Alert, comfortable in no apparent distress. On room air. HEAD: Normocephalic. EYES: Normal reaction of pupils, equal size. NOSE: Clear with pink turbinates. THROAT: No erythema or exudates. NECK: No masses, no JVD. CHEST: No chest wall deformity. LUNGS: Equal air entry with no crackles, wheeze, rhonchi or dullness. CVS: S1 and S2 normal with no audible murmur, regular rhythm. ABDOMEN: No hepatosplenomegaly, normal bowel sounds, no guarding or rigidity. SPINE: No scoliosis or deformity SKIN: No rashes CENTRAL NERVOUS SYSTEM: Parkinson's, tremors, tone is normal in all 4 extremities. EXTREMITIES: Dressings to abrasions from fall. Tremors. There is no peripheral edema. No clubbing, no cyanosis. Peripheral pulses are intact. - Labs CBC & Chem 7: 02/22/19 05:09 02/22/19 05:09 Labs: Abnormal Lab Results - Last 24 Hours (Table) 02/21/19 02/21/19 02/21/19 Range/Units 16:58 18:02 20:59 WBC 12.5 H (3.8-10.6) k/uL RBC 4.20 L (4.30-5.90) m/uL Hgb 12.9 L (13.0-17.5) gm/dL Hct 36.4 L (39.0-53.0) % BUN (9-20) mg/dL POC Glucose (mg/dL) 163 H 175 H (75-99) mg/dL Calcium (8.4-10.2) mg/dL Total Protein (6.3-8.2) g/dL Albumin (3.5-5.0) g/dL 06/21/19 06/21/19 06/21/19 Range/Units 05:09 05:09 12:38 WBC (3.8-10.6) k/uL RBC 4.25 L (4.30-5.90) m/uL Hgb 12.5 L (13.0-17.5) gm/dL Hct 36.8 L (39.0-53.0) % BUN 24 H (9-20) mg/dL POC Glucose (mg/dL) 139 H (75-99) mg/dL Calcium 8.1 L (8.4-10.2) mg/dL Total Protein 5.4 L (6.3-8.2) g/dL Albumin 3.0 L (3.5-5.0) g/dL 02/22/19 Range/Units 13:39 WBC (3.8-10.6) k/uL RBC (4.30-5.90) m/uL Hgb (13.0-17.5) gm/dL Hct (39.0-53.0) % BUN (9-20) mg/dL POC Glucose (mg/dL) 120 H (75-99) mg/dL Calcium (8.4-10.2) mg/dL Total Protein (6.3-8.2) g/dL Albumin (3.5-5.0) g/dL Assessment and Plan Assessment: Impression: 1 acute GI bleeding, exact source in nature is not clear, patient is yet to be seen by gastroenterology for further evaluation and possible EGD. 2 acute syncopal episode secondary to GI bleeding, could be vasovagal since the patient's hemoglobin did not drop significantly. 3 type 2 diabetes, on insulin 4 recent fall but no injury 5 history of hypertension 6 history of Parkinson's disease and Alzheimer's disease on treatment 7 hypothyroidism Recommendation: Continue present treatment plan continue Protonix, patient is back on his usual home meds, avoid any anticoagulation therapy, or any antiplatelet therapy for now, could be transferred out of the ICU sometime today after seen by gastroenterology. Will follow on when necessary basis once the patient is out of the ICU. Time with Patient: Less than 30
[2019-02-22 16:53] LABS: Glucose,Whole Blood 89 mg/dL (75-99)
[2019-02-22 20:38] LABS: Glucose,Whole Blood 187 mg/dL (75-99)
[2019-02-22] MEDS: INSULIN DETEMIR (LEVEMIR) 100 UNIT/ML SYR SQ SCH (21:50)
[2019-02-22 22:15] LABS: Basophils # (A) 0.1 k/uL (0-0.2); Basophils % (A) 1 %; Eosinophils # (A) 0.2 k/uL (0-0.7); Eosinophils % (A) 1 %; HCT 33.7 % (39.0-53.0); HGB 11.5 gm/dL (13.0-17.5); Lymphocytes # (A) 2.4 k/uL (1.0-4.8); Lymphocytes % (A) 21 %; MCH 29.6 pg (25.0-35.0); MCHC 34.1 g/dL (31.0-37.0); MCV 86.8 fL (80.0-100.0); Mean Platelet Volume 7.5; Monocytes # (A) 0.6 k/uL (0-1.0); Monocytes % (A) 6 %; Neutrophils # (A) 7.6 k/uL (1.3-7.7); Neutrophils % (A) 69 %; Platelet Count 217 k/uL (150-450); RBC 3.88 m/uL (4.30-5.90); WBC 11.1 k/uL (3.8-10.6)
--- NOTE | 2019-02-22 23:50 | P.CONS ---
History of Present Illness - Reason for Consult Consult date: 02/22/19 Blood per rectum Requesting physician: Wang Judge - Chief Complaint Blood per rectum - History of Present Illness The patient is a pleasant 78-year-old male with a medical history significant for Parkinson's disease, diabetes mellitus, hypertension, CAITLYN, hypothyroidism an d prior episodes of GI bleeding who presents to the hospital with complaints of blood per rectum and syncopal episode. History is been taken from the patient and his who is sitting bedside. The patient had been feeling unwell earlier in the week with abdominal discomfort and nausea, which was associated with decreased oral intake and the inability to drink. The patient was eventually brought to the hospital by EMS after having a syncopal episode in his bathroom. At that time he was found and a large pool of maroon-colored stool. The patient had his last colonoscopy in 01/2014 when diverticulosis and polyps were found and had an EGD for evaluation of upper GI bleed in 03/2018 where a hiatal hernia, gastritis and duodenitis were found but no definitive ulcer was noted. Since presenting to the hospital he is had 2 further maroon-colored stools. He denies any home NSAID use. He does report that an ulcer was found approximately 30 years ago. Hemoglobin was stable on presentation at 12.5 today from 12.9 previously with total bilirubin 0.7, alkaline phosphatase 31, AST 29 and ALT 55. Stool was positive for occult blood. On further questioning the patient also reports difficulty having bowel movements and constipation. Currently only on stool softeners at home. Review of Systems REVIEW OF SYSTEMS: CONSTITUTIONAL: Denies any fevers, chills, weight change or fatigue. CARDIOVASCULAR: Denies any chest pain, palpitations high or low blood pressures, but the patient did have syncopal episode prior to presentation. RESPIRATORY: Denies any shortness of breath, hemoptysis or cough. GENITOURINARY: No dysuria or hematuria. MUSCULOSKELETAL: No new weakness reported. SKIN: Denies any new rashes or lesions, jaundice or pallor. PSYCHIATRIC: Denies any depression or anxiety. NEUROLOGY: Denies headache, denies any new focal deficits, positive for parkinsonian tremor. EARS/NOSE/THROAT: No recent hearing change, congestion, nasal discharge or sore throat. EYES: No pain in eyes, discharge or change in vision. GASTROINTESTINAL: As per HPI. Past Medical History Past Medical History: Diabetes Mellitus, GERD/Reflux, Hypertension, Neurologic Disorder, Osteoarthritis (OA), Sleep Apnea/CPAP/BIPAP, Thyroid Disorder Additional Past Medical History / Comment(s): PROLAPSED HEART VALVE, HEMOCHROMATOSIS, OCC. SWELLING IN FEET, FREQUENT CONSTIPATION, Parkinsons disease History of Any Multi-Drug Resistant Organisms: None Reported Past Surgical History: Orthopedic Surgery Additional Past Surgical History / Comment(s): RIGHT ROTATOR CUFF, LEFT SHOULDER ARTHROSCOPY Past Anesthesia/Blood Transfusion Reactions: No Reported Reaction Additional Past Anesthesia/Blood Transfusion Reaction / Comm: Pt has never received blood. Past Psychological History: Anxiety, Depression Smoking Status: Never smoker Past Alcohol Use History: Rare Past Drug Use History: None Reported - Past Family History Mother Family Medical History: Diabetes Mellitus Brother(s) Family Medical History: Blood Disorder Additional Family Medical History / Comment(s): hemachromatosis Father Family Medical History: No Reported History Additional Family Medical History / Comment(s): Father was healthy. Medications and Allergies Home Medications Medication Instructions Recorded Confirmed Type Aspirin 81 mg PO DAILY 01/10/14 02/21/19 History Folic Acid 1 mg PO DAILY 01/10/14 02/21/19 History Levothyroxine Sodium [Synthroid] 100 mcg PO DAILY 01/10/14 02/21/19 History Lisinopril [Zestril] 10 mg PO DAILY 01/10/14 02/21/19 History Metoprolol Succinate [Toprol XL] 25 mg PO DAILY 01/10/14 02/21/19 History Carbidopa-Levodopa 25-100 mg 1 tab PO AC-TID 07/20/16 02/21/19 History [Sinemet 25-100 mg] Fexofenadine HCl [Dori Allergy] 180 mg PO DAILY PRN 07/20/16 02/21/19 History Insulin Lispro [humaLOG Kwikpen] 15 unit SQ AC-TID 07/20/16 02/21/19 History Venlafaxine HCl [Effexor XR] 150 mg PO DAILY 07/20/16 02/21/19 History Vit C/E/Zn/Coppr/Lutein/Zeaxan 1 cap PO BID 07/20/16 02/21/19 History [Preservision Areds 2 Softgel] Insulin Degludec [Tresiba 32 unit SQ HS 03/08/18 02/21/19 History Flextouch U-100] Magnesium Oxide 400 mg PO DAILY 03/08/18 02/21/19 History Cyanocobalamin [Vitamin B-12] 500 mcg PO BID 02/19/19 02/21/19 History Donepezil HCl [Aricept] 10 mg PO DAILY 02/19/19 02/21/19 History Venlafaxine HCl ER [Effexor Xr] 75 mg PO DAILY 02/19/19 02/21/19 History Allergies Allergy/AdvReac Type Severity Reaction Status Date / Time No Known Allergies Allergy Verified 02/21/19 09:03 Physical Exam Vitals: Vital Signs Temp Pulse Resp BP Pulse Ox 02/22/19 12:00 59 L 14 159/84 97 02/22/19 11:00 61 15 151/77 98 02/22/19 10:00 65 17 171/86 100 02/22/19 09:00 72 12 164/94 99 02/22/19 08:00 97.9 F 69 16 167/100 98 02/22/19 07:00 67 13 168/85 100 02/22/19 06:00 61 15 166/82 99 02/22/19 05:00 64 16 146/84 99 02/22/19 04:00 97.6 F 60 15 155/76 95 02/22/19 03:00 78 12 138/104 99 02/22/19 02:00 73 10 L 178/86 98 02/22/19 01:00 81 12 146/78 97 02/22/19 00:01 85 14 97 02/22/19 00:00 97.4 F L 86 13 158/87 97 02/21/19 23:00 69 12 157/67 100 02/21/19 22:00 70 17 174/108 99 02/21/19 21:00 72 17 170/81 98 02/21/19 20:46 98 02/21/19 20:00 98.4 F 78 5 L 167/77 98 02/21/19 19:30 82 12 99 02/21/19 19:00 87 11 L 167/77 100 02/21/19 18:00 73 20 170/88 97 02/21/19 17:30 76 20 170/88 98 02/21/19 17:00 70 14 169/94 98 02/21/19 16:00 98.2 F 67 18 169/84 99 02/21/19 15:00 66 24 181/84 99 02/21/19 14:00 73 19 141/74 95 02/21/19 13:30 98.3 F 84 14 166/100 96 Intake and Output 02/21/19 02/22/19 02/22/19 22:59 06:59 14:59 Intake Total 900 600 450 Output Total 850 775 150 Balance 50 -175 300 Intake: IV 600 600 450 Sodium Chloride 0.9% 1, 600 600 450 000 ml @ 75 mls/hr IV . [id number] MORE Rx#:[id number] Oral 300 Output: Urine 850 775 150 Other: # Voids 1 # Bowel Movements 1 Weight 102.8 kg On physical examination, patient appears comfortable in no apparent distress. HEAD: Normocephalic, atraumatic. EYES: No scleral icterus. No conjunctival injection. MOUTH: No lesions, tongue midline. NECK: Trachea midline, no gross abnormalities. CHEST: Clear to auscultation with no wheezing or rhonchi appreciated. HEART: Regular rate and rhythm. ABDOMEN: Soft, obese. Bowel sounds are positive. No organomegaly. No guarding or rigidity. EXTREMITIES: No pedal edema. SKIN: No rashes, no jaundice. NEUROLOGIC: Alert and oriented x3. Parkinsonian tremor noted. Results CBC & Chem 7: 02/22/19 22:03 02/22/19 05:09 Labs: Abnormal Lab Results - Last 24 Hours (Table) 02/21/19 02/21/19 02/21/19 Range/Units 13:09 16:58 18:02 WBC 12.5 H (3.8-10.6) k/uL RBC 4.20 L (4.30-5.90) m/uL Hgb 12.9 L (13.0-17.5) gm/dL Hct 36.4 L (39.0-53.0) % BUN (9-20) mg/dL POC Glucose (mg/dL) 165 H 163 H (75-99) mg/dL Calcium (8.4-10.2) mg/dL Total Protein (6.3-8.2) g/dL Albumin (3.5-5.0) g/dL 02/21/19 02/22/19 02/22/19 Range/Units 20:59 05:09 05:09 WBC (3.8-10.6) k/uL RBC 4.25 L (4.30-5.90) m/uL Hgb 12.5 L (13.0-17.5) gm/dL Hct 36.8 L (39.0-53.0) % BUN 24 H (9-20) mg/dL POC Glucose (mg/dL) 175 H (75-99) mg/dL Calcium 8.1 L (8.4-10.2) mg/dL Total Protein 5.4 L (6.3-8.2) g/dL Albumin 3.0 L (3.5-5.0) g/dL 02/22/19 Range/Units 12:38 WBC (3.8-10.6) k/uL RBC (4.30-5.90) m/uL Hgb (13.0-17.5) gm/dL Hct (39.0-53.0) % BUN (9-20) mg/dL POC Glucose (mg/dL) 139 H (75-99) mg/dL Calcium (8.4-10.2) mg/dL Total Protein (6.3-8.2) g/dL Albumin (3.5-5.0) g/dL Assessment and Plan (1) GI bleed Narrative/Plan: 78-year-old man presents to the hospital due to syncope after which she was found in a pool of maroon-colored stool. Hemoglobin has been stable at 12.5 from 12.9. He denies any NSAID use at home and has similar episodes of GI bleeding suspicious for an upper GI pathology in the past during which she was scoped in 03/2018 with findings of a hiatal hernia, gastritis and duodenitis. Unclear etiology, this may represent diverticular bleeding given his known hist ory of diverticulosis seen on colonoscopy in 2013, bleeding AVM, stercoral our center in the setting of constipation or other etiology. Current Visit: Yes Status: Acute Code(s): K92.2 - GASTROINTESTINAL HEMORRHAGE, UNSPECIFIED SNOMED Code(s): 63723652 (2) Constipation Current Visit: Yes Status: Acute Code(s): K59.00 - CONSTIPATION, UNSPECIFIED SNOMED Code(s): 41526250 (3) Diverticulosis Current Visit: Yes Status: Acute Code(s): K57.90 - DVRTCLOS OF INTEST, PART UNSP, W/O PERF OR ABSCESS W/O BLEED SNOMED Code(s): 289034129 Plan: Supportive care Nothing by mouth, okay for ice chips Advance diet tomorrow if symptoms continue to improve and hemodynamically stable Continue empiric Protonix therapy of upper GI bleed is felt to be less likely given the description of the patient's bowel movements and hemodynamic stability Patient will need to be started on a bowel regimen at discharge as he may be suffering from colonic ulceration in the setting of severe constipation Agree with cardiac evaluation in the setting of syncope No plans for endoscopic evaluation at this time, the patient continues to do well we will plan for outpatient colonoscopy however if further signs or symptoms develop or patient's hemoglobin fall precipitously we'll reevaluate for endoscopy prior to discharge Thank you for allowing us to participate in the care of the patient we will continue to follow
[2019-02-23 03:32] LABS: Basophils # (A) 0.1 k/uL (0-0.2); Basophils % (A) 1 %; Eosinophils # (A) 0.2 k/uL (0-0.7); Eosinophils % (A) 2 %; HCT 30.2 % (39.0-53.0); Lymphocytes # (A) 2.3 k/uL (1.0-4.8); Lymphocytes % (A) 22 %; MCH 31.5 pg (25.0-35.0); MCHC 36.3 g/dL (31.0-37.0); MCV 86.7 fL (80.0-100.0); Mean Platelet Volume 7.5; Monocytes # (A) 0.6 k/uL (0-1.0); Monocytes % (A) 6 %; Neutrophils # (A) 6.9 k/uL (1.3-7.7); Neutrophils % (A) 68 %; Platelet Count 196 k/uL (150-450); RBC 3.48 m/uL (4.30-5.90); RDW 13.7 % (11.5-15.5); WBC 10.3 k/uL (3.8-10.6)
[2019-02-23 03:43] LABS: ALT 20 U/L (21-72); AST 28 U/L (17-59); African American GFR (CKD) >90 (>60 ml/min/1.73 sqM); Albumin 2.6 g/dL (3.5-5.0); Alkaline Phosphatase 49 U/L (38-126); Anion Gap 6 mmol/L; Blood Urea Nitrogen 23 mg/dL (9-20); Calcium 7.6 mg/dL (8.4-10.2); Carbon Dioxide 26 mmol/L (22-30); Chloride 104 mmol/L (98-107); Glucose 179 mg/dL (74-99); Potassium 3.9 mmol/L (3.5-5.1); Sodium 136 mmol/L (137-145); Total Bilirubin 0.7 mg/dL (0.2-1.3); Total Protein 4.9 g/dL (6.3-8.2)
[2019-02-23] MEDS: SODIUM CHLORIDE 0.9% 1,000 ML IV SCH ×3 (04:03→21:26)
[2019-02-23] MEDS: ACETAMINOPHEN TAB 325 MG TAB PO PRN (04:04)
[2019-02-23] MEDS: INSULIN ASPART (NovoLOG) 100 UNIT/ML VIAL SQ SCH ×6 (04:52→23:39)
[2019-02-23] MEDS: LEVOTHYROXINE 100 MCG TAB PO SCH (06:54)
[2019-02-23] MEDS: CARBIDOPA-LEVODOPA 25-100 MG 1 EACH TAB PO SCH ×3 (06:54→17:22)
[2019-02-23 06:58] LABS: Glucose,Whole Blood 211 mg/dL (75-99)
[2019-02-23] MEDS: CYANOCOBALAMIN 500 MCG TAB PO SCH ×2 (09:01→21:26)
[2019-02-23] MEDS: PANTOPRAZOLE 40 MG/10 ML VIAL IV SCH ×2 (09:01→21:25)
[2019-02-23] MEDS: DONEPEZIL 10 MG TAB PO SCH (09:01)
[2019-02-23] MEDS: FOLIC ACID 1 MG TAB PO SCH (09:02)
[2019-02-23] MEDS: LISINOPRIL 10 MG TAB PO SCH (09:02)
[2019-02-23] MEDS: VENLAFAXINE HCL ER 75 MG CAP PO SCH (09:02)
[2019-02-23] MEDS: VENLAFAXINE HCL ER 150 MG CAP PO SCH (09:02)
[2019-02-23] MEDS: METOPROLOL SUCCINATE (ER) 25 MG TAB.ER.24H PO SCH (09:02)
[2019-02-23] MEDS: MAGNESIUM OXIDE 400 MG TAB PO SCH (09:02)
--- NOTE | 2019-02-23 11:10 | P.PN ---
Subjective Progress Note Date: 02/23/19 Principal diagnosis: Acute GI bleeding This is a very pleasant 78-year-old gentleman who follows with Dr. Cruz as his primary care physician. He has a history of Parkinson's disease, depression, hypothyroidism, diabetes mellitus, hypertension, previous GI bleed. He had undergone EGD with biopsy in March 2018. There was a small sliding hiatal hernia with no obvious esophagitis or complicated reflux disease. There was gastritis and duodenitis with duodenal bulb ulcer not actively bleeding at that time. Biopsies were negative for malignancy. No pathology. Early this morning he was up in the bathroom and had a large amount of lea stool and a syncopal episode. His heard him fall. He was brought here by EMS for the same. He did sustain minor injuries to his right lower extremity right elbow. He had some neck pain. Multiple x-rays revealed no fractures. Chest x-ray showed no acute pulmonary process. EKG shows normal sinus rhythm. Initial hemoglobin 14.0. White count 11.8. Creatinine 1.09. He is seen in consultation in the intensive care unit. Awake and alert in no acute distress. Hemodynamically stable. Not requiring pressors at this point. He has been initiated on 0.9 normal saline at 75 ML's per hour and Protonix 40 mg IV twice a day. Patient was reevaluated today on 02/22/2019, had minimal amount of burgundy color stool earlier today. However the patient is stable hemodynamically, does not feel lightheaded, patient's hemoglobin is stable. Hemoglobin today is 12.5. Yet to be seen by gastroenterology. And uncertain whether the patient will need to have EGD at this point in the meantime I will go ahead and recommend that we keep him nothing by mouth just in case EGD will be scheduled to be done today. And considering the patient is hemodynamically stable, and no significant the bleeding is noted we can potentially transfer the patient out of the ICU to a monitor bed. Reevaluated today on 02/23/2019, patient remains in the ICU, he was seen by gastroenterology yesterday, and basically recommended conservative measures. However the patient is having multiple episodes of burgundy colored stools over the last 24 hours, and his hemoglobin did drift down to 11.0 from 11.5 yesterday. His initial hemoglobin on admission was 14.0. Clearly the patient is actively bleeding/oozing and there has been a steady decline in his hemoglobin since admission. Not to mention the patient has clinically obvious GI bleeding with burgundy stools almost on a daily basis. Hence I have instructed the nurses to contact gastroenterology again, and consider endoscopy on this patient. Objective - Vital Signs Vital signs: Vital Signs Temp 98.7 F 02/23/19 04:00 Pulse 60 02/23/19 07:00 Resp 5 L 02/23/19 07:00 BP 109/58 02/23/19 07:00 Pulse Ox 99 02/23/19 07:00 Intake & Output 02/22/19 02/23/19 02/23/19 18:59 06:59 18:59 Intake Total 975 1155 Output Total 150 200 Balance 825 955 Weight 102.8 kg 102.3 kg Intake: IV 975 675 Sodium Chloride 0.9% 1, 975 675 000 ml @ 75 mls/hr IV . [id number] MORE Rx#:[id number] Oral 480 Output: Urine 150 200 Other: Voiding Method Urinal Urinal # Voids 1 1 # Bowel Movements 5 - Exam GENERAL EXAM: Alert, comfortable in no apparent distress. On room air. HEAD: Normocephalic. EYES: Normal reaction of pupils, equal size. NOSE: Clear with pink turbinates. THROAT: No erythema or exudates. NECK: No masses, no JVD. CHEST: No chest wall deformity. LUNGS: Equal air entry with no crackles, wheeze, rhonchi or dullness. CVS: S1 and S2 normal with no audible murmur, regular rhythm. ABDOMEN: No hepatosplenomegaly, normal bowel sounds, no guarding or rigidity. SPINE: No scoliosis or deformity SKIN: No rashes CENTRAL NERVOUS SYSTEM: Parkinson's, tremors, tone is normal in all 4 extremities. EXTREMITIES: Dressings to abrasions from fall. Tremors. There is no peripheral edema. No clubbing, no cyanosis. Peripheral pulses are intact. - Labs CBC & Chem 7: 02/23/19 03:22 02/23/19 03:22 Labs: Abnormal Lab Results - Last 24 Hours (Table) 02/22/19 02/22/19 02/22/19 Range/Units 12:38 13:39 20:37 WBC (3.8-10.6) k/uL RBC (4.30-5.90) m/uL Hgb (13.0-17.5) gm/dL Hct (39.0-53.0) % Sodium (137-145) mmol/L BUN (9-20) mg/dL Glucose (74-99) mg/dL POC Glucose (mg/dL) 139 H 120 H 187 H (75-99) mg/dL Calcium (8.4-10.2) mg/dL ALT (21-72) U/L Total Protein (6.3-8.2) g/dL Albumin (3.5-5.0) g/dL 02/22/19 02/23/19 02/23/19 Range/Units 22:03 03:22 03:22 WBC 11.1 H (3.8-10.6) k/uL RBC 3.88 L 3.48 L (4.30-5.90) m/uL Hgb 11.5 L 11.0 L (13.0-17.5) gm/dL Hct 33.7 L 30.2 L (39.0-53.0) % Sodium 136 L (137-145) mmol/L BUN 23 H (9-20) mg/dL Glucose 179 H (74-99) mg/dL POC Glucose (mg/dL) (75-99) mg/dL Calcium 7.6 L (8.4-10.2) mg/dL ALT 20 L (21-72) U/L Total Protein 4.9 L (6.3-8.2) g/dL Albumin 2.6 L (3.5-5.0) g/dL 02/23/19 Range/Units 06:57 WBC (3.8-10.6) k/uL RBC (4.30-5.90) m/uL Hgb (13.0-17.5) gm/dL Hct (39.0-53.0) % Sodium (137-145) mmol/L BUN (9-20) mg/dL Glucose (74-99) mg/dL POC Glucose (mg/dL) 211 H (75-99) mg/dL Calcium (8.4-10.2) mg/dL ALT (21-72) U/L Total Protein (6.3-8.2) g/dL Albumin (3.5-5.0) g/dL Assessment and Plan Assessment: Impression: 1 acute GI bleeding, exact source in nature is not clear, patient is yet to be seen by gastroenterology for further evaluation and possible EGD. And/or colonoscopy 2 acute syncopal episode secondary to GI bleeding, could be vasovagal since the patient's hemoglobin did not drop significantly. 3 type 2 diabetes, on insulin 4 recent fall but no injury 5 history of hypertension 6 history of Parkinson's disease and Alzheimer's disease on treatment 7 hypothyroidism Recommendation: Continue present treatment plan continue Protonix, instructed the nurses to keep the patient in the ICU for now, contact gastroenterology again to reevaluate, and possibly consider for endoscopy. No need for blood transfusion at this point, but the patient needs to be closely monitored since he is clearly experiencing active slow bleeding. Will follow. Time with Patient: Less than 30
[2019-02-23 11:24] LABS: Basophils # (A) 0.1 k/uL (0-0.2); Basophils % (A) 1 %; Eosinophils # (A) 0.2 k/uL (0-0.7); Eosinophils % (A) 2 %; HCT 29.4 % (39.0-53.0); HGB 10.3 gm/dL (13.0-17.5); Lymphocytes % (A) 21 %; MCH 30.8 pg (25.0-35.0); MCHC 34.9 g/dL (31.0-37.0); MCV 88.1 fL (80.0-100.0); Mean Platelet Volume 7.8; Monocytes # (A) 0.6 k/uL (0-1.0); Monocytes % (A) 6 %; Neutrophils # (A) 6.5 k/uL (1.3-7.7); Neutrophils % (A) 69 %; Platelet Count 196 k/uL (150-450); RBC 3.34 m/uL (4.30-5.90); RDW 14.9 % (11.5-15.5); WBC 9.5 k/uL (3.8-10.6)
--- NOTE | 2019-02-23 11:50 | P.PN ---
Subjective Progress Note Date: 02/23/19 78-year-old male one of Dr. Cruz's patient with past medical history of Parkinson disease, diabetes, hypertension, obstructive sleep apnea and hypothyroidism who reported that he had syncopal episode when he went to the bathroom felt very fainted lightheaded and he passed out his found him on the ground had the very large bloody bowel movement the same time with complete blood according to her after he was complaining of mild abdominal discomfort. Patient was in the emergency room 2 days earlier with abdominal pain and no major finding at the time. His hemoglobin still elevated patient is an active gastrointestinal bleed. He had previous history of GI bleed in 2016 was hospitalized and had both scope done by Dr. Le at the time. Patient will be admitted to the ICU keep doing CBC every few hours to his clearance stable hemodynamically and might be scheduled for an EGD tomorrow morning if his stable. 02/22 patient examined bedside continue to endorse nausea and hadburgundi color stool today. Vitals are stable with a temp of 90 7.9R respiratory rate of 17 pulse 65 blood pressure 171/86. Not currently nothing by mouth patient did have breakfast this morning with clear liquid diet. Gastric evaluation pending continue patient to be nothing by mouth. Continue lisinopril and metoprolol for blood pressure control. 2 hydralazine 10 mg every 6 hours when necessary for systolic more than 160 02/23: Patient was examined at the bedside. is at the bedside. Patient continues to complain of nausea and tenderness to the epigastric area. Patient continues to have maroon colored stool. Denies any vomiting initial hemoglobin upon admission was 14.0 hemoglobin continues to drift today's hemoglobin 11.0. Patient continues to have maroon-colored stools throughout the evening. Patient was seen by GI, possible endoscopic evaluation was for both outpatient. Vital signs remained stable. Review of systems Constitutional: Denies chills, Denies fever, Denies lethargy, Denies malaise, Denies poor appetite, Denies weakness, Denies weight loss Eyes: denies decreased vision, denies diplopia, denies discharge, denies pain Ears: deny: decreased hearing Ears, nose, mouth and throat: Denies dental pain, Denies headache, Denies nasal discharge, Denies nose pain Cardiovascular: Denies chest pain, Denies decreased exercise tolerance, Denies edema, Denies high blood pressure, Denies irregular heart beat, Denies palpitations, Denies paroxysmal nocturnal dyspnea, Denies rapid heart beat, Denies shortness of breath Respiratory: Denies congestion, Denies cough, Denies cough with sputum, Denies dyspnea, Denies home oxygen, Denies wheezing Gastrointestinal: Positive abdominal pain right lower abdominal with red color stool,, Denies coffee ground emesis, Denies early satiety, Denies excessive gas, Denies heartburn, Denies hematemesis, Denies hematochezia, Denies loss of appetite, positive for nausea, Denies vomiting Genitourinary: Denies dysuria, Denies flank pain, Denies kidney stones, Denies menorrhagia, Denies urgency, Denies urinary frequency Objective - Vital Signs Vital signs: Vital Signs Temp 98.7 F 02/23/19 04:00 Pulse 60 02/23/19 07:00 Resp 5 L 02/23/19 07:00 BP 109/58 02/23/19 07:00 Pulse Ox 99 02/23/19 07:00 Intake & Output 02/22/19 02/23/19 02/23/19 18:59 06:59 18:59 Intake Total 975 1155 75 Output Total 150 200 Balance 825 955 75 Weight 102.8 kg 102.3 kg Intake: IV 975 675 75 Sodium Chloride 0.9% 1, 975 675 75 000 ml @ 75 mls/hr IV . [id number] [facility] Rx#:[id number] Oral 480 Output: Urine 150 200 Other: Voiding Method Urinal Urinal # Voids 1 1 # Bowel Movements 5 - Exam General Appearance: Alert, cooperative, no distress, appears stated age. Neck HEENT: Supple, no lymphadenopathy, no thyroid enlargement, no carotid bruits. Lungs: Clear to auscultation without crackles or wheezes no rhonchi, no deformity. Chest Wall: Chest wall normal expansion with deep inspiration no tenderness and no deformity was found on exam, no costochondral pain or discomfort. Heart: Regular rate and rhythm, S1, S2 normal, no murmur, rub or gallop. Back: Symmetric, no curvature, ROM normal, no CVA tenderness. Abdomen: Soft, epigastric tenderness, no rebound or rigidity, no hepatosplenomegaly. Extremities: Extremities normal, atraumatic, no cyanosis or edema. Pulses: 2+ and symmetric. Skin: Skin color, texture, tugor normal, no rashes or lesions. Neurologic: Alert oriented x3 cranial nerves II through XII intact, resting tremor noted no motor deficit, strength equal bilaterally - Labs CBC & Chem 7: 02/23/19 10:45 02/23/19 03:22 Labs: Abnormal Lab Results - Last 24 Hours (Table) 02/22/19 02/22/19 02/22/19 Range/Units 12:38 13:39 20:37 WBC (3.8-10.6) k/uL RBC (4.30-5.90) m/uL Hgb (13.0-17.5) gm/dL Hct (39.0-53.0) % Sodium (137-145) mmol/L BUN (9-20) mg/dL Glucose (74-99) mg/dL POC Glucose (mg/dL) 139 H 120 H 187 H (75-99) mg/dL Calcium (8.4-10.2) mg/dL ALT (21-72) U/L Total Protein (6.3-8.2) g/dL Albumin (3.5-5.0) g/dL 02/22/19 02/23/19 02/23/19 Range/Units 22:03 03:22 03:22 WBC 11.1 H (3.8-10.6) k/uL RBC 3.88 L 3.48 L (4.30-5.90) m/uL Hgb 11.5 L 11.0 L (13.0-17.5) gm/dL Hct 33.7 L 30.2 L (39.0-53.0) % Sodium 136 L (137-145) mmol/L BUN 23 H (9-20) mg/dL Glucose 179 H (74-99) mg/dL POC Glucose (mg/dL) (75-99) mg/dL Calcium 7.6 L (8.4-10.2) mg/dL ALT 20 L (21-72) U/L Total Protein 4.9 L (6.3-8.2) g/dL Albumin 2.6 L (3.5-5.0) g/dL 02/23/19 02/23/19 Range/Units 06:57 10:45 WBC (3.8-10.6) k/uL RBC 3.34 L (4.30-5.90) m/uL Hgb 10.3 L (13.0-17.5) gm/dL Hct 29.4 L (39.0-53.0) % Sodium (137-145) mmol/L BUN (9-20) mg/dL Glucose (74-99) mg/dL POC Glucose (mg/dL) 211 H (75-99) mg/dL Calcium (8.4-10.2) mg/dL ALT (21-72) U/L Total Protein (6.3-8.2) g/dL Albumin (3.5-5.0) g/dL Assessment and Plan Plan: 1. acute gastrointestinal bleed: GI recommendation conservative measures, we'll discuss with the GI for possible endoscopic exam while inpatient due to continuing decrease of hemoglobin and continued evidence of GI bleed with maroon-colored stools. 2. syncopal episode: Most likely from the severity of the GI bleed as causing the blood pressure to be slightly bit low with low volume, continue fluid resuscitation no need for blood transfusion unless hemoglobin dropped below at least 80 g. Continue current treatment management for now. 3. recent fall, no injury mild bruise on the right leg continue topical care. 4. type 2 diabetes on insulin: Patient has been on to Trisiba 32 unit daily along with Humalog 15 units before meals meals continue Accu-Chek sliding scales coverage. 5. Hypertension: Continue patient on lisinopril 10 mg a day along with metoprolol XL 25 mg daily. Hydralazine 10 IV every 6 as needed for systolic more than 160 6. Parkinson disease: Patient is on carbidopa levodopa resume medication for now. 7. Alzheimer disease: Patient is on donepezil 10 mg daily. 8. chronic depression: Patient is on Effexor or ER total of 225 mg daily. Discussed possible need for psychiatric consult an outpatient setting. 9. hypothyroidism: Continue patient on levothyroxine 100 g daily. 10. GI prophylaxis: Patient will be on pantoprazole IV twice a day. 11. DVT prophylaxis: Continue knee-high THEA hose and Venodyne boots for now with early mobilization. CODE STATUS: Full code. Impression and plan of care have been directed as dictated by the signing physician. Radha Peres nurse practitioner acting as scribe for signing physician.
[2019-02-23 12:08] LABS: Glucose,Whole Blood 147 mg/dL (75-99)
[2019-02-23 13:21] LABS: Hemoglobin A1C 7.5 % (4.0-6.0)
[2019-02-23] MEDS ORDERED: PEG 3350-NA SULF,BICARB,CL/KCL 4,000 ML BOTTLE PO ONE (13:49)
[2019-02-23 17:26] LABS: Glucose,Whole Blood 211 mg/dL (75-99)
--- NOTE | 2019-02-23 18:37 | P.PN ---
Subjective Progress Note Date: 02/23/19 Principal diagnosis: GI bleed, anemia of acute blood loss Patient is seen lying in bed. Initially when seen yesterday patient had reported darkening of bowel movements, however over the night and into today patient has had multiple episodes of maroon-colored stool. No abdominal pain reported. Objective - Vital Signs Vital signs: Vital Signs Temp 97.6 F 02/23/19 15:00 Pulse 57 L 02/23/19 15:00 Resp 12 02/23/19 15:00 BP 147/58 02/23/19 15:00 Pulse Ox 99 02/23/19 17:40 Intake & Output 02/22/19 02/23/19 02/23/19 18:59 06:59 18:59 Intake Total 975 1155 600 Output Total 150 200 402 Balance 825 955 198 Weight 102.8 kg 102.3 kg Intake: IV 975 675 600 Sodium Chloride 0.9% 1, 975 675 600 000 ml @ 75 mls/hr IV . [id number] [facility] Rx#:[id number] Oral 480 Output: Urine 150 200 400 Stool 2 Other: Voiding Method Urinal Urinal # Voids 1 1 1 # Bowel Movements 5 1 - Exam On physical examination, patient appears comfortable in no apparent distress. HEAD: Normocephalic, atraumatic. EYES: No scleral icterus. No conjunctival injection. MOUTH: No lesions, tongue midline. NECK: Trachea midline, no gross abnormalities. CHEST: Clear to auscultation with no wheezing or rhonchi appreciated. HEART: S1-S2 appreciated. ABDOMEN: Soft, obese. Bowel sounds are positive. No organomegaly. No guarding or rigidity. EXTREMITIES: No pedal edema. SKIN: No rashes, no jaundice. NEUROLOGIC: Alert and oriented x3. - Labs CBC & Chem 7: 02/23/19 10:45 02/23/19 03:22 Labs: Abnormal Lab Results - Last 24 Hours (Table) 02/22/19 02/22/19 02/23/19 Range/Units 20:37 22:03 03:22 WBC 11.1 H (3.8-10.6) k/uL RBC 3.88 L (4.30-5.90) m/uL Hgb 11.5 L (13.0-17.5) gm/dL Hct 33.7 L (39.0-53.0) % Sodium 136 L (137-145) mmol/L BUN 23 H (9-20) mg/dL Glucose 179 H (74-99) mg/dL POC Glucose (mg/dL) 187 H (75-99) mg/dL Hemoglobin A1c (4.0-6.0) % Calcium 7.6 L (8.4-10.2) mg/dL ALT 20 L (21-72) U/L Total Protein 4.9 L (6.3-8.2) g/dL Albumin 2.6 L (3.5-5.0) g/dL 02/23/19 02/23/19 02/23/19 Range/Units 03:22 03:22 06:57 WBC (3.8-10.6) k/uL RBC 3.48 L (4.30-5.90) m/uL Hgb 11.0 L (13.0-17.5) gm/dL Hct 30.2 L (39.0-53.0) % Sodium (137-145) mmol/L BUN (9-20) mg/dL Glucose (74-99) mg/dL POC Glucose (mg/dL) 211 H (75-99) mg/dL Hemoglobin A1c 7.5 H (4.0-6.0) % Calcium (8.4-10.2) mg/dL ALT (21-72) U/L Total Protein (6.3-8.2) g/dL Albumin (3.5-5.0) g/dL 02/23/19 02/23/19 02/23/19 Range/Units 10:45 12:06 17:24 WBC (3.8-10.6) k/uL RBC 3.34 L (4.30-5.90) m/uL Hgb 10.3 L (13.0-17.5) gm/dL Hct 29.4 L (39.0-53.0) % Sodium (137-145) mmol/L BUN (9-20) mg/dL Glucose (74-99) mg/dL POC Glucose (mg/dL) 147 H 211 H (75-99) mg/dL Hemoglobin A1c (4.0-6.0) % Calcium (8.4-10.2) mg/dL ALT (21-72) U/L Total Protein (6.3-8.2) g/dL Albumin (3.5-5.0) g/dL Assessment and Plan (1) GI bleed Narrative/Plan: 78-year-old man presents to the hospital due to syncope after which she was found in a pool of maroon-colored stool. He denies any NSAID use at home and has similar episodes of GI bleeding suspicious for an upper GI pathology in the past during which she was scoped in 03/2018 with findings of a hiatal hernia, gastritis and duodenitis. Unclear etiology, this may represent diverticular bleeding given his known history of diverticulosis seen on colonoscopy in 2013, bleeding AVM, stercoral ulcer in the setting of constipation or other etiology. Patient was hemoglobin was essentially normal on admission has had further fall in hemoglobin from 11.5 yesterday to 10.3 today in the setting of maroon-colored stools. Current Visit: Yes Status: Acute Code(s): K92.2 - GASTROINTESTINAL HEMORRHAGE, UNSPECIFIED SNOMED Code(s): 38387599 (2) Constipation Current Visit: Yes Status: Acute Code(s): K59.00 - CONSTIPATION, UNSPECIFIED SNOMED Code(s): 96018863 (3) Diverticulosis Current Visit: Yes Status: Acute Code(s): K57.90 - DVRTCLOS OF INTEST, PART UNSP, W/O PERF OR ABSCESS W/O BLEED SNOMED Code(s): 040417847 Plan: Supportive care Clear liquid diet and nothing by mouth after midnight Continue empiric Protonix therapy of upper GI bleed Plan for further evaluation with EGD and colonoscopy tomorrow Kidneys monitor hemoglobin and hematocrit and transfuse as needed Continue to monitor stool output Thank you for allowing us to participate in the care of the patient we will continue to follow
[2019-02-23] MEDS: INSULIN DETEMIR (LEVEMIR) 100 UNIT/ML SYR SQ SCH (21:25)
[2019-02-23 21:38] LABS: Glucose,Whole Blood 171 mg/dL (75-99)
[2019-02-23 23:27] LABS: Glucose,Whole Blood 151 mg/dL (75-99)
[2019-02-24 05:15] LABS: Basophils # (A) 0.1 k/uL (0-0.2); Basophils % (A) 1 %; Eosinophils # (A) 0.2 k/uL (0-0.7); Eosinophils % (A) 2 %; HCT 23.5 % (39.0-53.0); Lymphocytes # (A) 1.6 k/uL (1.0-4.8); Lymphocytes % (A) 16 %; MCH 29.8 pg (25.0-35.0); MCHC 33.3 g/dL (31.0-37.0); MCV 89.6 fL (80.0-100.0); Mean Platelet Volume 7.2; Monocytes # (A) 0.6 k/uL (0-1.0); Monocytes % (A) 6 %; Neutrophils # (A) 7.3 k/uL (1.3-7.7); Neutrophils % (A) 74 %; Platelet Count 196 k/uL (150-450); RBC 2.62 m/uL (4.30-5.90); RDW 13.5 % (11.5-15.5); WBC 9.9 k/uL (3.8-10.6)
[2019-02-24 05:25] LABS: African American GFR (CKD) >90 (>60 ml/min/1.73 sqM); Anion Gap 7 mmol/L; Blood Urea Nitrogen 21 mg/dL (9-20); Calcium 7.5 mg/dL (8.4-10.2); Carbon Dioxide 23 mmol/L (22-30); Chloride 107 mmol/L (98-107); Glucose 145 mg/dL (74-99); HGB 7.8 gm/dL (13.0-17.5); Potassium 4.2 mmol/L (3.5-5.1); Sodium 137 mmol/L (137-145)
[2019-02-24 05:59] LABS: Glucose,Whole Blood 160 mg/dL (75-99)
[2019-02-24] MEDS: INSULIN ASPART (NovoLOG) 100 UNIT/ML VIAL SQ SCH ×3 (06:12→18:31)
[2019-02-24] MEDS: CARBIDOPA-LEVODOPA 25-100 MG 1 EACH TAB PO SCH ×3 (06:13→16:51)
[2019-02-24] MEDS: LEVOTHYROXINE 100 MCG TAB PO SCH (06:13)
[2019-02-24 08:29] LABS: HGB 7.6 gm/dL (13.0-17.5); MCH 30.7 pg (25.0-35.0); MCHC 34.5 g/dL (31.0-37.0); Mean Platelet Volume 8.3; Platelet Count 177 k/uL (150-450); RBC 2.47 m/uL (4.30-5.90); RDW 13.9 % (11.5-15.5); WBC 10.4 k/uL (3.8-10.6)
[2019-02-24] MEDS: PANTOPRAZOLE 40 MG/10 ML VIAL IV SCH ×2 (08:31→20:53)
[2019-02-24] MEDS: MORPHINE SULFATE 2 MG/ML SYRINGE IVP PRN ×3 (11:00→23:50)
--- NOTE | 2019-02-24 11:51 | P.PN ---
Subjective Progress Note Date: 02/24/19 78-year-old male one of Dr. Cruz's patient with past medical history of Parkinson disease, diabetes, hypertension, obstructive sleep apnea and hypothyroidism who reported that he had syncopal episode when he went to the bathroom felt very fainted lightheaded and he passed out his found him on the ground had the very large bloody bowel movement the same time with complete blood according to her after he was complaining of mild abdominal discomfort. Patient was in the emergency room 2 days earlier with abdominal pain and no major finding at the time. His hemoglobin still elevated patient is an active gastrointestinal bleed. He had previous history of GI bleed in 2016 was hospitalized and had both scope done by Dr. Le at the time. Patient will be admitted to the ICU keep doing CBC every few hours to his clearance stable hemodynamically and might be scheduled for an EGD tomorrow morning if his stable. 02/22 patient examined bedside continue to endorse nausea and hadburgundi color stool today. Vitals are stable with a temp of 90 7.9R respiratory rate of 17 pulse 65 blood pressure 171/86. Not currently nothing by mouth patient did have breakfast this morning with clear liquid diet. Gastric evaluation pending continue patient to be nothing by mouth. Continue lisinopril and metoprolol for blood pressure control. 2 hydralazine 10 mg every 6 hours when necessary for systolic more than 160 02/23: Patient was examined at the bedside. is at the bedside. Patient continues to complain of nausea and tenderness to the epigastric area. Patient continues to have maroon colored stool. Denies any vomiting initial hemoglobin upon admission was 14.0 hemoglobin continues to drift today's hemoglobin 11.0. Patient continues to have maroon-colored stools throughout the evening. Patient was seen by GI, possible endoscopic evaluation was for both outpatient. Vital signs remained stable. 02/24: Patient c\o chest pain, troponin negative, morphine given. Blood pressure increased patient a longer has chest pain at this time. Prep completed for GI study. Patient continues to have maroon-colored stool. Hemoglobin dropped to 7. 4 in the evening. We'll transfuse 1 unit of packed red blood cells. Patient still complains of epigastric pain. Denies any nausea or vomiting at this time. is at the bedside and discussed plan of care. Awaiting GI workup. Review of systems Constitutional: Denies chills, Denies fever, Denies lethargy, Denies malaise, Denies poor appetite, Denies weakness, Denies weight loss Eyes: denies decreased vision, denies diplopia, denies discharge, denies pain Ears: deny: decreased hearing Ears, nose, mouth and throat: Denies dental pain, Denies headache, Denies nasal discharge, Denies nose pain Cardiovascular: Denies chest pain, Denies decreased exercise tolerance, Denies edema, Denies high blood pressure, Denies irregular heart beat, Denies palpitations, Denies paroxysmal nocturnal dyspnea, Denies rapid heart beat, Denies shortness of breath Respiratory: Denies congestion, Denies cough, Denies cough with sputum, Denies dyspnea, Denies home oxygen, Denies wheezing Gastrointestinal: Positive abdominal pain right lower abdominal with red color stool,, Denies coffee ground emesis, Denies early satiety, Denies excessive gas, Denies heartburn, Denies hematemesis, Denies hematochezia, Denies loss of appetite, positive for nausea, Denies vomiting Genitourinary: Denies dysuria, Denies flank pain, Denies kidney stones, Denies menorrhagia, Denies urgency, Denies urinary frequency Objective - Vital Signs Vital signs: Vital Signs Temp 98.1 F 02/24/19 08:00 Pulse 85 02/24/19 11:00 Resp 10 L 02/24/19 11:00 BP 107/81 02/24/19 11:00 Pulse Ox 98 02/24/19 11:00 Intake & Output 02/23/19 02/24/19 02/24/19 18:59 06:59 18:59 Intake Total 600 900 375 Output Total 402 428 150 Balance 198 472 225 Weight 103.6 kg Intake: IV 600 900 375 Sodium Chloride 0.9% 1, 600 900 375 000 ml @ 75 mls/hr IV . [id number] [facility] Rx#:[id number] Output: Urine 400 225 150 Stool 2 203 Other: Voiding Method Urinal Urinal # Voids 1 1 # Bowel Movements 1 1 - Exam General Appearance: Alert, cooperative, no distress, appears stated age. Neck HEENT: Supple, no lymphadenopathy, no thyroid enlargement, no carotid bruits. Lungs: Clear to auscultation without crackles or wheezes no rhonchi, no deformity. Chest Wall: Chest wall normal expansion with deep inspiration no tenderness and no deformity was found on exam, no costochondral pain or discomfort. Heart: Regular rate and rhythm, S1, S2 normal, no murmur, rub or gallop. Back: Symmetric, no curvature, ROM normal, no CVA tenderness. Abdomen: Soft, epigastric tenderness, no rebound or rigidity, no hepatosplenomegaly. Extremities: Extremities normal, atraumatic, no cyanosis or edema. Pulses: 2+ and symmetric. Skin: Skin color, texture, tugor normal, no rashes or lesions. Neurologic: Alert oriented x3 cranial nerves II through XII intact, resting tremor noted no motor deficit, strength equal bilaterally - Labs CBC & Chem 7: 02/24/19 08:15 02/24/19 04:43 Labs: Abnormal Lab Results - Last 24 Hours (Table) 02/23/19 02/23/19 02/23/19 Range/Units 03:22 12:06 17:24 RBC (4.30-5.90) m/uL Hgb (13.0-17.5) gm/dL Hct (39.0-53.0) % BUN (9-20) mg/dL Glucose (74-99) mg/dL POC Glucose (mg/dL) 147 H 211 H (75-99) mg/dL Hemoglobin A1c 7.5 H (4.0-6.0) % Calcium (8.4-10.2) mg/dL 02/23/19 02/23/19 02/24/19 Range/Units 21:36 23:26 04:43 RBC 2.62 L (4.30-5.90) m/uL Hgb 7.8 L D (13.0-17.5) gm/dL Hct 23.5 L (39.0-53.0) % BUN (9-20) mg/dL Glucose (74-99) mg/dL POC Glucose (mg/dL) 171 H 151 H (75-99) mg/dL Hemoglobin A1c (4.0-6.0) % Calcium (8.4-10.2) mg/dL 02/24/19 02/24/19 02/24/19 Range/Units 04:43 05:58 08:15 RBC 2.47 L (4.30-5.90) m/uL Hgb 7.6 L (13.0-17.5) gm/dL Hct 22.0 L (39.0-53.0) % BUN 21 H (9-20) mg/dL Glucose 145 H (74-99) mg/dL POC Glucose (mg/dL) 160 H (75-99) mg/dL Hemoglobin A1c (4.0-6.0) % Calcium 7.5 L (8.4-10.2) mg/dL Assessment and Plan Plan: 1. acute gastrointestinal bleed: GI recommendation conservative measures, endoscopic exam scheduled today. Hemoglobin dropped to 7.6. transfuse 1 unit of packed red blood cells continue to monitor CBC. 2. syncopal episode: Most likely from the severity of the GI bleed as causing the blood pressure to be slightly bit low with low volume, continue fluid resuscitation no need for blood transfusion unless hemoglobin dropped below at least 80 g. Continue current treatment management for now. 3. recent fall, no injury mild bruise on the right leg continue topical care. 4. type 2 diabetes on insulin: Patient has been on to Trisiba 32 unit daily along with Humalog 15 units before meals meals continue Accu-Chek sliding scales coverage. 5. Chest pain. troponin ordered - 0.012, continue to monitor CBC, morphine 2 mg when necessary 6. Hypertension: Continue patient on lisinopril 10 mg a day along with metoprolol XL 25 mg daily. Hydralazine 10 IV every 6 as needed for systolic more than 160 7. Parkinson disease: Patient is on carbidopa levodopa resume medication for now. 8. Alzheimer disease: Patient is on donepezil 10 mg daily. 9. chronic depression: Patient is on Effexor or ER total of 225 mg daily. Discussed possible need for psychiatric consult an outpatient setting. 10. hypothyroidism: Continue patient on levothyroxine 100 g daily. 11. DVT prophylaxis: Continue knee-high THEA hose and Venodyne boots for now with early mobilization. 12. GI prophylaxis: Patient will be on pantoprazole IV twice a day. CODE STATUS: Full code. Impression and plan of care have been directed as dictated by the signing physician. Radha Peres nurse practitioner acting as scribe for signing physician.
[2019-02-24 12:00] LABS: Glucose,Whole Blood 126 mg/dL (75-99)
--- NOTE | 2019-02-24 12:21 | P.PN ---
Subjective Progress Note Date: 02/24/19 Principal diagnosis: Acute GI bleeding This is a very pleasant 78-year-old gentleman who follows with Dr. Cruz as his primary care physician. He has a history of Parkinson's disease, depression, hypothyroidism, diabetes mellitus, hypertension, previous GI bleed. He had undergone EGD with biopsy in March 2018. There was a small sliding hiatal hernia with no obvious esophagitis or complicated reflux disease. There was gastritis and duodenitis with duodenal bulb ulcer not actively bleeding at that time. Biopsies were negative for malignancy. No pathology. Early this morning he was up in the bathroom and had a large amount of lea stool and a syncopal episode. His heard him fall. He was brought here by EMS for the same. He did sustain minor injuries to his right lower extremity right elbow. He had some neck pain. Multiple x-rays revealed no fractures. Chest x-ray showed no acute pulmonary process. EKG shows normal sinus rhythm. Initial hemoglobin 14.0. White count 11.8. Creatinine 1.09. He is seen in consultation in the intensive care unit. Awake and alert in no acute distress. Hemodynamically stable. Not requiring pressors at this point. He has been initiated on 0.9 normal saline at 75 ML's per hour and Protonix 40 mg IV twice a day. Patient was reevaluated today on 02/22/2019, had minimal amount of burgundy color stool earlier today. However the patient is stable hemodynamically, does not feel lightheaded, patient's hemoglobin is stable. Hemoglobin today is 12.5. Yet to be seen by gastroenterology. And uncertain whether the patient will need to have EGD at this point in the meantime I will go ahead and recommend that we keep him nothing by mouth just in case EGD will be scheduled to be done today. And considering the patient is hemodynamically stable, and no significant the bleeding is noted we can potentially transfer the patient out of the ICU to a monitor bed. Reevaluated today on 02/23/2019, patient remains in the ICU, he was seen by gastroenterology yesterday, and basically recommended conservative measures. However the patient is having multiple episodes of burgundy colored stools over the last 24 hours, and his hemoglobin did drift down to 11.0 from 11.5 yesterday. His initial hemoglobin on admission was 14.0. Clearly the patient is actively bleeding/oozing and there has been a steady decline in his hemoglobin since admission. Not to mention the patient has clinically obvious GI bleeding with burgundy stools almost on a daily basis. Hence I have instructed the nurses to contact gastroenterology again, and consider endoscopy on this patient. Reevaluated today on 02/24/2019, patient continues to have intermittent episodes of burgundy colored stools, his hemoglobin dropped down to 7.4 today, and he is to receive 1 unit of packed RBCs, scheduled to undergo further GI workup including EGD and colonoscopy today. Patient denies any blurred vision, denies any syncope, denies any lightheadedness. Denies any abdominal pain. Objective - Vital Signs Vital signs: Vital Signs Temp 98.1 F 02/24/19 08:00 Pulse 85 02/24/19 11:00 Resp 10 L 02/24/19 11:00 BP 107/81 02/24/19 11:00 Pulse Ox 98 02/24/19 11:00 Intake & Output 02/23/19 02/24/19 02/24/19 18:59 06:59 18:59 Intake Total 600 900 375 Output Total 402 428 150 Balance 198 472 225 Weight 103.6 kg Intake: IV 600 900 375 Sodium Chloride 0.9% 1, 600 900 375 000 ml @ 75 mls/hr IV . [id number] [facility] Rx#:[id number] Output: Urine 400 225 150 Stool 2 203 Other: Voiding Method Urinal Urinal Indwelling Catheter # Voids 1 1 # Bowel Movements 1 1 1 - Exam GENERAL EXAM: Alert, comfortable in no apparent distress. On room air. HEAD: Normocephalic. EYES: Normal reaction of pupils, equal size. NOSE: Clear with pink turbinates. THROAT: No erythema or exudates. NECK: No masses, no JVD. CHEST: No chest wall deformity. LUNGS: Equal air entry with no crackles, wheeze, rhonchi or dullness. CVS: S1 and S2 normal with no audible murmur, regular rhythm. ABDOMEN: No hepatosplenomegaly, normal bowel sounds, no guarding or rigidity. SPINE: No scoliosis or deformity SKIN: No rashes CENTRAL NERVOUS SYSTEM: Parkinson's, tremors, tone is normal in all 4 extremities. EXTREMITIES: Dressings to abrasions from fall. Tremors. There is no peripheral edema. No clubbing, no cyanosis. Peripheral pulses are intact. - Labs CBC & Chem 7: 02/24/19 08:15 02/24/19 04:43 Labs: Abnormal Lab Results - Last 24 Hours (Table) 02/23/19 02/23/19 02/23/19 Range/Units 03:22 17:24 21:36 RBC (4.30-5.90) m/uL Hgb (13.0-17.5) gm/dL Hct (39.0-53.0) % BUN (9-20) mg/dL Glucose (74-99) mg/dL POC Glucose (mg/dL) 211 H 171 H (75-99) mg/dL Hemoglobin A1c 7.5 H (4.0-6.0) % Calcium (8.4-10.2) mg/dL 02/23/19 02/24/19 02/24/19 Range/Units 23:26 04:43 04:43 RBC 2.62 L (4.30-5.90) m/uL Hgb 7.8 L D (13.0-17.5) gm/dL Hct 23.5 L (39.0-53.0) % BUN 21 H (9-20) mg/dL Glucose 145 H (74-99) mg/dL POC Glucose (mg/dL) 151 H (75-99) mg/dL Hemoglobin A1c (4.0-6.0) % Calcium 7.5 L (8.4-10.2) mg/dL 02/24/19 02/24/19 02/24/19 Range/Units 05:58 08:15 11:59 RBC 2.47 L (4.30-5.90) m/uL Hgb 7.6 L (13.0-17.5) gm/dL Hct 22.0 L (39.0-53.0) % BUN (9-20) mg/dL Glucose (74-99) mg/dL POC Glucose (mg/dL) 160 H 126 H (75-99) mg/dL Hemoglobin A1c (4.0-6.0) % Calcium (8.4-10.2) mg/dL Assessment and Plan Assessment: Impression: 1 acute GI bleeding, exact source in nature is not clear,patient continues to have active bleeding, hence he is scheduled for blood transfusion today, EGD, and colonoscopy today. 2 acute syncopal episode secondary to GI bleeding, \ 3 type 2 diabetes, on insulin 4 recent fall but no injury 5 history of hypertension 6 history of Parkinson's disease and Alzheimer's disease on treatment 7 hypothyroidism Recommendation: Continue present treatment plan continue Protonix, transfuse the patient with 1 unit of packed RBCs today,continue to monitor in the ICU, discussed his condition with the executive consultant yesterday, and he scheduled for EGD and colonoscopy today. We'll continue to follow closely. Not quite ready for transfer out of the ICU at this point yet. Time with Patient: Less than 30
[2019-02-24] MEDS ORDERED: LIDOCAINE 1% INJ 10MG/ML (20 ML MDV) ONE (12:47)
[2019-02-24] MEDS ORDERED: PHENYLEPHRINE-0.9% NACL SYG 1 MG/10 ML SYRINGE ONE (12:47)
[2019-02-24] MEDS ORDERED: PROPOFOL 10 MG/ML 20 ML VIAL IV ONE (12:47)
[2019-02-24] MEDS ORDERED: IV FLUID CONTINUATION 600 ML IV ONE (12:48)
[2019-02-24] MEDS ORDERED: EPINEPHrine 1 MG/ML 1 ML AMP INTRATRACH ONE (13:16)
--- NOTE | 2019-02-24 14:13 | P.PCN ---
Date of Procedure: 02/24/19 Description of Procedure: Brief history: 78-year-old man presents to the hospital due to syncope after which she was found in a pool of maroon-colored stool. He denies any NSAID use at home and has similar episodes of GI bleeding suspicious for an upper GI pathology in the past during which she was scoped in 03/2018 with findings of a hiatal hernia, gastritis and duodenitis. Unclear etiology, this may represent diverticular bleeding given his known history of diverticulosis seen on colonoscopy in 2013, bleeding AVM, stercoral ulcer in the setting of constipation or other etiology. Patients hemoglobin was essentially normal on admission before falling from 11.5 to 10.3 and then 7.1 in the setting of continued passage of marroned stools as he was being prepped for EGD and colonoscopy for further investigation. Procedure performed: Esophagogastroduodenoscopy with epinephrine injection, Gold probe cautery and clip placement Colonoscopy Estimated blood loss: Minimal. Preoperative diagnosis: anemia of acute blood loss, GI bleed Anesthesia: MAC Procedure: After informed consent was obtained from the patient was brought into the endoscopy unit and IV sedation was administered by anesthesia under continuous monitoring. Initially upper endoscopy was done. The Olympus GF 190 video endoscope was inserted inserted into the mouth and esophagus intubated without any difficulty and was gradually advanced into the stomach and duodenum and carefully examined. The second part of the duodenum appeared normal. The duodenal bulb was significant for a large nonbleeding 2 cm ulcer. There appeared to be a visible vessel in the ulcer with a small clot that was lavaged. 4 mL of epinephrine were injected in circumferential manner around the ulcer. Attempted clip placement was performed to 3 times however the clips failed to deploy. At this time a cold probe was used for cautery. There is no active bleeding from the ulcer at completion of the intervention. The scope was then withdrawn into the stomach adequately insufflated with air and upon careful examination the antrum and body, cardia and fundus appeared normal. The scope was then withdrawn into the esophagus. The GE junction was located at 40 cm to the incisors, with a superficial tear noted likely from scope manipulation at this was not seen initially when the scope was passed through the esophagus on intubation of the stomach. It appeared regular with no erythema erosions or ulcerations. Rest of the esophagus appeared normal. Patient tolerated the procedure well. At this time the patient continued to remain sedation. Initial digital rectal examination was normal. Olympus CF 190 video colonoscope was then inserted into the rectum and gradually advanced to the transverse colon. Careful examination was performed as the scope was gradually being withdrawn. The prep was poor with large clots noted throughout the sigmoid and descending colon and dark black hemolyzed blood noted in the transverse colon which made visualization of the colon impossible at which point the procedure was aborted for safety reasons. No active bleeding was noted. Patient tolerated the procedure well. Impression: 1. Large ulcer in the duodenal bulb without active bleeding but with clots and vessel noted. This was treated with injection 4 mL of epinephrine and cautery with gold probe. Attempted Endo Clip placement was unsuccessful on 3 occasions due to failure of the clip to deploy. 2. Clots and hemolyzed blood noted throughout the colon. Aborted/incomplete colonoscopy due to impaired visualization at the mid transverse colon where hemolyzed dark blood covered the mucosa and made proceeding with the procedure unsafe. Recommendations: Findings of this examination were discussed with the patient as well as his . Continue Protonix IV 40 mg twice daily. Continue to monitor hemoglobin and hematocrit and transfuse as needed. He should remain nothing by mouth with ice chips and sips of water. Avoid NSAID use. Would recommend surgical consult at this time and if patient has further bleeding would recommend surgery for definitive treatment.
[2019-02-24] MEDS: METOPROLOL SUCCINATE (ER) 25 MG TAB.ER.24H PO SCH (15:52)
[2019-02-24] MEDS: FOLIC ACID 1 MG TAB PO SCH (16:44)
[2019-02-24] MEDS: LISINOPRIL 10 MG TAB PO SCH (16:44)
[2019-02-24] MEDS: MAGNESIUM OXIDE 400 MG TAB PO SCH (16:44)
[2019-02-24] MEDS: CYANOCOBALAMIN 500 MCG TAB PO SCH ×2 (16:44→20:54)
[2019-02-24] MEDS: VENLAFAXINE HCL ER 150 MG CAP PO SCH (16:51)
[2019-02-24] MEDS: VENLAFAXINE HCL ER 75 MG CAP PO SCH (16:51)
[2019-02-24] MEDS: SODIUM CHLORIDE 0.9% 1,000 ML IV SCH (16:52)
[2019-02-24 17:02] LABS: Glucose,Whole Blood 147 mg/dL (75-99)
[2019-02-24] MEDS: DONEPEZIL 10 MG TAB PO SCH (18:32)
[2019-02-24] MEDS: INSULIN DETEMIR (LEVEMIR) 100 UNIT/ML SYR SQ SCH (20:53)
[2019-02-24] MEDS ORDERED: SODIUM CHLORIDE 0.9% 1,000 ML IV ONE (21:52)
[2019-02-24 23:41] LABS: Glucose,Whole Blood 113 mg/dL (75-99)
[2019-02-25] MEDS: SODIUM CHLORIDE 0.9% 1,000 ML IV SCH ×2 (02:10→14:45)
[2019-02-25] MEDS: INSULIN ASPART (NovoLOG) 100 UNIT/ML VIAL SQ SCH ×4 (02:11→18:04)
[2019-02-25 05:15] LABS: Basophils # (A) 0.1 k/uL (0-0.2); Basophils % (A) 0 %; Eosinophils # (A) 0.1 k/uL (0-0.7); Eosinophils % (A) 1 %; HCT 22.8 % (39.0-53.0); HGB 7.8 gm/dL (13.0-17.5); Lymphocytes # (A) 2.2 k/uL (1.0-4.8); Lymphocytes % (A) 11 %; MCH 30.3 pg (25.0-35.0); MCHC 34.2 g/dL (31.0-37.0); MCV 88.7 fL (80.0-100.0); Mean Platelet Volume 7.6; Monocytes # (A) 0.8 k/uL (0-1.0); Monocytes % (A) 4 %; Neutrophils # (A) 16.3 k/uL (1.3-7.7); Neutrophils % (A) 83 %; Platelet Count 172 k/uL (150-450); RBC 2.57 m/uL (4.30-5.90); WBC 19.7 k/uL (3.8-10.6)
[2019-02-25 05:21] LABS: Calcium 7.5 mg/dL (8.4-10.2)
[2019-02-25] MEDS ORDERED: DEXTROSE 50% SYRINGE 50 ML IVP ONE (05:42)
[2019-02-25] MEDS ORDERED: DEXTROSE 50% SYRINGE 50 ML IVP STA (05:50)
[2019-02-25 06:07] LABS: Glucose,Whole Blood 63 mg/dL (75-99)
[2019-02-25] MEDS: CARBIDOPA-LEVODOPA 25-100 MG 1 EACH TAB PO SCH ×3 (06:10→18:04)
[2019-02-25] MEDS: LEVOTHYROXINE 100 MCG TAB PO SCH (06:10)
[2019-02-25 06:17] LABS: Glucose,Whole Blood 90 mg/dL (75-99)
[2019-02-25] MEDS: DONEPEZIL 10 MG TAB PO SCH (08:57)
[2019-02-25] MEDS: CYANOCOBALAMIN 500 MCG TAB PO SCH ×2 (08:57→20:52)
[2019-02-25] MEDS: FOLIC ACID 1 MG TAB PO SCH (08:57)
[2019-02-25] MEDS: VENLAFAXINE HCL ER 150 MG CAP PO SCH (08:58)
[2019-02-25] MEDS: METOPROLOL SUCCINATE (ER) 25 MG TAB.ER.24H PO SCH (08:58)
[2019-02-25] MEDS: LISINOPRIL 10 MG TAB PO SCH (08:58)
[2019-02-25] MEDS: PANTOPRAZOLE 40 MG/10 ML VIAL IV SCH ×2 (08:58→20:51)
[2019-02-25] MEDS: VENLAFAXINE HCL ER 75 MG CAP PO SCH (08:58)
[2019-02-25] MEDS: MAGNESIUM OXIDE 400 MG TAB PO SCH (08:58)
--- NOTE | 2019-02-25 09:12 | P.PN ---
Subjective Progress Note Date: 02/25/19 Principal diagnosis: Acute GI bleeding This is a very pleasant 78-year-old gentleman who follows with Dr. Cruz as his primary care physician. He has a history of Parkinson's disease, depression, hypothyroidism, diabetes mellitus, hypertension, previous GI bleed. He had undergone EGD with biopsy in March 2018. There was a small sliding hiatal hernia with no obvious esophagitis or complicated reflux disease. There was gastritis and duodenitis with duodenal bulb ulcer not actively bleeding at that time. Biopsies were negative for malignancy. No pathology. Early this morning he was up in the bathroom and had a large amount of lea stool and a syncopal episode. His heard him fall. He was brought here by EMS for the same. He did sustain minor injuries to his right lower extremity right elbow. He had some neck pain. Multiple x-rays revealed no fractures. Chest x-ray showed no acute pulmonary process. EKG shows normal sinus rhythm. Initial hemoglobin 14.0. White count 11.8. Creatinine 1.09. He is seen in consultation in the intensive care unit. Awake and alert in no acute distress. Hemodynamically stable. Not requiring pressors at this point. He has been initiated on 0.9 normal saline at 75 ML's per hour and Protonix 40 mg IV twice a day. Patient was reevaluated today on 02/22/2019, had minimal amount of burgundy color stool earlier today. However the patient is stable hemodynamically, does not feel lightheaded, patient's hemoglobin is stable. Hemoglobin today is 12.5. Yet to be seen by gastroenterology. And uncertain whether the patient will need to have EGD at this point in the meantime I will go ahead and recommend that we keep him nothing by mouth just in case EGD will be scheduled to be done today. And considering the patient is hemodynamically stable, and no significant the bleeding is noted we can potentially transfer the patient out of the ICU to a monitor bed. Reevaluated today on 02/23/2019, patient remains in the ICU, he was seen by gastroenterology yesterday, and basically recommended conservative measures. However the patient is having multiple episodes of burgundy colored stools over the last 24 hours, and his hemoglobin did drift down to 11.0 from 11.5 yesterday. His initial hemoglobin on admission was 14.0. Clearly the patient is actively bleeding/oozing and there has been a steady decline in his hemoglobin since admission. Not to mention the patient has clinically obvious GI bleeding with burgundy stools almost on a daily basis. Hence I have instructed the nurses to contact gastroenterology again, and consider endoscopy on this patient. Reevaluated today on 02/24/2019, patient continues to have intermittent episodes of burgundy colored stools, his hemoglobin dropped down to 7.4 today, and he is to receive 1 unit of packed RBCs, scheduled to undergo further GI workup including EGD and colonoscopy today. Patient denies any blurred vision, denies any syncope, denies any lightheadedness. Denies any abdominal pain. On 02/25/2019 patient seen in follow-up in the intensive care unit. He is awake and alert, resting comfortably in bed, a little groggy today, but no acute complaints, no difficulty breathing, no chest pain, room air pulse ox is 96%, hemodynamically stable, afebrile, he is status post EGD, with the findings of a hiatal hernia, gastritis and duodenitis, underwent epinephrine injection, and gold probe cautery and clips placement. No episodes of GI bleeding overnight, today's labs have been reviewed, showing white blood cell count of 19.7, hemoglobin of 7.8, platelet count of 172, sodium is 138, potassium is 4.0, chloride is 112, CO2 is 23, B1 is 24, creatinine is 1.06. Lung sounds are clear, no signs are stable. Gaffney catheter is in, patient is nonoliguric, IV 0.9 normal saline at a rate of 75 ML per hour. Patient has received 1 unit of packed red blood cells this admission. Nothing by mouth except for ice chips Objective - Vital Signs Vital signs: Vital Signs Temp 97.9 F 02/25/19 04:00 Pulse 82 02/25/19 07:00 Resp 18 02/25/19 07:00 BP 139/58 02/25/19 07:00 Pulse Ox 96 02/25/19 07:00 Intake & Output 02/24/19 02/25/19 02/25/19 18:59 06:59 18:59 Intake Total 1450 2210 75 Output Total 400 500 35 Balance 1050 1710 40 Weight 107 kg Intake: IV 1350 1900 75 Sodium Chloride 0.9% 1, 750 900 75 000 ml @ 75 mls/hr IV . [id number] [facility] Rx#:[id number] Sodium Chloride 0.9% 1, 1000 000 ml @ 999 mls/hr IV . Q1H1M [facility] Rx#:[id number] Oral 100 Blood Product 310 Rc As-1 Unit 310 [id number] Output: Urine 400 500 35 Other: Voiding Method Indwelling Catheter Indwelling Catheter # Bowel Movements 1 - Exam GENERAL EXAM: Alert, pleasant, 78-year-old white male, comfortable in no apparent distress. HEAD: Normocephalic/atraumatic. EYES: Normal reaction of pupils, equal size. Conjunctiva pink, sclera white. NOSE: Clear with pink turbinates. THROAT: No erythema or exudates. NECK: No masses, no JVD, no thyroid enlargement, no adenopathy. CHEST: No chest wall deformity. Symmetrical expansion. LUNGS: Equal air entry with no crackles, wheeze, rhonchi or dullness. CVS: Regular rate and rhythm, normal S1 and S2, no gallops, no murmurs, no rubs ABDOMEN: Soft, nontender. No hepatosplenomegaly, normal bowel sounds, no guarding or rigidity. EXTREMITIES: No clubbing, no edema, no cyanosis, 2+ pulses and upper and lower extremities. MUSCULOSKELETAL: Muscle strength and tone normal. SPINE: No scoliosis or deformity SKIN: No rashes CENTRAL NERVOUS SYSTEM: Alert and oriented -3. No focal deficits, tone is normal in all 4 extremities. PSYCHIATRIC: Alert and oriented -3. Appropriate affect. Intact judgment and insight. - Labs CBC & Chem 7: 02/25/19 04:45 02/25/19 04:45 Labs: Abnormal Lab Results - Last 24 Hours (Table) 02/24/19 02/24/19 02/24/19 Range/Units 08:10 11:59 17:00 WBC (3.8-10.6) k/uL RBC (4.30-5.90) m/uL Hgb (13.0-17.5) gm/dL Hct (39.0-53.0) % Neutrophils # (1.3-7.7) k/uL Chloride (98-107) mmol/L BUN (9-20) mg/dL Glucose (74-99) mg/dL POC Glucose (mg/dL) 126 H 147 H (75-99) mg/dL Calcium (8.4-10.2) mg/dL Crossmatch See Detail 02/24/19 02/25/19 02/25/19 Range/Units 23:39 04:45 04:45 WBC 19.7 H (3.8-10.6) k/uL RBC 2.57 L (4.30-5.90) m/uL Hgb 7.8 L (13.0-17.5) gm/dL Hct 22.8 L (39.0-53.0) % Neutrophils # 16.3 H (1.3-7.7) k/uL Chloride 112 H (98-107) mmol/L BUN 24 H (9-20) mg/dL Glucose 58 L (74-99) mg/dL POC Glucose (mg/dL) 113 H (75-99) mg/dL Calcium 7.5 L (8.4-10.2) mg/dL Crossmatch 02/25/19 Range/Units 05:37 WBC (3.8-10.6) k/uL RBC (4.30-5.90) m/uL Hgb (13.0-17.5) gm/dL Hct (39.0-53.0) % Neutrophils # (1.3-7.7) k/uL Chloride (98-107) mmol/L BUN (9-20) mg/dL Glucose (74-99) mg/dL POC Glucose (mg/dL) 63 L (75-99) mg/dL Calcium (8.4-10.2) mg/dL Crossmatch Assessment and Plan Plan: Assessment: 1 acute GI bleeding, exact source in nature is not clear,patient continues to have active bleeding, hence he is scheduled for blood transfusion today, EGD, and colonoscopy today. 2 acute syncopal episode secondary to GI bleeding 3 type 2 diabetes, on insulin 4 recent fall but no injury 5 history of hypertension 6 history of Parkinson's disease and Alzheimer's disease on treatment 7 hypothyroidism 8 episode of hypoglycemia, related to status nothing by mouth, and long-acting insulin has been adjusted Plan: Continue monitoring in the ICU. Remains nothing by mouth except for ice chips, no episodes of hematemesis, or melena overnight, hemoglobin is 7.8 today, hemodynamically stable, chest x-ray today, labs have been reviewed. We'll decrease the dose of Levemir to 10 units at bedtime, and after 4 episodes of hypoglycemia, we'll continue to follow I performed a history & physical examination of the patient and discussed their management with my nurse practitioner, Genie Kulkarni. I reviewed the nurse practitioner's note and agree with the documented findings and plan of care. Lung sounds are positive for clear lung sounds. The findings and the impression was discussed with the patient. I attest to the documentation by the nurse practitioner. Time with Patient: Less than 30
[2019-02-25 11:42] LABS: Glucose,Whole Blood 65 mg/dL (75-99)
[2019-02-25 11:53] LABS: Glucose,Whole Blood 61 mg/dL (75-99)
[2019-02-25 12:09] LABS: Glucose,Whole Blood 65 mg/dL (75-99)
--- NOTE | 2019-02-25 12:15 | P.PN ---
Subjective Progress Note Date: 02/25/19 Principal diagnosis: GI bleed, anemia of acute blood loss, duodenal ulcer Patient C mind in bed reporting that he is thirsty. No abdominal pain reported. No bowel movements since his procedure. Objective - Vital Signs Vital signs: Vital Signs Temp 97.9 F 02/25/19 04:00 Pulse 75 02/25/19 11:00 Resp 19 02/25/19 11:00 BP 106/51 02/25/19 11:00 Pulse Ox 99 02/25/19 11:00 Intake & Output 02/24/19 02/25/19 02/25/19 18:59 06:59 18:59 Intake Total 1450 2210 475 Output Total 400 500 245 Balance 1050 1710 230 Weight 107 kg 107 kg Intake: IV 1350 1900 375 Sodium Chloride 0.9% 1, 750 900 375 000 ml @ 75 mls/hr IV . [id number] [facility] Rx#:[id number] Sodium Chloride 0.9% 1, 1000 000 ml @ 999 mls/hr IV . Q1H1M [facility] Rx#:[id number] Oral 100 100 Blood Product 310 Rc As-1 Unit 310 [id number] Output: Urine 400 500 245 Other: Voiding Method Indwelling Catheter Indwelling Catheter Indwelling Catheter # Bowel Movements 1 - Exam On physical examination, patient appears comfortable in no apparent distress. HEAD: Normocephalic, atraumatic. EYES: No scleral icterus. No conjunctival injection. MOUTH: No lesions, tongue midline. NECK: Trachea midline, no gross abnormalities. CHEST: Clear to auscultation with no wheezing or rhonchi appreciated. HEART: S1-S2 appreciated. ABDOMEN: Soft, obese. Bowel sounds are positive. No organomegaly. No guarding or rigidity. EXTREMITIES: No pedal edema. SKIN: No rashes, no jaundice. NEUROLOGIC: Alert and oriented x3. - Labs CBC & Chem 7: 02/25/19 04:45 02/25/19 04:45 Labs: Abnormal Lab Results - Last 24 Hours (Table) 02/24/19 02/24/19 02/25/19 Range/Units 17:00 23:39 04:45 WBC 19.7 H (3.8-10.6) k/uL RBC 2.57 L (4.30-5.90) m/uL Hgb 7.8 L (13.0-17.5) gm/dL Hct 22.8 L (39.0-53.0) % Neutrophils # 16.3 H (1.3-7.7) k/uL Chloride (98-107) mmol/L BUN (9-20) mg/dL Glucose (74-99) mg/dL POC Glucose (mg/dL) 147 H 113 H (75-99) mg/dL Calcium (8.4-10.2) mg/dL 02/25/19 02/25/19 02/25/19 Range/Units 04:45 05:37 11:39 WBC (3.8-10.6) k/uL RBC (4.30-5.90) m/uL Hgb (13.0-17.5) gm/dL Hct (39.0-53.0) % Neutrophils # (1.3-7.7) k/uL Chloride 112 H (98-107) mmol/L BUN 24 H (9-20) mg/dL Glucose 58 L (74-99) mg/dL POC Glucose (mg/dL) 63 L 65 L (75-99) mg/dL Calcium 7.5 L (8.4-10.2) mg/dL 02/25/19 Range/Units 11:52 WBC (3.8-10.6) k/uL RBC (4.30-5.90) m/uL Hgb (13.0-17.5) gm/dL Hct (39.0-53.0) % Neutrophils # (1.3-7.7) k/uL Chloride (98-107) mmol/L BUN (9-20) mg/dL Glucose (74-99) mg/dL POC Glucose (mg/dL) 61 L (75-99) mg/dL Calcium (8.4-10.2) mg/dL Assessment and Plan (1) GI bleed Narrative/Plan: 78-year-old man presents to the hospital due to syncope after which she was found in a pool of maroon-colored stool. He denies any NSAID use at home and has similar episodes of GI bleeding suspicious for an upper GI pathology in the past during which she was scoped in 03/2018 with findings of a hiatal hernia, gastritis and duodenitis. Patient's hemoglobin was essentially normal on admission had further fall in hemoglobin to 7.8 and was taken for EGD and colonoscopy. Large duodenal ulcer seen on EGD with high risk stigmata and was treated with clip placement, gold probe cauterization and epinephrine injection. Current Visit: Yes Status: Acute Code(s): K92.2 - GASTROINTESTINAL HEMORRHAGE, UNSPECIFIED SNOMED Code(s): 80180486 (2) Duodenal ulcer Current Visit: Yes Status: Acute Code(s): K26.9 - DUODENAL ULCER, UNSP ACUTE OR CHRONIC, W/O HEMOR OR PERF SNOMED Code(s): 62249854 (3) Constipation Current Visit: Yes Status: Acute Code(s): K59.00 - CONSTIPATION, UNSPECIFIED SNOMED Code(s): 78044988 (4) Diverticulosis Current Visit: Yes Status: Acute Code(s): K57.90 - DVRTCLOS OF INTEST, PART UNSP, W/O PERF OR ABSCESS W/O BLEED SNOMED Code(s): 338745071 Plan: Supportive care Clear liquid diet Protonix 40 mg twice a day Would recommend having surgery on standby in case patient has further bleeding and will require definitive intervention Continue to monitor hemoglobin and hematocrit and transfuse as needed Continue to monitor stool output Thank you for allowing us to participate in the care of the patient we will continue to follow
[2019-02-25 12:21] LABS: Glucose,Whole Blood 76 mg/dL (75-99)
--- NOTE | 2019-02-25 12:54 | P.PN ---
Subjective Progress Note Date: 02/25/19 78-year-old male one of Dr. Cruz's patient with past medical history of Parkinson disease, diabetes, hypertension, obstructive sleep apnea and hypothyroidism who reported that he had syncopal episode when he went to the bathroom felt very fainted lightheaded and he passed out his found him on the ground had the very large bloody bowel movement the same time with complete blood according to her after he was complaining of mild abdominal discomfort. Patient was in the emergency room 2 days earlier with abdominal pain and no major finding at the time. His hemoglobin still elevated patient is an active gastrointestinal bleed. He had previous history of GI bleed in 2016 was hospitalized and had both scope done by Dr. Le at the time. Patient will be admitted to the ICU keep doing CBC every few hours to his clearance stable hemodynamically and might be scheduled for an EGD tomorrow morning if his stable. 02/22 patient examined bedside continue to endorse nausea and had[place]undi color stool today. Vitals are stable with a temp of 90 7.9R respiratory rate of 17 pulse 65 blood pressure 171/86. Not currently nothing by mouth patient did have breakfast this morning with clear liquid diet. Gastric evaluation pending continue patient to be nothing by mouth. Continue lisinopril and metoprolol for blood pressure control. 2 hydralazine 10 mg every 6 hours when necessary for systolic more than 160 02/23: Patient was examined at the bedside. is at the bedside. Patient continues to complain of nausea and tenderness to the epigastric area. Patient continues to have maroon colored stool. Denies any vomiting initial hemoglobin upon admission was 14.0 hemoglobin continues to drift today's hemoglobin 11.0. Patient continues to have maroon-colored stools throughout the evening. Patient was seen by GI, possible endoscopic evaluation was for both outpatient. Vital signs remained stable. 02/24: Patient c\o chest pain, troponin negative, morphine given. Blood pressure increased patient a longer has chest pain at this time. Prep completed for GI study. Patient continues to have maroon-colored stool. Hemoglobin dropped to 7. 4 in the evening. We'll transfuse 1 unit of packed red blood cells. Patient still complains of epigastric pain. Denies any nausea or vomiting at this time. is at the bedside and discussed plan of care. Awaiting GI workup. 02/25: Patient underwent EGD yesterday that showed a large duodenal bulb ulcer that was injected with epinephrine, no active bleeding at this point in time he would be started on clear liquid diet, he would be kept in ICU for another 1-2 days. Colonoscopy was aborted as the patient had a lot of black old blood in the transverse colon . Review of systems Constitutional: Denies chills, Denies fever, Denies lethargy, Denies malaise, Denies poor appetite, Denies weakness, Denies weight loss Eyes: denies decreased vision, denies diplopia, denies discharge, denies pain Ears: deny: decreased hearing Ears, nose, mouth and throat: Denies dental pain, Denies headache, Denies nasal discharge, Denies nose pain Cardiovascular: Denies chest pain, Denies decreased exercise tolerance, Denies edema, Denies high blood pressure, Denies irregular heart beat, Denies palpitations, Denies paroxysmal nocturnal dyspnea, Denies rapid heart beat, Denies shortness of breath Respiratory: Denies congestion, Denies cough, Denies cough with sputum, Denies dyspnea, Denies home oxygen, Denies wheezing Gastrointestinal: Positive abdominal pain right lower abdominal with red color stool,, Denies coffee ground emesis, Denies early satiety, Denies excessive gas, Denies heartburn, Denies hematemesis, Denies hematochezia, Denies loss of appetite, positive for nausea, Denies vomiting Genitourinary: Denies dysuria, Denies flank pain, Denies kidney stones, Denies menorrhagia, Denies urgency, Denies urinary frequency Objective - Vital Signs Vital signs: Vital Signs Temp 97.9 F 02/25/19 04:00 Pulse 82 02/25/19 07:00 Resp 18 02/25/19 07:00 BP 139/58 02/25/19 07:00 Pulse Ox 96 02/25/19 07:00 Intake & Output 02/24/19 02/25/19 02/25/19 18:59 06:59 18:59 Intake Total 1450 2210 75 Output Total 400 500 35 Balance 1050 1710 40 Weight 107 kg Intake: IV 1350 1900 75 Sodium Chloride 0.9% 1, 750 900 75 000 ml @ 75 mls/hr IV . [id number] [facility] Rx#:[id number] Sodium Chloride 0.9% 1, 1000 000 ml @ 999 mls/hr IV . Q1H1M [facility] Rx#:[id number] Oral 100 Blood Product 310 Rc As-1 Unit 310 [id number] Output: Urine 400 500 35 Other: Voiding Method Indwelling Catheter Indwelling Catheter # Bowel Movements 1 - Exam - Exam General Appearance: Alert, cooperative, no distress, appears stated age. Neck HEENT: Supple, no lymphadenopathy, no thyroid enlargement, no carotid bruits. Lungs: Clear to auscultation without crackles or wheezes no rhonchi, no deformity. Chest Wall: Chest wall normal expansion with deep inspiration no tenderness and no deformity was found on exam, no costochondral pain or discomfort. Heart: Regular rate and rhythm, S1, S2 normal, no murmur, rub or gallop. Back: Symmetric, no curvature, ROM normal, no CVA tenderness. Abdomen: Soft, epigastric tenderness, no rebound or rigidity, no hepatosplenomegaly. Extremities: Extremities normal, atraumatic, no cyanosis or edema. Pulses: 2+ and symmetric. Skin: Skin color, texture, tugor normal, no rashes or lesions. Neurologic: Alert oriented x3 cranial nerves II through XII intact, resting tremor noted no motor deficit, strength equal bilaterally - Labs CBC & Chem 7: 02/25/19 04:45 02/25/19 04:45 Labs: Abnormal Lab Results - Last 24 Hours (Table) 02/24/19 02/24/19 02/24/19 Range/Units 08:10 11:59 17:00 WBC (3.8-10.6) k/uL RBC (4.30-5.90) m/uL Hgb (13.0-17.5) gm/dL Hct (39.0-53.0) % Neutrophils # (1.3-7.7) k/uL Chloride (98-107) mmol/L BUN (9-20) mg/dL Glucose (74-99) mg/dL POC Glucose (mg/dL) 126 H 147 H (75-99) mg/dL Calcium (8.4-10.2) mg/dL Crossmatch See Detail 02/24/19 02/25/19 02/25/19 Range/Units 23:39 04:45 04:45 WBC 19.7 H (3.8-10.6) k/uL RBC 2.57 L (4.30-5.90) m/uL Hgb 7.8 L (13.0-17.5) gm/dL Hct 22.8 L (39.0-53.0) % Neutrophils # 16.3 H (1.3-7.7) k/uL Chloride 112 H (98-107) mmol/L BUN 24 H (9-20) mg/dL Glucose 58 L (74-99) mg/dL POC Glucose (mg/dL) 113 H (75-99) mg/dL Calcium 7.5 L (8.4-10.2) mg/dL Crossmatch 02/25/19 Range/Units 05:37 WBC (3.8-10.6) k/uL RBC (4.30-5.90) m/uL Hgb (13.0-17.5) gm/dL Hct (39.0-53.0) % Neutrophils # (1.3-7.7) k/uL Chloride (98-107) mmol/L BUN (9-20) mg/dL Glucose (74-99) mg/dL POC Glucose (mg/dL) 63 L (75-99) mg/dL Calcium (8.4-10.2) mg/dL Crossmatch Assessment and Plan Assessment: Assessment and Plan Plan: 1. acute gastrointestinal bleed S/P EGD that showed large duodena bulb ulcer status post epinephrine injection, and incomplete colonoscopy due to large amount of blood covering the mucosa patient was readmitted intensive care unit, we'll continue to monitor the patient very closely continue with PPI, repeat CBC every 6 hours. 2. syncopal episode: Most likely from the severity of the GI bleed as causing the blood pressure to be slightly bit low with low volume, continue fluid resuscitation no need for blood transfusion unless hemoglobin dropped below at least 80 g. Continue current treatment management for now. 3. recent fall, no injury mild bruise on the right leg continue topical care. 4. type 2 diabetes on insulin: Patient has been on to Trisiba 32 unit daily along with Humalog 15 units before meals meals continue Accu-Chek sliding scales coverage. 5. Chest pain. troponin ordered - 0.012, continue to monitor CBC, morphine 2 mg when necessary 6. Hypertension: Continue patient on lisinopril 10 mg a day along with metoprolol XL 25 mg daily. Hydralazine 10 IV every 6 as needed for systolic more than 160 7. Parkinson disease: Patient is on carbidopa levodopa resume medication for now. 8. Alzheimer disease: Patient is on donepezil 10 mg daily. 9. chronic depression: Patient is on Effexor or ER total of 225 mg daily. Discussed possible need for psychiatric consult an outpatient setting. 10. hypothyroidism: Continue patient on levothyroxine 100 g daily. 11. DVT prophylaxis: Continue knee-high THEA hose and Venodyne boots for now with early mobilization. 12. GI prophylaxis: Patient will be on pantoprazole IV twice a day. CODE STATUS: Full code.
[2019-02-25] MEDS: ACETAMINOPHEN TAB 325 MG TAB PO PRN (16:33)
[2019-02-25 18:01] LABS: Glucose,Whole Blood 259 mg/dL (75-99)
[2019-02-25] MEDS: INSULIN DETEMIR (LEVEMIR) 100 UNIT/ML SYR SQ SCH (20:52)
[2019-02-25 21:01] LABS: Glucose,Whole Blood 148 mg/dL (75-99)
[2019-02-25 23:40] LABS: Glucose,Whole Blood 102 mg/dL (75-99)
[2019-02-26] MEDS: INSULIN ASPART (NovoLOG) 100 UNIT/ML VIAL SQ SCH ×5 (02:37→20:32)
[2019-02-26] MEDS: SODIUM CHLORIDE 0.9% 1,000 ML IV SCH (04:38)
[2019-02-26 05:43] LABS: Basophils % (A) 0 %; Eosinophils # (A) 0.3 k/uL (0-0.7); Eosinophils % (A) 3 %; HCT 20.2 % (39.0-53.0); Lymphocytes # (A) 1.8 k/uL (1.0-4.8); Lymphocytes % (A) 17 %; MCH 30.3 pg (25.0-35.0); MCHC 33.3 g/dL (31.0-37.0); MCV 90.9 fL (80.0-100.0); Mean Platelet Volume 7.4; Monocytes # (A) 0.6 k/uL (0-1.0); Monocytes % (A) 6 %; Neutrophils % (A) 74 %; Platelet Count 179 k/uL (150-450); RBC 2.22 m/uL (4.30-5.90); RDW 14.6 % (11.5-15.5); WBC 10.9 k/uL (3.8-10.6)
[2019-02-26 05:45] LABS: African American GFR (CKD) >90 (>60 ml/min/1.73 sqM); Anion Gap 5 mmol/L; Blood Urea Nitrogen 15 mg/dL (9-20); Calcium 7.2 mg/dL (8.4-10.2); Carbon Dioxide 22 mmol/L (22-30); Chloride 109 mmol/L (98-107); Glucose 111 mg/dL (74-99); Potassium 3.7 mmol/L (3.5-5.1); Sodium 136 mmol/L (137-145)
[2019-02-26 05:50] LABS: HGB 6.7 gm/dL (13.0-17.5)
[2019-02-26 06:18] LABS: Glucose,Whole Blood 131 mg/dL (75-99)
[2019-02-26] MEDS: LEVOTHYROXINE 100 MCG TAB PO SCH (07:11)
[2019-02-26] MEDS: CARBIDOPA-LEVODOPA 25-100 MG 1 EACH TAB PO SCH ×3 (07:11→16:57)
[2019-02-26 07:27] LABS: Glucose,Whole Blood 147 mg/dL (75-99)
--- NOTE | 2019-02-26 08:46 | P.PN ---
Subjective Progress Note Date: 02/26/19 Principal diagnosis: Acute GI bleeding This is a very pleasant 78-year-old gentleman who follows with Dr. Cruz as his primary care physician. He has a history of Parkinson's disease, depression, hypothyroidism, diabetes mellitus, hypertension, previous GI bleed. He had undergone EGD with biopsy in March 2018. There was a small sliding hiatal hernia with no obvious esophagitis or complicated reflux disease. There was gastritis and duodenitis with duodenal bulb ulcer not actively bleeding at that time. Biopsies were negative for malignancy. No pathology. Early this morning he was up in the bathroom and had a large amount of lea stool and a syncopal episode. His heard him fall. He was brought here by EMS for the same. He did sustain minor injuries to his right lower extremity right elbow. He had some neck pain. Multiple x-rays revealed no fractures. Chest x-ray showed no acute pulmonary process. EKG shows normal sinus rhythm. Initial hemoglobin 14.0. White count 11.8. Creatinine 1.09. He is seen in consultation in the intensive care unit. Awake and alert in no acute distress. Hemodynamically stable. Not requiring pressors at this point. He has been initiated on 0.9 normal saline at 75 ML's per hour and Protonix 40 mg IV twice a day. Patient was reevaluated today on 02/22/2019, had minimal amount of burgundy color stool earlier today. However the patient is stable hemodynamically, does not feel lightheaded, patient's hemoglobin is stable. Hemoglobin today is 12.5. Yet to be seen by gastroenterology. And uncertain whether the patient will need to have EGD at this point in the meantime I will go ahead and recommend that we keep him nothing by mouth just in case EGD will be scheduled to be done today. And considering the patient is hemodynamically stable, and no significant the bleeding is noted we can potentially transfer the patient out of the ICU to a monitor bed. Reevaluated today on 02/23/2019, patient remains in the ICU, he was seen by gastroenterology yesterday, and basically recommended conservative measures. However the patient is having multiple episodes of burgundy colored stools over the last 24 hours, and his hemoglobin did drift down to 11.0 from 11.5 yesterday. His initial hemoglobin on admission was 14.0. Clearly the patient is actively bleeding/oozing and there has been a steady decline in his hemoglobin since admission. Not to mention the patient has clinically obvious GI bleeding with burgundy stools almost on a daily basis. Hence I have instructed the nurses to contact gastroenterology again, and consider endoscopy on this patient. Reevaluated today on 02/24/2019, patient continues to have intermittent episodes of burgundy colored stools, his hemoglobin dropped down to 7.4 today, and he is to receive 1 unit of packed RBCs, scheduled to undergo further GI workup including EGD and colonoscopy today. Patient denies any blurred vision, denies any syncope, denies any lightheadedness. Denies any abdominal pain. On 02/25/2019 patient seen in follow-up in the intensive care unit. He is awake and alert, resting comfortably in bed, a little groggy today, but no acute complaints, no difficulty breathing, no chest pain, room air pulse ox is 96%, hemodynamically stable, afebrile, he is status post EGD, with the findings of a hiatal hernia, gastritis and duodenitis, underwent epinephrine injection, and gold probe cautery and clips placement. No episodes of GI bleeding overnight, today's labs have been reviewed, showing white blood cell count of 19.7, hemoglobin of 7.8, platelet count of 172, sodium is 138, potassium is 4.0, chloride is 112, CO2 is 23, B1 is 24, creatinine is 1.06. Lung sounds are clear, no signs are stable. Gaffney catheter is in, patient is nonoliguric, IV 0.9 normal saline at a rate of 75 ML per hour. Patient has received 1 unit of packed red blood cells this admission. Nothing by mouth except for ice chips. On 02/26/2019 patient seen in follow-up in the intensive care unit, he is awake and alert, less drowsy at today's exam, denies any acute distress, no shortness of breath, no chest pain, no abdominal pain, his last stool was yesterday in the morning, small, with mucus and small amount of blood, no further bloody bowel movements, no melena, no hematemesis, no nausea, no vomiting, patient is tolerating clear liquids. Room air pulse ox is 98%, afebrile, hemodynamically stable, 0.9 normal saline at a rate of 75 ML per hour, no other drips or IVs. Today's hemoglobin is 6.7, patient will receive another unit of blood, for a total of 2 units of packed red blood cells this admission. His labs showed white blood cell count of 10.9, hemoglobin of 6.7, platelet count is 179, sodium is 136, potassium 3.7, chloride is 109, CO2 is 22, BUN is 15, creatinine 0.86. Lung sounds are clear, no rhonchi, no wheezing, no further episodes of hypoglycemia. We will increase activity, will encouraged patient to sit up in the chair today. No acute events overnight. he is stable to go out of the intensive care unit today. 2 medical surgical floor. Objective - Vital Signs Vital signs: Vital Signs Temp 98.8 F 02/26/19 07:23 Pulse 73 02/26/19 08:00 Resp 21 02/26/19 08:00 BP 130/58 02/26/19 08:00 Pulse Ox 98 02/26/19 08:00 Intake & Output 02/25/19 02/26/19 02/26/19 18:59 06:59 18:59 Intake Total 1550 900 0 Output Total 1405 920 220 Balance 145 -20 -220 Weight 107 kg 109 kg Intake: IV 900 900 0 Sodium Chloride 0.9% 1, 900 900 0 000 ml @ 75 mls/hr IV . [id number] [facility] Rx#:[id number] Oral 650 Blood Product 0 Rc As-1 Unit 0 [id number] Output: Urine 805 920 220 Stool 600 Other: Voiding Method Indwelling Catheter Indwelling Catheter # Voids 1 - Exam GENERAL EXAM: Alert, pleasant, 78-year-old white male, comfortable in no apparent distress. HEAD: Normocephalic/atraumatic. EYES: Normal reaction of pupils, equal size. Conjunctiva pink, sclera white. NOSE: Clear with pink turbinates. THROAT: No erythema or exudates. NECK: No masses, no JVD, no thyroid enlargement, no adenopathy. CHEST: No chest wall deformity. Symmetrical expansion. LUNGS: Equal air entry with no crackles, wheeze, rhonchi or dullness. CVS: Regular rate and rhythm, normal S1 and S2, no gallops, no murmurs, no rubs ABDOMEN: Soft, nontender. No hepatosplenomegaly, normal bowel sounds, no guarding or rigidity. EXTREMITIES: No clubbing, no edema, no cyanosis, 2+ pulses and upper and lower extremities. MUSCULOSKELETAL: Muscle strength and tone normal. SPINE: No scoliosis or deformity SKIN: No rashes CENTRAL NERVOUS SYSTEM: Alert and oriented -3. No focal deficits, tone is normal in all 4 extremities. PSYCHIATRIC: Alert and oriented -3. Appropriate affect. Intact judgment and insight. - Labs CBC & Chem 7: 02/26/19 04:47 02/26/19 04:47 Labs: Abnormal Lab Results - Last 24 Hours (Table) 02/24/19 02/25/19 02/25/19 Range/Units 08:10 11:39 11:52 WBC (3.8-10.6) k/uL RBC (4.30-5.90) m/uL Hgb (13.0-17.5) gm/dL Hct (39.0-53.0) % Neutrophils # (1.3-7.7) k/uL Sodium (137-145) mmol/L Chloride (98-107) mmol/L Glucose (74-99) mg/dL POC Glucose (mg/dL) 65 L 61 L (75-99) mg/dL Calcium (8.4-10.2) mg/dL Crossmatch See Detail 02/25/19 02/25/19 02/25/19 Range/Units 12:06 17:59 20:50 WBC (3.8-10.6) k/uL RBC (4.30-5.90) m/uL Hgb (13.0-17.5) gm/dL Hct (39.0-53.0) % Neutrophils # (1.3-7.7) k/uL Sodium (137-145) mmol/L Chloride (98-107) mmol/L Glucose (74-99) mg/dL POC Glucose (mg/dL) 65 L 259 H 148 H (75-99) mg/dL Calcium (8.4-10.2) mg/dL Crossmatch 02/25/19 02/26/19 02/26/19 Range/Units 23:39 04:47 04:47 WBC 10.9 H (3.8-10.6) k/uL RBC 2.22 L (4.30-5.90) m/uL Hgb 6.7 L* (13.0-17.5) gm/dL Hct 20.2 L (39.0-53.0) % Neutrophils # 8.0 H (1.3-7.7) k/uL Sodium 136 L (137-145) mmol/L Chloride 109 H (98-107) mmol/L Glucose 111 H (74-99) mg/dL POC Glucose (mg/dL) 102 H (75-99) mg/dL Calcium 7.2 L (8.4-10.2) mg/dL Crossmatch 02/26/19 02/26/19 Range/Units 06:16 07:07 WBC (3.8-10.6) k/uL RBC (4.30-5.90) m/uL Hgb (13.0-17.5) gm/dL Hct (39.0-53.0) % Neutrophils # (1.3-7.7) k/uL Sodium (137-145) mmol/L Chloride (98-107) mmol/L Glucose (74-99) mg/dL POC Glucose (mg/dL) 131 H 147 H (75-99) mg/dL Calcium (8.4-10.2) mg/dL Crossmatch Assessment and Plan Plan: Assessment: 1 acute GI bleeding, exact source in nature is not clear,patient continues to have active bleeding, hence he is scheduled for blood transfusion today, EGD, and colonoscopy today. 2 acute syncopal episode secondary to GI bleeding 3 type 2 diabetes, on insulin 4 recent fall but no injury 5 history of hypertension 6 history of Parkinson's disease and Alzheimer's disease on treatment 7 hypothyroidism 8 episode of hypoglycemia, related to status nothing by mouth, and long-acting insulin has been adjusted. No hypoglycemic events in the last 24 hours, patient is tolerating clear liquid diet Plan: Continue current plan of treatment, patient will receive 1 unit of packed red blood cells this morning hemoglobin is 6.7, hemodynamically remains stable, no, but shortness of breath or chest pain. No ongoing bleeding. Increase activity, encourage the patient to sit up in the chair. No hypoglycemic events overnight, patient is tolerating clear liquid diet, from pulmonary/critical care standpoint patient is stable to go out to the medical surgical floor. Continue to follow. I performed a history & physical examination of the patient and discussed their management with my nurse practitioner, Genie Kulkarni. I reviewed the nurse practitioner's note and agree with the documented findings and plan of care. Lung sounds are positive for clear lung sounds. The findings and the impression was discussed with the patient. I attest to the documentation by the nurse practitioner. Time with Patient: Less than 30
[2019-02-26] MEDS: METOPROLOL SUCCINATE (ER) 25 MG TAB.ER.24H PO SCH (09:04)
[2019-02-26] MEDS: FOLIC ACID 1 MG TAB PO SCH (09:04)
[2019-02-26] MEDS: LISINOPRIL 10 MG TAB PO SCH (09:04)
[2019-02-26] MEDS: MAGNESIUM OXIDE 400 MG TAB PO SCH (09:04)
[2019-02-26] MEDS: CYANOCOBALAMIN 500 MCG TAB PO SCH ×2 (09:09→20:33)
[2019-02-26] MEDS: VENLAFAXINE HCL ER 75 MG CAP PO SCH (09:10)
[2019-02-26] MEDS: PANTOPRAZOLE 40 MG/10 ML VIAL IV SCH ×2 (09:10→20:33)
[2019-02-26] MEDS: DONEPEZIL 10 MG TAB PO SCH (09:10)
[2019-02-26] MEDS: VENLAFAXINE HCL ER 150 MG CAP PO SCH (09:10)
--- NOTE | 2019-02-26 11:15 | P.PN ---
Subjective Progress Note Date: 02/26/19 Principal diagnosis: GI bleed duodenal ulcer Denies hematemesis hematochezia melena. Hemoglobin 6.7 received 1 unit of blood this morning. Denies abdominal pain. Afebrile. Tolerating clears. Objective - Vital Signs Vital signs: Vital Signs Temp 98.1 F 02/26/19 08:00 Pulse 71 02/26/19 11:00 Resp 18 02/26/19 11:00 BP 93/56 02/26/19 11:00 Pulse Ox 97 02/26/19 11:00 Intake & Output 02/25/19 02/26/19 02/26/19 18:59 06:59 18:59 Intake Total 1550 900 560 Output Total 1405 920 330 Balance 145 -20 230 Weight 107 kg 109 kg Intake: IV 900 900 0 Sodium Chloride 0.9% 1, 900 900 0 000 ml @ 75 mls/hr IV . [id number] [facility] Rx#:[id number] Oral 650 250 Blood Product 0 310 Rc As-1 Unit 0 310 [id number] Output: Urine 805 920 330 Stool 600 Other: Voiding Method Indwelling Catheter Indwelling Catheter Indwelling Catheter # Voids 1 - Exam General appearance: The patient is alert, oriented, in no acute distress. HET: Head is normocephalic and atraumatic. Pupils are equal and reactive. Oropharynx is clear without lesions. Neck: Supple without lymphadenopathy. Trachea midline. Heart: S1 S2. Regular rate and rhythm. Lungs: No crackles or wheezes are heard. Abdomen: Soft, nontender, nondistended with bowel sounds. No peritoneal signs. No palpable organomegaly or masses. Extremities: Normal skin color and turgor. No cyanosis, rash, ulceration, clubbing, or edema. Radial and pedal pulses are 2/4 bilaterally. Neurological: No focal deficits. Strength and sensation are grossly intact. - Labs CBC & Chem 7: 02/26/19 04:47 02/26/19 04:47 Labs: Abnormal Lab Results - Last 24 Hours (Table) 02/24/19 02/25/19 02/25/19 Range/Units 08:10 11:39 11:52 WBC (3.8-10.6) k/uL RBC (4.30-5.90) m/uL Hgb (13.0-17.5) gm/dL Hct (39.0-53.0) % Neutrophils # (1.3-7.7) k/uL Sodium (137-145) mmol/L Chloride (98-107) mmol/L Glucose (74-99) mg/dL POC Glucose (mg/dL) 65 L 61 L (75-99) mg/dL Calcium (8.4-10.2) mg/dL Crossmatch See Detail 02/25/19 02/25/19 02/25/19 Range/Units 12:06 17:59 20:50 WBC (3.8-10.6) k/uL RBC (4.30-5.90) m/uL Hgb (13.0-17.5) gm/dL Hct (39.0-53.0) % Neutrophils # (1.3-7.7) k/uL Sodium (137-145) mmol/L Chloride (98-107) mmol/L Glucose (74-99) mg/dL POC Glucose (mg/dL) 65 L 259 H 148 H (75-99) mg/dL Calcium (8.4-10.2) mg/dL Crossmatch 02/25/19 02/26/19 02/26/19 Range/Units 23:39 04:47 04:47 WBC 10.9 H (3.8-10.6) k/uL RBC 2.22 L (4.30-5.90) m/uL Hgb 6.7 L* (13.0-17.5) gm/dL Hct 20.2 L (39.0-53.0) % Neutrophils # 8.0 H (1.3-7.7) k/uL Sodium 136 L (137-145) mmol/L Chloride 109 H (98-107) mmol/L Glucose 111 H (74-99) mg/dL POC Glucose (mg/dL) 102 H (75-99) mg/dL Calcium 7.2 L (8.4-10.2) mg/dL Crossmatch 02/26/19 02/26/19 Range/Units 06:16 07:07 WBC (3.8-10.6) k/uL RBC (4.30-5.90) m/uL Hgb (13.0-17.5) gm/dL Hct (39.0-53.0) % Neutrophils # (1.3-7.7) k/uL Sodium (137-145) mmol/L Chloride (98-107) mmol/L Glucose (74-99) mg/dL POC Glucose (mg/dL) 131 H 147 H (75-99) mg/dL Calcium (8.4-10.2) mg/dL Crossmatch Assessment and Plan (1) Duodenal ulcer Current Visit: Yes Status: Acute Code(s): K26.9 - DUODENAL ULCER, UNSP ACUTE OR CHRONIC, W/O HEMOR OR PERF SNOMED Code(s): 34841791 (2) Acute blood loss anemia Current Visit: Yes Status: Acute Code(s): D62 - ACUTE POSTHEMORRHAGIC ANEMIA SNOMED Code(s): 708125386 (3) GI bleed Current Visit: Yes Status: Acute Code(s): K92.2 - GASTROINTESTINAL HEMORRHAGE, UNSPECIFIED SNOMED Code(s): 08117015 Plan: 1. Continue clear liquid diet with ensure clear supplements. CBC pending. Protonix 40 mg twice daily. Assessment and plan a care discussed with Dr. Alcantara
[2019-02-26 11:43] LABS: Glucose,Whole Blood 252 mg/dL (75-99)
[2019-02-26 12:28] LABS: HCT 24.9 % (39.0-53.0); MCH 30.8 pg (25.0-35.0); MCHC 34.5 g/dL (31.0-37.0); MCV 89.4 fL (80.0-100.0); Mean Platelet Volume 8.3; Platelet Count 177 k/uL (150-450); RBC 2.78 m/uL (4.30-5.90); WBC 11.3 k/uL (3.8-10.6)
[2019-02-26 12:33] LABS: HGB 8.6 gm/dL (13.0-17.5)
[2019-02-26] MEDS ORDERED: POTASSIUM CHLORIDE ER 20 MEQ TAB.ER PO SCH (16:00)
[2019-02-26 17:00] LABS: Glucose,Whole Blood 287 mg/dL (75-99)
[2019-02-26 20:28] LABS: Glucose,Whole Blood 267 mg/dL (75-99)
[2019-02-26] MEDS: INSULIN DETEMIR (LEVEMIR) 100 UNIT/ML SYR SQ SCH (20:33)
--- NOTE | 2019-02-26 21:16 | P.PN ---
Subjective Progress Note Date: 02/26/19 78-year-old male one of Dr. Cruz's patient with past medical history of Parkinson disease, diabetes, hypertension, obstructive sleep apnea and hypothyroidism who reported that he had syncopal episode when he went to the bathroom felt very fainted lightheaded and he passed out his found him on the ground had the very large bloody bowel movement the same time with complete blood according to her after he was complaining of mild abdominal discomfort. Patient was in the emergency room 2 days earlier with abdominal pain and no major finding at the time. His hemoglobin still elevated patient is an active gastrointestinal bleed. He had previous history of GI bleed in 2016 was hospitalized and had both scope done by Dr. Le at the time. Patient will be admitted to the ICU keep doing CBC every few hours to his clearance stable hemodynamically and might be scheduled for an EGD tomorrow morning if his stable. 02/22 patient examined bedside continue to endorse nausea and had[place]undi color stool today. Vitals are stable with a temp of 90 7.9R respiratory rate of 17 pulse 65 blood pressure 171/86. Not currently nothing by mouth patient did have breakfast this morning with clear liquid diet. Gastric evaluation pending continue patient to be nothing by mouth. Continue lisinopril and metoprolol for blood pressure control. 2 hydralazine 10 mg every 6 hours when necessary for systolic more than 160 02/23: Patient was examined at the bedside. is at the bedside. Patient continues to complain of nausea and tenderness to the epigastric area. Patient continues to have maroon colored stool. Denies any vomiting initial hemoglobin upon admission was 14.0 hemoglobin continues to drift today's hemoglobin 11.0. Patient continues to have maroon-colored stools throughout the evening. Patient was seen by GI, possible endoscopic evaluation was for both outpatient. Vital signs remained stable. 02/24: Patient c\o chest pain, troponin negative, morphine given. Blood pressure increased patient a longer has chest pain at this time. Prep completed for GI study. Patient continues to have maroon-colored stool. Hemoglobin dropped to 7. 4 in the evening. We'll transfuse 1 unit of packed red blood cells. Patient still complains of epigastric pain. Denies any nausea or vomiting at this time. is at the bedside and discussed plan of care. Awaiting GI workup. 02/25: Patient underwent EGD yesterday that showed a large duodenal bulb ulcer that was injected with epinephrine, no active bleeding at this point in time he would be started on clear liquid diet, he would be kept in ICU for another 1-2 days. Colonoscopy was aborted as the patient had a lot of black old blood in the transverse colon . 02/26: Patient is sitting up in bed he feels better today his hemoglobin is up post transfusion, he denies any chest pain, shortness breath, he denies any ab dominal pain, he continues to have some black tarry stool, his vital signs are stable, and he is maintained on clear liquid diet for another 24 hours. Review of systems Constitutional: Denies chills, Denies fever, Denies lethargy, Denies malaise, Denies poor appetite, Denies weakness, Denies weight loss Eyes: denies decreased vision, denies diplopia, denies discharge, denies pain Ears: deny: decreased hearing Ears, nose, mouth and throat: Denies dental pain, Denies headache, Denies nasal discharge, Denies nose pain Cardiovascular: Denies chest pain, Denies decreased exercise tolerance, Denies edema, Denies high blood pressure, Denies irregular heart beat, Denies palpitations, Denies paroxysmal nocturnal dyspnea, Denies rapid heart beat, Denies shortness of breath Respiratory: Denies congestion, Denies cough, Denies cough with sputum, Denies dyspnea, Denies home oxygen, Denies wheezing Gastrointestinal: Positive abdominal pain right lower abdominal with red color stool,, Denies coffee ground emesis, Denies early satiety, Denies excessive gas, Denies heartburn, Denies hematemesis, Denies hematochezia, Denies loss of appetite, positive for nausea, Denies vomiting Genitourinary: Denies dysuria, Denies flank pain, Denies kidney stones, Denies menorrhagia, Denies urgency, Denies urinary frequency Objective - Vital Signs Vital signs: Vital Signs Temp 98.8 F 02/26/19 07:23 Pulse 73 02/26/19 08:00 Resp 21 02/26/19 08:00 BP 130/58 02/26/19 08:00 Pulse Ox 98 02/26/19 08:00 Intake & Output 06/24/19 06/25/19 06/25/19 18:59 06:59 18:59 Intake Total 1550 900 0 Output Total 1405 920 220 Balance 145 -20 -220 Weight 107 kg 109 kg Intake: IV 900 900 0 Sodium Chloride 0.9% 1, 900 900 0 000 ml @ 75 mls/hr IV . [id number] [facility] Rx#:[id number] Oral 650 Blood Product 0 Rc As-1 Unit 0 [id number] Output: Urine 805 920 220 Stool 600 Other: Voiding Method Indwelling Catheter Indwelling Catheter # Voids 1 - Exam - Exam General Appearance: Alert, cooperative, no distress, appears stated age. Neck HEENT: Supple, no lymphadenopathy, no thyroid enlargement, no carotid bruits. Lungs: Clear to auscultation without crackles or wheezes no rhonchi, no deformity. Chest Wall: Chest wall normal expansion with deep inspiration no tenderness and no deformity was found on exam, no costochondral pain or discomfort. Heart: Regular rate and rhythm, S1, S2 normal, no murmur, rub or gallop. Back: Symmetric, no curvature, ROM normal, no CVA tenderness. Abdomen: Soft, epigastric tenderness, no rebound or rigidity, no hepatosplenomegaly. Extremities: Extremities normal, atraumatic, no cyanosis or edema. Pulses: 2+ and symmetric. Skin: Skin color, texture, tugor normal, no rashes or lesions. Neurologic: Alert oriented x3 cranial nerves II through XII intact, resting tremor noted no motor deficit, strength equal bilaterally - Labs CBC & Chem 7: 02/26/19 11:55 02/26/19 04:47 Labs: Abnormal Lab Results - Last 24 Hours (Table) 02/24/19 02/25/19 02/25/19 Range/Units 08:10 11:39 11:52 WBC (3.8-10.6) k/uL RBC (4.30-5.90) m/uL Hgb (13.0-17.5) gm/dL Hct (39.0-53.0) % Neutrophils # (1.3-7.7) k/uL Sodium (137-145) mmol/L Chloride (98-107) mmol/L Glucose (74-99) mg/dL POC Glucose (mg/dL) 65 L 61 L (75-99) mg/dL Calcium (8.4-10.2) mg/dL Crossmatch See Detail 02/25/19 02/25/19 02/25/19 Range/Units 12:06 17:59 20:50 WBC (3.8-10.6) k/uL RBC (4.30-5.90) m/uL Hgb (13.0-17.5) gm/dL Hct (39.0-53.0) % Neutrophils # (1.3-7.7) k/uL Sodium (137-145) mmol/L Chloride (98-107) mmol/L Glucose (74-99) mg/dL POC Glucose (mg/dL) 65 L 259 H 148 H (75-99) mg/dL Calcium (8.4-10.2) mg/dL Crossmatch 02/25/19 02/26/19 02/26/19 Range/Units 23:39 04:47 04:47 WBC 10.9 H (3.8-10.6) k/uL RBC 2.22 L (4.30-5.90) m/uL Hgb 6.7 L* (13.0-17.5) gm/dL Hct 20.2 L (39.0-53.0) % Neutrophils # 8.0 H (1.3-7.7) k/uL Sodium 136 L (137-145) mmol/L Chloride 109 H (98-107) mmol/L Glucose 111 H (74-99) mg/dL POC Glucose (mg/dL) 102 H (75-99) mg/dL Calcium 7.2 L (8.4-10.2) mg/dL Crossmatch 02/26/19 02/26/19 Range/Units 06:16 07:07 WBC (3.8-10.6) k/uL RBC (4.30-5.90) m/uL Hgb (13.0-17.5) gm/dL Hct (39.0-53.0) % Neutrophils # (1.3-7.7) k/uL Sodium (137-145) mmol/L Chloride (98-107) mmol/L Glucose (74-99) mg/dL POC Glucose (mg/dL) 131 H 147 H (75-99) mg/dL Calcium (8.4-10.2) mg/dL Crossmatch Assessment and Plan Assessment: Assessment and Plan Plan: 1. acute gastrointestinal bleed S/P EGD that showed large duodena bulb ulcer status post epinephrine injection, and incomplete colonoscopy due to large amount of blood covering the mucosa patient was readmitted intensive care unit, we'll continue to monitor the patient very closely continue with PPI, continue with clear liquid diet. 2. syncopal episode: Most likely from the severity of the GI bleed as causing the blood pressure to be slightly bit low with low volume, continue fluid resuscitation no need for blood transfusion unless hemoglobin dropped below at least 80 g. Continue current treatment management for now. 3. recent fall, no injury mild bruise on the right leg continue topical care. 4. type 2 diabetes on insulin: Patient has been on to Trisiba 32 unit daily along with Humalog 15 units before meals meals continue Accu-Chek sliding scales coverage. 5. Chest pain. troponin ordered - 0.012, continue to monitor CBC, morphine 2 mg when necessary 6. Hypertension: Continue patient on lisinopril 10 mg a day along with metoprolol XL 25 mg daily. Hydralazine 10 IV every 6 as needed for systolic more than 160 7. Parkinson disease: Patient is on carbidopa levodopa resume medication for now. 8. Alzheimer disease: Patient is on donepezil 10 mg daily. 9. chronic depression: Patient is on Effexor or ER total of 225 mg daily. Discussed possible need for psychiatric consult an outpatient setting. 10. hypothyroidism: Continue patient on levothyroxine 100 g daily. 11. DVT prophylaxis: Continue knee-high THEA hose and Venodyne boots for now with early mobilization. 12. GI prophylaxis: Patient will be on pantoprazole IV twice a day. CODE STATUS: Full code.
[2019-02-27 06:37] LABS: Glucose,Whole Blood 143 mg/dL (75-99)
[2019-02-27] MEDS: LEVOTHYROXINE 100 MCG TAB PO SCH (06:50)
[2019-02-27] MEDS: INSULIN ASPART (NovoLOG) 100 UNIT/ML VIAL SQ SCH ×4 (06:50→20:57)
[2019-02-27] MEDS: CARBIDOPA-LEVODOPA 25-100 MG 1 EACH TAB PO SCH ×3 (06:52→17:46)
[2019-02-27 07:31] LABS: HCT 24.7 % (39.0-53.0); HGB 8.2 gm/dL (13.0-17.5); MCHC 33.4 g/dL (31.0-37.0); MCV 89.9 fL (80.0-100.0); Mean Platelet Volume 7.3; Platelet Count 192 k/uL (150-450); Poikilocytosis Slight; RBC 2.75 m/uL (4.30-5.90); RDW 14.6 % (11.5-15.5); WBC 10.2 k/uL (3.8-10.6)
[2019-02-27 07:47] LABS: African American GFR (CKD) >90 (>60 ml/min/1.73 sqM); Anion Gap 6 mmol/L; Blood Urea Nitrogen 11 mg/dL (9-20); Calcium 7.8 mg/dL (8.4-10.2); Carbon Dioxide 25 mmol/L (22-30); Chloride 106 mmol/L (98-107); Glucose 133 mg/dL (74-99); Potassium 3.8 mmol/L (3.5-5.1); Sodium 137 mmol/L (137-145)
[2019-02-27] MEDS: VENLAFAXINE HCL ER 75 MG CAP PO SCH (08:15)
[2019-02-27] MEDS: VENLAFAXINE HCL ER 150 MG CAP PO SCH (08:15)
[2019-02-27] MEDS: CYANOCOBALAMIN 500 MCG TAB PO SCH ×2 (08:15→20:58)
[2019-02-27] MEDS: MAGNESIUM OXIDE 400 MG TAB PO SCH (08:15)
[2019-02-27] MEDS: LISINOPRIL 10 MG TAB PO SCH (08:15)
[2019-02-27] MEDS: FOLIC ACID 1 MG TAB PO SCH (08:15)
[2019-02-27] MEDS: METOPROLOL SUCCINATE (ER) 25 MG TAB.ER.24H PO SCH (08:15)
[2019-02-27] MEDS: DONEPEZIL 10 MG TAB PO SCH (08:16)
[2019-02-27] MEDS: PANTOPRAZOLE 40 MG/10 ML VIAL IV SCH ×2 (08:16→20:58)
--- NOTE | 2019-02-27 09:18 | P.PN ---
Subjective Progress Note Date: 02/27/19 Principal diagnosis: Acute GI bleeding This is a very pleasant 78-year-old gentleman who follows with Dr. Cruz as his primary care physician. He has a history of Parkinson's disease, depression, hypothyroidism, diabetes mellitus, hypertension, previous GI bleed. He had undergone EGD with biopsy in March 2018. There was a small sliding hiatal hernia with no obvious esophagitis or complicated reflux disease. There was gastritis and duodenitis with duodenal bulb ulcer not actively bleeding at that time. Biopsies were negative for malignancy. No pathology. Early this morning he was up in the bathroom and had a large amount of lea stool and a syncopal episode. His heard him fall. He was brought here by EMS for the same. He did sustain minor injuries to his right lower extremity right elbow. He had some neck pain. Multiple x-rays revealed no fractures. Chest x-ray showed no acute pulmonary process. EKG shows normal sinus rhythm. Initial hemoglobin 14.0. White count 11.8. Creatinine 1.09. He is seen in consultation in the intensive care unit. Awake and alert in no acute distress. Hemodynamically stable. Not requiring pressors at this point. He has been initiated on 0.9 normal saline at 75 ML's per hour and Protonix 40 mg IV twice a day. Patient was reevaluated today on 02/22/2019, had minimal amount of burgundy color stool earlier today. However the patient is stable hemodynamically, does not feel lightheaded, patient's hemoglobin is stable. Hemoglobin today is 12.5. Yet to be seen by gastroenterology. And uncertain whether the patient will need to have EGD at this point in the meantime I will go ahead and recommend that we keep him nothing by mouth just in case EGD will be scheduled to be done today. And considering the patient is hemodynamically stable, and no significant the bleeding is noted we can potentially transfer the patient out of the ICU to a monitor bed. Reevaluated today on 02/23/2019, patient remains in the ICU, he was seen by gastroenterology yesterday, and basically recommended conservative measures. However the patient is having multiple episodes of burgundy colored stools over the last 24 hours, and his hemoglobin did drift down to 11.0 from 11.5 yesterday. His initial hemoglobin on admission was 14.0. Clearly the patient is actively bleeding/oozing and there has been a steady decline in his hemoglobin since admission. Not to mention the patient has clinically obvious GI bleeding with burgundy stools almost on a daily basis. Hence I have instructed the nurses to contact gastroenterology again, and consider endoscopy on this patient. Reevaluated today on 02/24/2019, patient continues to have intermittent episodes of burgundy colored stools, his hemoglobin dropped down to 7.4 today, and he is to receive 1 unit of packed RBCs, scheduled to undergo further GI workup including EGD and colonoscopy today. Patient denies any blurred vision, denies any syncope, denies any lightheadedness. Denies any abdominal pain. On 02/25/2019 patient seen in follow-up in the intensive care unit. He is awake and alert, resting comfortably in bed, a little groggy today, but no acute complaints, no difficulty breathing, no chest pain, room air pulse ox is 96%, hemodynamically stable, afebrile, he is status post EGD, with the findings of a hiatal hernia, gastritis and duodenitis, underwent epinephrine injection, and gold probe cautery and clips placement. No episodes of GI bleeding overnight, today's labs have been reviewed, showing white blood cell count of 19.7, hemoglobin of 7.8, platelet count of 172, sodium is 138, potassium is 4.0, chloride is 112, CO2 is 23, B1 is 24, creatinine is 1.06. Lung sounds are clear, no signs are stable. Gaffney catheter is in, patient is nonoliguric, IV 0.9 normal saline at a rate of 75 ML per hour. Patient has received 1 unit of packed red blood cells this admission. Nothing by mouth except for ice chips. On 02/26/2019 patient seen in follow-up in the intensive care unit, he is awake and alert, less drowsy at today's exam, denies any acute distress, no shortness of breath, no chest pain, no abdominal pain, his last stool was yesterday in the morning, small, with mucus and small amount of blood, no further bloody bowel movements, no melena, no hematemesis, no nausea, no vomiting, patient is tolerating clear liquids. Room air pulse ox is 98%, afebrile, hemodynamically stable, 0.9 normal saline at a rate of 75 ML per hour, no other drips or IVs. Today's hemoglobin is 6.7, patient will receive another unit of blood, for a total of 2 units of packed red blood cells this admission. His labs showed white blood cell count of 10.9, hemoglobin of 6.7, platelet count is 179, sodium is 136, potassium 3.7, chloride is 109, CO2 is 22, BUN is 15, creatinine 0.86. Lung sounds are clear, no rhonchi, no wheezing, no further episodes of hypoglycemia. We will increase activity, will encouraged patient to sit up in the chair today. No acute events overnight. he is stable to go out of the intensive care unit today. 2 medical surgical floor. On 02/27/2019 patient seen in follow-up in the intensive care unit, she is calm and comfortable, resting in bed, currently on room air, no running IVs. Patient had a small maroon colored bowel movement last night, no ongoing bleeding. Hemodynamically stable. Afebrile. Received a total of 2 units of packed red blood cells this admission, this morning's hemoglobin is 8.2, with blood cell count is 10.2, lites and renal profile are within normal limits, no acute events overnight, elevating clear liquid diet. No nausea or vomiting. Awaiting a bed on medical surgical floor. It up in the chair and sat up in the chair for 3 hours yesterday, no complaints of chest pain or shortness of breath, lung sounds are clear, no rhonchi, no wheezing Objective - Vital Signs Vital signs: Vital Signs Temp 98.5 F 02/26/19 20:00 Pulse 59 L 02/27/19 02:00 Resp 19 02/27/19 02:00 BP 138/76 02/27/19 02:00 Pulse Ox 98 02/27/19 02:00 Intake & Output 02/26/19 02/27/19 02/27/19 18:59 06:59 18:59 Intake Total 1060 Output Total 890 1030 Balance 170 -1030 Weight 110.7 kg Intake: IV 0 Sodium Chloride 0.9% 1, 0 000 ml @ 75 mls/hr IV . [id number] [facility] Rx#:[id number] Oral 750 Blood Product 310 Rc As-1 Unit 310 [id number] Output: Urine 890 1030 Other: Voiding Method Indwelling Catheter Indwelling Catheter # Bowel Movements 1 - Exam GENERAL EXAM: Alert, pleasant, 78-year-old white male, comfortable in no apparent distress. HEAD: Normocephalic/atraumatic. EYES: Normal reaction of pupils, equal size. Conjunctiva pink, sclera white. NOSE: Clear with pink turbinates. THROAT: No erythema or exudates. NECK: No masses, no JVD, no thyroid enlargement, no adenopathy. CHEST: No chest wall deformity. Symmetrical expansion. LUNGS: Equal air entry with no crackles, wheeze, rhonchi or dullness. CVS: Regular rate and rhythm, normal S1 and S2, no gallops, no murmurs, no rubs ABDOMEN: Soft, nontender. No hepatosplenomegaly, normal bowel sounds, no guarding or rigidity. EXTREMITIES: No clubbing, no edema, no cyanosis, 2+ pulses and upper and lower extremities. MUSCULOSKELETAL: Muscle strength and tone normal. SPINE: No scoliosis or deformity SKIN: No rashes CENTRAL NERVOUS SYSTEM: Alert and oriented -3. No focal deficits, tone is normal in all 4 extremities. PSYCHIATRIC: Alert and oriented -3. Appropriate affect. Intact judgment and insight. - Labs CBC & Chem 7: 02/27/19 07:03 02/27/19 07:03 Labs: Abnormal Lab Results - Last 24 Hours (Table) 02/24/19 02/26/19 02/26/19 Range/Units 08:10 11:41 11:55 WBC 11.3 H (3.8-10.6) k/uL RBC 2.78 L (4.30-5.90) m/uL Hgb 8.6 L D (13.0-17.5) gm/dL Hct 24.9 L (39.0-53.0) % Glucose (74-99) mg/dL POC Glucose (mg/dL) 252 H (75-99) mg/dL Calcium (8.4-10.2) mg/dL Crossmatch See Detail 02/26/19 02/26/19 02/27/19 Range/Units 16:57 20:27 06:35 WBC (3.8-10.6) k/uL RBC (4.30-5.90) m/uL Hgb (13.0-17.5) gm/dL Hct (39.0-53.0) % Glucose (74-99) mg/dL POC Glucose (mg/dL) 287 H 267 H 143 H (75-99) mg/dL Calcium (8.4-10.2) mg/dL Crossmatch 02/27/19 02/27/19 Range/Units 07:03 07:03 WBC (3.8-10.6) k/uL RBC 2.75 L (4.30-5.90) m/uL Hgb 8.2 L (13.0-17.5) gm/dL Hct 24.7 L (39.0-53.0) % Glucose 133 H (74-99) mg/dL POC Glucose (mg/dL) (75-99) mg/dL Calcium 7.8 L (8.4-10.2) mg/dL Crossmatch Assessment and Plan Plan: Assessment: 1 acute GI bleeding, exact source in nature is not clear,patient continues to have active bleeding, hence he is scheduled for blood transfusion today, EGD, and colonoscopy today. 2 acute syncopal episode secondary to GI bleeding 3 type 2 diabetes, on insulin 4 recent fall but no injury 5 history of hypertension 6 history of Parkinson's disease and Alzheimer's disease on treatment 7 hypothyroidism 8 episode of hypoglycemia, related to status nothing by mouth, and long-acting insulin has been adjusted. No hypoglycemic events in the last 24 hours, patient is tolerating clear liquid diet Plan: No signs of ongoing bleeding, hemodynamically stable, no shortness of breath or chest pain, this morning's hemoglobin is 8.2, increase activity as tolerated, patient is tolerating clear liquid diet. From pulmonary/critical care perspective patient is stable to be transferred from the ICU to a regular medical surgical floor. I performed a history & physical examination of the patient and discussed their management with my nurse practitioner, Genie Kulkarni. I reviewed the nurse pr actitioner's note and agree with the documented findings and plan of care. Lung sounds are positive for clear lung sounds. The findings and the impression was discussed with the patient. I attest to the documentation by the nurse practitioner. Time with Patient: Less than 30
--- NOTE | 2019-02-27 10:38 | P.PN ---
Subjective Progress Note Date: 02/27/19 Principal diagnosis: GI bleed duodenal ulcer Denies hematemesis hematochezia or melena. BM x 1 today darker old residual blood. Hemoglobin 8.2. Denies abdominal pain. Afebrile. Tolerating clears. Objective - Vital Signs Vital signs: Vital Signs Temp 98.4 F 02/27/19 08:00 Pulse 64 02/27/19 10:00 Resp 16 02/27/19 10:00 BP 127/58 02/27/19 10:00 Pulse Ox 99 02/27/19 10:00 Intake & Output 02/26/19 02/27/19 02/27/19 18:59 06:59 18:59 Intake Total 1060 Output Total 890 1030 535 Balance 170 -1030 -535 Weight 110.7 kg Intake: IV 0 Sodium Chloride 0.9% 1, 0 000 ml @ 75 mls/hr IV . [id number] [facility] Rx#:[id number] Oral 750 Blood Product 310 Rc As-1 Unit 310 [id number] Output: Urine 890 1030 535 Other: Voiding Method Indwelling Catheter Indwelling Catheter Indwelling Catheter # Bowel Movements 1 - Exam General appearance: The patient is alert, oriented, in no acute distress. HET: Head is normocephalic and atraumatic. Pupils are equal and reactive. Oropharynx is clear without lesions. Neck: Supple without lymphadenopathy. Trachea midline. Heart: S1 S2. Regular rate and rhythm. Lungs: No crackles or wheezes are heard. Abdomen: Soft, nontender, nondistended with bowel sounds. No peritoneal signs. No palpable organomegaly or masses. Extremities: Normal skin color and turgor. No cyanosis, rash, ulceration, clubbing, or edema. Radial and pedal pulses are 2/4 bilaterally. Neurological: No focal deficits. Strength and sensation are grossly intact. - Labs CBC & Chem 7: 02/27/19 07:03 02/27/19 07:03 Labs: Abnormal Lab Results - Last 24 Hours (Table) 02/24/19 02/26/19 02/26/19 Range/Units 08:10 11:41 11:55 WBC 11.3 H (3.8-10.6) k/uL RBC 2.78 L (4.30-5.90) m/uL Hgb 8.6 L D (13.0-17.5) gm/dL Hct 24.9 L (39.0-53.0) % Glucose (74-99) mg/dL POC Glucose (mg/dL) 252 H (75-99) mg/dL Calcium (8.4-10.2) mg/dL Crossmatch See Detail 02/26/19 02/26/19 02/27/19 Range/Units 16:57 20:27 06:35 WBC (3.8-10.6) k/uL RBC (4.30-5.90) m/uL Hgb (13.0-17.5) gm/dL Hct (39.0-53.0) % Glucose (74-99) mg/dL POC Glucose (mg/dL) 287 H 267 H 143 H (75-99) mg/dL Calcium (8.4-10.2) mg/dL Crossmatch 02/27/19 02/27/19 Range/Units 07:03 07:03 WBC (3.8-10.6) k/uL RBC 2.75 L (4.30-5.90) m/uL Hgb 8.2 L (13.0-17.5) gm/dL Hct 24.7 L (39.0-53.0) % Glucose 133 H (74-99) mg/dL POC Glucose (mg/dL) (75-99) mg/dL Calcium 7.8 L (8.4-10.2) mg/dL Crossmatch Assessment and Plan (1) Duodenal ulcer Current Visit: Yes Status: Acute Code(s): K26.9 - DUODENAL ULCER, UNSP ACUTE OR CHRONIC, W/O HEMOR OR PERF SNOMED Code(s): 95262603 (2) Acute blood loss anemia Current Visit: Yes Status: Acute Code(s): D62 - ACUTE POSTHEMORRHAGIC ANEMIA SNOMED Code(s): 303716111 (3) GI bleed Current Visit: Yes Status: Acute Code(s): K92.2 - GASTROINTESTINAL HEMORRHAGE, UNSPECIFIED SNOMED Code(s): 06035090 Plan: 1. Full liquids with Glucerna 3 times a day with meals. Daily CBC. Transfer to medical floor. Protonix 40 mg twice daily. Assessment and plan a care discussed with Dr. Alcantara
[2019-02-27 12:23] LABS: Glucose,Whole Blood 254 mg/dL (75-99)
--- NOTE | 2019-02-27 13:59 | P.PN ---
Subjective Progress Note Date: 02/27/19 78-year-old male one of Dr. Cruz's patient with past medical history of Parkinson disease, diabetes, hypertension, obstructive sleep apnea and hypothyroidism who reported that he had syncopal episode when he went to the bathroom felt very fainted lightheaded and he passed out his found him on the ground had the very large bloody bowel movement the same time with complete blood according to her after he was complaining of mild abdominal discomfort. Patient was in the emergency room 2 days earlier with abdominal pain and no major finding at the time. His hemoglobin still elevated patient is an active gastrointestinal bleed. He had previous history of GI bleed in 2016 was hospitalized and had both scope done by Dr. Le at the time. Patient will be admitted to the ICU keep doing CBC every few hours to his clearance stable hemodynamically and might be scheduled for an EGD tomorrow morning if his stable. 02/22 patient examined bedside continue to endorse nausea and had[place]undi color stool today. Vitals are stable with a temp of 90 7.9R respiratory rate of 17 pulse 65 blood pressure 171/86. Not currently nothing by mouth patient did have breakfast this morning with clear liquid diet. Gastric evaluation pending continue patient to be nothing by mouth. Continue lisinopril and metoprolol for blood pressure control. 2 hydralazine 10 mg every 6 hours when necessary for systolic more than 160 02/23: Patient was examined at the bedside. is at the bedside. Patient continues to complain of nausea and tenderness to the epigastric area. Patient continues to have maroon colored stool. Denies any vomiting initial hemoglobin upon admission was 14.0 hemoglobin continues to drift today's hemoglobin 11.0. Patient continues to have maroon-colored stools throughout the evening. Patient was seen by GI, possible endoscopic evaluation was for both outpatient. Vital signs remained stable. 02/24: Patient c\o chest pain, troponin negative, morphine given. Blood pressure increased patient a longer has chest pain at this time. Prep completed for GI study. Patient continues to have maroon-colored stool. Hemoglobin dropped to 7. 4 in the evening. We'll transfuse 1 unit of packed red blood cells. Patient still complains of epigastric pain. Denies any nausea or vomiting at this time. is at the bedside and discussed plan of care. Awaiting GI workup. 02/25: Patient underwent EGD yesterday that showed a large duodenal bulb ulcer that was injected with epinephrine, no active bleeding at this point in time he would be started on clear liquid diet, he would be kept in ICU for another 1-2 days. Colonoscopy was aborted as the patient had a lot of black old blood in the transverse colon . 02/26: Patient is sitting up in bed he feels better today his hemoglobin is up post transfusion, he denies any chest pain, shortness breath, he denies any ab dominal pain, he continues to have some black tarry stool, his vital signs are stable, and he is maintained on clear liquid diet for another 24 hours. 02/27: Patient is sitting up in a chair in no apparent distress, he had an episode of maroon-colored stool today he denies any abdominal pain, nausea or vomiting, he continues to have an abrasion to the left lower extremity that is covered with petroleum gauze and ABD, we will repeat her CBC make sure stable and then the patient can be transferred to medical surgical floor. Review of systems Constitutional: Denies chills, Denies fever, Denies lethargy, Denies malaise, Denies poor appetite, Denies weakness, Denies weight loss Eyes: denies decreased vision, denies diplopia, denies discharge, denies pain Ears: deny: decreased hearing Ears, nose, mouth and throat: Denies dental pain, Denies headache, Denies nasal discharge, Denies nose pain Cardiovascular: Denies chest pain, Denies decreased exercise tolerance, Denies edema, Denies high blood pressure, Denies irregular heart beat, Denies palpitations, Denies paroxysmal nocturnal dyspnea, Denies rapid heart beat, Denies shortness of breath Respiratory: Denies congestion, Denies cough, Denies cough with sputum, Denies dyspnea, Denies home oxygen, Denies wheezing Gastrointestinal: Positive abdominal pain right lower abdominal with red color stool,, Denies coffee ground emesis, Denies early satiety, Denies excessive gas, Denies heartburn, Denies hematemesis, Denies hematochezia, Denies loss of appetite, positive for nausea, Denies vomiting Genitourinary: Denies dysuria, Denies flank pain, Denies kidney stones, Denies menorrhagia, Denies urgency, Denies urinary frequency Objective - Vital Signs Vital signs: Vital Signs Temp 98.4 F 02/27/19 08:00 Pulse 64 02/27/19 10:00 Resp 16 02/27/19 10:00 BP 127/58 02/27/19 10:00 Pulse Ox 99 02/27/19 10:00 Intake & Output 02/26/19 02/27/19 02/27/19 18:59 06:59 18:59 Intake Total 1060 Output Total 890 1030 535 Balance 170 -1030 -535 Weight 110.7 kg Intake: IV 0 Sodium Chloride 0.9% 1, 0 000 ml @ 75 mls/hr IV . [id number] MORE Rx#:[id number] Oral 750 Blood Product 310 Rc As-1 Unit 310 [id number] Output: Urine 890 1030 535 Other: Voiding Method Indwelling Catheter Indwelling Catheter Indwelling Catheter # Bowel Movements 1 - Exam - Exam General Appearance: Alert, cooperative, no distress, appears stated age. Neck HEENT: Supple, no lymphadenopathy, no thyroid enlargement, no carotid bruits. Lungs: Clear to auscultation without crackles or wheezes no rhonchi, no deformity. Chest Wall: Chest wall normal expansion with deep inspiration no tenderness and no deformity was found on exam, no costochondral pain or discomfort. Heart: Regular rate and rhythm, S1, S2 normal, no murmur, rub or gallop. Back: Symmetric, no curvature, ROM normal, no CVA tenderness. Abdomen: Soft, epigastric tenderness, no rebound or rigidity, no hepatosplenomegaly. Extremities: Extremities normal, atraumatic, no cyanosis or edema. Pulses: 2+ and symmetric. Skin: Skin color, texture, tugor normal, no rashes or lesions. Neurologic: Alert oriented x3 cranial nerves II through XII intact, resting tremor noted no motor deficit, strength equal bilaterally - Labs CBC & Chem 7: 02/27/19 07:03 02/27/19 07:03 Labs: Abnormal Lab Results - Last 24 Hours (Table) 02/24/19 02/26/19 02/26/19 Range/Units 08:10 11:41 11:55 WBC 11.3 H (3.8-10.6) k/uL RBC 2.78 L (4.30-5.90) m/uL Hgb 8.6 L D (13.0-17.5) gm/dL Hct 24.9 L (39.0-53.0) % Glucose (74-99) mg/dL POC Glucose (mg/dL) 252 H (75-99) mg/dL Calcium (8.4-10.2) mg/dL Crossmatch See Detail 02/26/19 02/26/19 02/27/19 Range/Units 16:57 20:27 06:35 WBC (3.8-10.6) k/uL RBC (4.30-5.90) m/uL Hgb (13.0-17.5) gm/dL Hct (39.0-53.0) % Glucose (74-99) mg/dL POC Glucose (mg/dL) 287 H 267 H 143 H (75-99) mg/dL Calcium (8.4-10.2) mg/dL Crossmatch 02/27/19 02/27/19 Range/Units 07:03 07:03 WBC (3.8-10.6) k/uL RBC 2.75 L (4.30-5.90) m/uL Hgb 8.2 L (13.0-17.5) gm/dL Hct 24.7 L (39.0-53.0) % Glucose 133 H (74-99) mg/dL POC Glucose (mg/dL) (75-99) mg/dL Calcium 7.8 L (8.4-10.2) mg/dL Crossmatch Assessment and Plan Assessment: Assessment and Plan Plan: 1. acute gastrointestinal bleed S/P EGD that showed large duodena bulb ulcer status post epinephrine injection, and incomplete colonoscopy due to large amount of blood covering the mucosa. We will continue patient on full liquid diet, continue Protonix 40 mg push every 12 hours, repeat the CBC today and the CBC is stable compared transferred to medical surgical floor today. 2. syncopal episode: Most likely from the severity of the GI bleed as causing the blood pressure to be slightly bit low with low volume, continue fluid resuscitation no need for blood transfusion unless hemoglobin dropped below at least 80 g. Continue current treatment management for now. 3. recent fall, no injury mild bruise on the right leg continue topical care. 4. type 2 diabetes on insulin: Patient has been on to Trisiba 32 unit daily along with Humalog 15 units before meals meals continue Accu-Chek sliding scales coverage. 5. Chest pain. troponin ordered - 0.012, continue to monitor CBC, morphine 2 mg when necessary 6. Hypertension: Continue patient on lisinopril 10 mg a day along with metoprolol XL 25 mg daily. Hydralazine 10 IV every 6 as needed for systolic m ore than 160 7. Parkinson disease: Patient is on carbidopa levodopa resume medication for now. 8. Alzheimer disease: Patient is on donepezil 10 mg daily. 9. chronic depression: Patient is on Effexor or ER total of 225 mg daily. Discussed possible need for psychiatric consult an outpatient setting. 10. hypothyroidism: Continue patient on levothyroxine 100 g daily. 11. DVT prophylaxis: Continue knee-high THEA hose and Venodyne boots for now with early mobilization. 12. GI prophylaxis: Patient will be on pantoprazole IV twice a day. 13. Right leg abrasion. Continue local skin care. 14. If Hemoglobin stable patient can be transferred to medical surgical floor.
[2019-02-27 14:18] LABS: Basophils # (A) 0.1 k/uL (0-0.2); Basophils % (A) 1 %; Eosinophils # (A) 0.3 k/uL (0-0.7); Eosinophils % (A) 3 %; HCT 27.9 % (39.0-53.0); HGB 9.1 gm/dL (13.0-17.5); Lymphocytes % (A) 17 %; MCH 29.7 pg (25.0-35.0); MCHC 32.6 g/dL (31.0-37.0); MCV 91.3 fL (80.0-100.0); Mean Platelet Volume 7.4; Monocytes # (A) 0.7 k/uL (0-1.0); Monocytes % (A) 6 %; Neutrophils # (A) 8.7 k/uL (1.3-7.7); Neutrophils % (A) 73 %; Platelet Count 226 k/uL (150-450); Poikilocytosis Slight; RBC 3.06 m/uL (4.30-5.90); RDW 14.9 % (11.5-15.5); WBC 11.9 k/uL (3.8-10.6)
[2019-02-27 17:30] LABS: Glucose,Whole Blood 249 mg/dL (75-99)
[2019-02-27 20:40] LABS: Glucose,Whole Blood 205 mg/dL (75-99)
[2019-02-27] MEDS: INSULIN DETEMIR (LEVEMIR) 100 UNIT/ML SYR SQ SCH (20:57)
[2019-02-28 05:29] LABS: HCT 25.1 % (39.0-53.0); HGB 8.3 gm/dL (13.0-17.5); MCV 90.7 fL (80.0-100.0); Mean Platelet Volume 7.1; Platelet Count 220 k/uL (150-450); Poikilocytosis Slight; RBC 2.77 m/uL (4.30-5.90); WBC 9.2 k/uL (3.8-10.6)
[2019-02-28 05:40] LABS: African American GFR (CKD) >90 (>60 ml/min/1.73 sqM); Anion Gap 4 mmol/L; Blood Urea Nitrogen 10 mg/dL (9-20); Calcium 7.9 mg/dL (8.4-10.2); Carbon Dioxide 30 mmol/L (22-30); Chloride 101 mmol/L (98-107); Glucose 132 mg/dL (74-99); Potassium 3.7 mmol/L (3.5-5.1); Sodium 135 mmol/L (137-145)
[2019-02-28] MEDS ORDERED: POTASSIUM CHLORIDE ER 20 MEQ TAB.ER PO SCH (06:00)
[2019-02-28] MEDS: LEVOTHYROXINE 100 MCG TAB PO SCH (06:10)
[2019-02-28 07:02] LABS: Glucose,Whole Blood 134 mg/dL (75-99)
[2019-02-28] MEDS: CARBIDOPA-LEVODOPA 25-100 MG 1 EACH TAB PO SCH ×3 (07:08→17:57)
[2019-02-28] MEDS: INSULIN ASPART (NovoLOG) 100 UNIT/ML VIAL SQ SCH ×4 (07:11→21:23)
[2019-02-28] MEDS: PANTOPRAZOLE 40 MG/10 ML VIAL IV SCH ×2 (08:40→21:21)
[2019-02-28] MEDS: MAGNESIUM OXIDE 400 MG TAB PO SCH (08:40)
[2019-02-28] MEDS: FOLIC ACID 1 MG TAB PO SCH (08:41)
[2019-02-28] MEDS: CYANOCOBALAMIN 500 MCG TAB PO SCH ×2 (08:41→21:21)
[2019-02-28] MEDS: LISINOPRIL 10 MG TAB PO SCH (08:41)
[2019-02-28] MEDS: VENLAFAXINE HCL ER 150 MG CAP PO SCH (08:41)
[2019-02-28] MEDS: METOPROLOL SUCCINATE (ER) 25 MG TAB.ER.24H PO SCH (08:41)
[2019-02-28] MEDS: VENLAFAXINE HCL ER 75 MG CAP PO SCH (08:41)
[2019-02-28] MEDS: DONEPEZIL 10 MG TAB PO SCH (08:45)
[2019-02-28 10:08] VITALS: BMI 33.3
--- NOTE | 2019-02-28 10:26 | P.PN ---
Subjective Progress Note Date: 02/28/19 Principal diagnosis: Acute GI bleeding This is a very pleasant 78-year-old gentleman who follows with Dr. Cruz as his primary care physician. He has a history of Parkinson's disease, depression, hypothyroidism, diabetes mellitus, hypertension, previous GI bleed. He had undergone EGD with biopsy in March 2018. There was a small sliding hiatal hernia with no obvious esophagitis or complicated reflux disease. There was gastritis and duodenitis with duodenal bulb ulcer not actively bleeding at that time. Biopsies were negative for malignancy. No pathology. Early this morning he was up in the bathroom and had a large amount of lea stool and a syncopal episode. His heard him fall. He was brought here by EMS for the same. He did sustain minor injuries to his right lower extremity right elbow. He had some neck pain. Multiple x-rays revealed no fractures. Chest x-ray showed no acute pulmonary process. EKG shows normal sinus rhythm. Initial hemoglobin 14.0. White count 11.8. Creatinine 1.09. He is seen in consultation in the intensive care unit. Awake and alert in no acute distress. Hemodynamically stable. Not requiring pressors at this point. He has been initiated on 0.9 normal saline at 75 ML's per hour and Protonix 40 mg IV twice a day. Patient was reevaluated today on 02/22/2019, had minimal amount of burgundy color stool earlier today. However the patient is stable hemodynamically, does not feel lightheaded, patient's hemoglobin is stable. Hemoglobin today is 12.5. Yet to be seen by gastroenterology. And uncertain whether the patient will need to have EGD at this point in the meantime I will go ahead and recommend that we keep him nothing by mouth just in case EGD will be scheduled to be done today. And considering the patient is hemodynamically stable, and no significant the bleeding is noted we can potentially transfer the patient out of the ICU to a monitor bed. Reevaluated today on 02/23/2019, patient remains in the ICU, he was seen by gastroenterology yesterday, and basically recommended conservative measures. However the patient is having multiple episodes of burgundy colored stools over the last 24 hours, and his hemoglobin did drift down to 11.0 from 11.5 yesterday. His initial hemoglobin on admission was 14.0. Clearly the patient is actively bleeding/oozing and there has been a steady decline in his hemoglobin since admission. Not to mention the patient has clinically obvious GI bleeding with burgundy stools almost on a daily basis. Hence I have instructed the nurses to contact gastroenterology again, and consider endoscopy on this patient. Reevaluated today on 02/24/2019, patient continues to have intermittent episodes of burgundy colored stools, his hemoglobin dropped down to 7.4 today, and he is to receive 1 unit of packed RBCs, scheduled to undergo further GI workup including EGD and colonoscopy today. Patient denies any blurred vision, denies any syncope, denies any lightheadedness. Denies any abdominal pain. On 02/25/2019 patient seen in follow-up in the intensive care unit. He is awake and alert, resting comfortably in bed, a little groggy today, but no acute complaints, no difficulty breathing, no chest pain, room air pulse ox is 96%, hemodynamically stable, afebrile, he is status post EGD, with the findings of a hiatal hernia, gastritis and duodenitis, underwent epinephrine injection, and gold probe cautery and clips placement. No episodes of GI bleeding overnight, today's labs have been reviewed, showing white blood cell count of 19.7, hemoglobin of 7.8, platelet count of 172, sodium is 138, potassium is 4.0, chloride is 112, CO2 is 23, B1 is 24, creatinine is 1.06. Lung sounds are clear, no signs are stable. Gaffney catheter is in, patient is nonoliguric, IV 0.9 normal saline at a rate of 75 ML per hour. Patient has received 1 unit of packed red blood cells this admission. Nothing by mouth except for ice chips. On 02/26/2019 patient seen in follow-up in the intensive care unit, he is awake and alert, less drowsy at today's exam, denies any acute distress, no shortness of breath, no chest pain, no abdominal pain, his last stool was yesterday in the morning, small, with mucus and small amount of blood, no further bloody bowel movements, no melena, no hematemesis, no nausea, no vomiting, patient is tolerating clear liquids. Room air pulse ox is 98%, afebrile, hemodynamically stable, 0.9 normal saline at a rate of 75 ML per hour, no other drips or IVs. Today's hemoglobin is 6.7, patient will receive another unit of blood, for a total of 2 units of packed red blood cells this admission. His labs showed white blood cell count of 10.9, hemoglobin of 6.7, platelet count is 179, sodium is 136, potassium 3.7, chloride is 109, CO2 is 22, BUN is 15, creatinine 0.86. Lung sounds are clear, no rhonchi, no wheezing, no further episodes of hypoglycemia. We will increase activity, will encouraged patient to sit up in the chair today. No acute events overnight. he is stable to go out of the intensive care unit today. 2 medical surgical floor. On 02/27/2019 patient seen in follow-up in the intensive care unit, she is calm and comfortable, resting in bed, currently on room air, no running IVs. Patient had a small maroon colored bowel movement last night, no ongoing bleeding. Hemodynamically stable. Afebrile. Received a total of 2 units of packed red blood cells this admission, this morning's hemoglobin is 8.2, with blood cell count is 10.2, lites and renal profile are within normal limits, no acute events overnight, elevating clear liquid diet. No nausea or vomiting. Awaiting a bed on medical surgical floor. It up in the chair and sat up in the chair for 3 hours yesterday, no complaints of chest pain or shortness of breath, lung sounds are clear, no rhonchi, no wheezing On 02/28/2017 patient seen in follow-up in the intensive care unit, he is resting in bed, in no acute distress, patient had a small maroon-colored cloudy stool yesterday on a day, no further GI bleeding through the night, today's labs have been reviewed, today's hemoglobin is 8.3, white blood cell count is 9.2, serum sodium is 135, the rest of the electrolytes and renal profile are within normal limits, lung sounds are clear to auscultation. Patient's has some concerns about patient being able to go home, he has underlying Parkinson's, patient is is concerned about weakness, and inability to care for him at home. We will speak to physical therapy, and attending physician in regards to evaluation for possible rehab placement. No acute events overnight. Objective - Vital Signs Vital signs: Vital Signs Temp 97.6 F 02/28/19 07:00 Pulse 64 02/28/19 07:00 Resp 27 H 02/28/19 07:00 BP 135/83 02/28/19 07:00 Pulse Ox 99 02/28/19 07:00 Intake & Output 02/27/19 02/28/19 02/28/19 18:59 06:59 18:59 Output Total 1075 2100 Balance -1075 -2100 Weight 111.5 kg 111.5 kg Output: Urine 1075 2100 Other: Voiding Method Indwelling Catheter Indwelling Catheter # Voids 1 # Bowel Movements 1 - Exam GENERAL EXAM: Alert, pleasant, 78-year-old white male, comfortable in no apparent distress. HEAD: Normocephalic/atraumatic. EYES: Normal reaction of pupils, equal size. Conjunctiva pink, sclera white. NOSE: Clear with pink turbinates. THROAT: No erythema or exudates. NECK: No masses, no JVD, no thyroid enlargement, no adenopathy. CHEST: No chest wall deformity. Symmetrical expansion. LUNGS: Equal air entry with no crackles, wheeze, rhonchi or dullness. CVS: Regular rate and rhythm, normal S1 and S2, no gallops, no murmurs, no rubs ABDOMEN: Soft, nontender. No hepatosplenomegaly, normal bowel sounds, no guarding or rigidity. EXTREMITIES: No clubbing, no edema, no cyanosis, 2+ pulses and upper and lower extremities. MUSCULOSKELETAL: Muscle strength and tone normal. SPINE: No scoliosis or deformity SKIN: No rashes CENTRAL NERVOUS SYSTEM: Alert and oriented -3. No focal deficits, tone is normal in all 4 extremities. PSYCHIATRIC: Alert and oriented -3. Appropriate affect. Intact judgment and insight. - Labs CBC & Chem 7: 02/28/19 04:51 02/28/19 07:38 Labs: Abnormal Lab Results - Last 24 Hours (Table) 02/27/19 02/27/19 02/27/19 Range/Units 12:21 13:37 17:28 WBC 11.9 H (3.8-10.6) k/uL RBC 3.06 L (4.30-5.90) m/uL Hgb 9.1 L (13.0-17.5) gm/dL Hct 27.9 L (39.0-53.0) % Neutrophils # 8.7 H (1.3-7.7) k/uL Sodium (137-145) mmol/L Glucose (74-99) mg/dL POC Glucose (mg/dL) 254 H 249 H (75-99) mg/dL Calcium (8.4-10.2) mg/dL 02/27/19 02/28/19 02/28/19 Range/Units 20:38 04:51 04:51 WBC (3.8-10.6) k/uL RBC 2.77 L (4.30-5.90) m/uL Hgb 8.3 L (13.0-17.5) gm/dL Hct 25.1 L (39.0-53.0) % Neutrophils # (1.3-7.7) k/uL Sodium 135 L (137-145) mmol/L Glucose 132 H (74-99) mg/dL POC Glucose (mg/dL) 205 H (75-99) mg/dL Calcium 7.9 L (8.4-10.2) mg/dL 02/28/19 Range/Units 07:01 WBC (3.8-10.6) k/uL RBC (4.30-5.90) m/uL Hgb (13.0-17.5) gm/dL Hct (39.0-53.0) % Neutrophils # (1.3-7.7) k/uL Sodium (137-145) mmol/L Glucose (74-99) mg/dL POC Glucose (mg/dL) 134 H (75-99) mg/dL Calcium (8.4-10.2) mg/dL Assessment and Plan Plan: Assessment: 1 acute GI bleeding, exact source in nature is not clear,patient continues to have active bleeding, hence he is scheduled for blood transfusion today, EGD, and colonoscopy today. 2 acute syncopal episode secondary to GI bleeding 3 type 2 diabetes, on insulin 4 recent fall but no injury 5 history of hypertension 6 history of Parkinson's disease and Alzheimer's disease on treatment 7 hypothyroidism 8 episode of hypoglycemia, related to status nothing by mouth, and long-acting insulin has been adjusted. No hypoglycemic events in the last 24 hours, patient is tolerating clear liquid diet Plan: Patient is clinically stable, hemodynamically stable, no episodes of GI bleeding overnight. His diet has been progressed to full liquid diet. Continue working with physical therapy, patient may need rehabilitation placement after discharge, as the has concerns about patient's weakness, and inability to care for him at home. Stable to go out of ICU today to the medical surgical floor. I performed a history & physical examination of the patient and discussed their management with my nurse practitioner, Genie Kulkarni. I reviewed the nurse practitioner's note and agree with the documented findings and plan of care. Lung sounds are positive for clear lung sounds. The findings and the impression was discussed with the patient. I attest to the documentation by the nurse practitioner. Time with Patient: Less than 30
[2019-02-28 11:42] LABS: Glucose,Whole Blood 312 mg/dL (75-99)
--- NOTE | 2019-02-28 13:02 | P.PN ---
Subjective Progress Note Date: 02/28/19 Principal diagnosis: GI bleed duodenal ulcer Denies hematemesis hematochezia or melena. Hemoglobin 8.3. Denies abdominal pain. Afebrile. Tolerating full liquids. Objective - Vital Signs Vital signs: Vital Signs Temp 98 F 02/28/19 08:00 Pulse 69 02/28/19 10:00 Resp 18 02/28/19 10:00 BP 125/64 02/28/19 10:00 Pulse Ox 99 02/28/19 09:00 Intake & Output 02/27/19 02/28/19 02/28/19 18:59 06:59 18:59 Output Total 1075 2100 Balance -1075 -2100 Weight 111.5 kg 111.5 kg Output: Urine 1075 2100 Other: Voiding Method Indwelling Catheter Indwelling Catheter Indwelling Catheter # Voids 1 0 # Bowel Movements 1 0 - Exam General appearance: The patient is alert, oriented, in no acute distress. HET: Head is normocephalic and atraumatic. Pupils are equal and reactive. Oropharynx is clear without lesions. Neck: Supple without lymphadenopathy. Trachea midline. Heart: S1 S2. Regular rate and rhythm. Lungs: No crackles or wheezes are heard. Abdomen: Soft, nontender, nondistended with bowel sounds. No peritoneal signs. No palpable organomegaly or masses. Extremities: Normal skin color and turgor. No cyanosis, rash, ulceration, clubbing, or edema. Radial and pedal pulses are 2/4 bilaterally. Neurological: No focal deficits. Strength and sensation are grossly intact. - Labs CBC & Chem 7: 02/28/19 04:51 02/28/19 07:38 Labs: Abnormal Lab Results - Last 24 Hours (Table) 02/27/19 02/27/19 02/27/19 Range/Units 13:37 17:28 20:38 WBC 11.9 H (3.8-10.6) k/uL RBC 3.06 L (4.30-5.90) m/uL Hgb 9.1 L (13.0-17.5) gm/dL Hct 27.9 L (39.0-53.0) % Neutrophils # 8.7 H (1.3-7.7) k/uL Sodium (137-145) mmol/L Glucose (74-99) mg/dL POC Glucose (mg/dL) 249 H 205 H (75-99) mg/dL Calcium (8.4-10.2) mg/dL 02/28/19 02/28/19 02/28/19 Range/Units 04:51 04:51 07:01 WBC (3.8-10.6) k/uL RBC 2.77 L (4.30-5.90) m/uL Hgb 8.3 L (13.0-17.5) gm/dL Hct 25.1 L (39.0-53.0) % Neutrophils # (1.3-7.7) k/uL Sodium 135 L (137-145) mmol/L Glucose 132 H (74-99) mg/dL POC Glucose (mg/dL) 134 H (75-99) mg/dL Calcium 7.9 L (8.4-10.2) mg/dL 02/28/19 Range/Units 11:40 WBC (3.8-10.6) k/uL RBC (4.30-5.90) m/uL Hgb (13.0-17.5) gm/dL Hct (39.0-53.0) % Neutrophils # (1.3-7.7) k/uL Sodium (137-145) mmol/L Glucose (74-99) mg/dL POC Glucose (mg/dL) 312 H (75-99) mg/dL Calcium (8.4-10.2) mg/dL Assessment and Plan (1) Duodenal ulcer Current Visit: Yes Status: Acute Code(s): K26.9 - DUODENAL ULCER, UNSP ACUTE OR CHRONIC, W/O HEMOR OR PERF SNOMED Code(s): 85894467 (2) Acute blood loss anemia Current Visit: Yes Status: Acute Code(s): D62 - ACUTE POSTHEMORRHAGIC ANEMIA SNOMED Code(s): 385173108 (3) GI bleed Current Visit: Yes Status: Acute Code(s): K92.2 - GASTROINTESTINAL HEMORRHAGE, UNSPECIFIED SNOMED Code(s): 68505179 Plan: 1. Advance to low residue CC. Glucerna 3 times a day with meals. Daily CBC. Transfer to medical floor. Protonix 40 mg twice daily. Assessment and plan a care discussed with Dr. Alcantara
--- NOTE | 2019-02-28 14:26 | P.PN ---
Subjective Progress Note Date: 02/28/19 78-year-old male one of Dr. Cruz's patient with past medical history of Parkinson disease, diabetes, hypertension, obstructive sleep apnea and hypothyroidism who reported that he had syncopal episode when he went to the bathroom felt very fainted lightheaded and he passed out his found him on the ground had the very large bloody bowel movement the same time with complete blood according to her after he was complaining of mild abdominal discomfort. Patient was in the emergency room 2 days earlier with abdominal pain and no major finding at the time. His hemoglobin still elevated patient is an active gastrointestinal bleed. He had previous history of GI bleed in 2016 was hospitalized and had both scope done by Dr. Le at the time. Patient will be admitted to the ICU keep doing CBC every few hours to his clearance stable hemodynamically and might be scheduled for an EGD tomorrow morning if his stable. 02/22 patient examined bedside continue to endorse nausea and hadburgundi color stool today. Vitals are stable with a temp of 90 7.9R respiratory rate of 17 pulse 65 blood pressure 171/86. Not currently nothing by mouth patient did have breakfast this morning with clear liquid diet. Gastric evaluation pending continue patient to be nothing by mouth. Continue lisinopril and metoprolol for blood pressure control. 2 hydralazine 10 mg every 6 hours when necessary for systolic more than 160 02/23: Patient was examined at the bedside. is at the bedside. Patient continues to complain of nausea and tenderness to the epigastric area. Patient continues to have maroon colored stool. Denies any vomiting initial hemoglobin upon admission was 14.0 hemoglobin continues to drift today's hemoglobin 11.0. Patient continues to have maroon-colored stools throughout the evening. Patient was seen by GI, possible endoscopic evaluation was for both outpatient. Vital signs remained stable. 02/24: Patient c\o chest pain, troponin negative, morphine given. Blood pressure increased patient a longer has chest pain at this time. Prep completed for GI study. Patient continues to have maroon-colored stool. Hemoglobin dropped to 7. 4 in the evening. We'll transfuse 1 unit of packed red blood cells. Patient still complains of epigastric pain. Denies any nausea or vomiting at this time. is at the bedside and discussed plan of care. Awaiting GI workup. 02/25: Patient underwent EGD yesterday that showed a large duodenal bulb ulcer that was injected with epinephrine, no active bleeding at this point in time he would be started on clear liquid diet, he would be kept in ICU for another 1-2 days. Colonoscopy was aborted as the patient had a lot of black old blood in the transverse colon . 02/26: Patient is sitting up in bed he feels better today his hemoglobin is up post transfusion, he denies any chest pain, shortness breath, he denies any ab dominal pain, he continues to have some black tarry stool, his vital signs are stable, and he is maintained on clear liquid diet for another 24 hours. 02/27: Patient is sitting up in a chair in no apparent distress, he had an episode of maroon-colored stool today he denies any abdominal pain, nausea or vomiting, he continues to have an abrasion to the left lower extremity that is covered with petroleum gauze and ABD, we will repeat her CBC make sure stable and then the patient can be transferred to medical surgical floor. 02/28: The patient remains in the intensive care unit. He has been waiting for a [facility] bed which we are hoping will be obtained today. Patient has had no blood in his stools. No abdominal pain. His been afebrile. Patient is tolerating full liquid diet. GI has recommended advancing diet to low residue consistent carb along with Glucerna and continue Protonix twice daily. PT and OT are following. Anticipate possible discharge in the next 2448 hrs. Review of systems Constitutional: Denies chills, Denies fever, Denies lethargy, Denies malaise, Denies poor appetite, Denies weakness, Denies weight loss Eyes: denies decreased vision, denies diplopia, denies discharge, denies pain Ears: deny: decreased hearing Ears, nose, mouth and throat: Denies dental pain, Denies headache, Denies nasal discharge, Denies nose pain Cardiovascular: Denies chest pain, Denies decreased exercise tolerance, Denies edema, Denies high blood pressure, Denies irregular heart beat, Denies palpitations, Denies paroxysmal nocturnal dyspnea, Denies rapid heart beat, Denies shortness of breath Respiratory: Denies congestion, Denies cough, Denies cough with sputum, Denies dyspnea, Denies home oxygen, Denies wheezing Gastrointestinal: Denies abdominal pain. Denies coffee ground emesis, Denies early satiety, Denies excessive gas, Denies heartburn, Denies hematemesis, Denies hematochezia, Denies loss of appetite, denies nausea, Denies vomiting Genitourinary: Denies dysuria, Denies flank pain, Denies kidney stones, Denies menorrhagia, Denies urgency, Denies urinary frequency Objective - Vital Signs Vital signs: Vital Signs Temp 98 F 02/28/19 08:00 Pulse 69 02/28/19 10:00 Resp 18 02/28/19 10:00 BP 125/64 02/28/19 10:00 Pulse Ox 99 02/28/19 09:00 Intake & Output 02/27/19 02/28/19 02/28/19 18:59 06:59 18:59 Output Total 1075 2100 Balance -1075 -2100 Weight 111.5 kg 111.5 kg Output: Urine 1075 2100 Other: Voiding Method Indwelling Catheter Indwelling Catheter # Voids 1 # Bowel Movements 1 - Exam General Appearance: Alert, cooperative, no distress, appears stated age. Patient is seen sitting in recliner. He appears to be comfortable. Neck HEENT: Supple, no lymphadenopathy, no thyroid enlargement, no carotid bruits. Lungs: Clear to auscultation without crackles or wheezes no rhonchi, no de formity. Chest Wall: Chest wall normal expansion with deep inspiration no tenderness and no deformity was found on exam, no costochondral pain or discomfort. Heart: Regular rate and rhythm, S1, S2 normal, no murmur, rub or gallop. Back: Symmetric, no curvature, ROM normal, no CVA tenderness. Abdomen: Soft, epigastric tenderness, no rebound or rigidity, no hepatosplenomegaly. Extremities: Extremities normal, atraumatic, no cyanosis or edema. Pulses: 2+ and symmetric. Skin: Skin color, texture, tugor normal, no rashes or lesions. Neurologic: Alert oriented x3 cranial nerves II through XII intact, resting tremor noted no motor deficit, strength equal bilaterally - Labs CBC & Chem 7: 02/28/19 04:51 02/28/19 07:38 Labs: Abnormal Lab Results - Last 24 Hours (Table) 02/27/19 02/27/19 02/27/19 Range/Units 12:21 13:37 17:28 WBC 11.9 H (3.8-10.6) k/uL RBC 3.06 L (4.30-5.90) m/uL Hgb 9.1 L (13.0-17.5) gm/dL Hct 27.9 L (39.0-53.0) % Neutrophils # 8.7 H (1.3-7.7) k/uL Sodium (137-145) mmol/L Glucose (74-99) mg/dL POC Glucose (mg/dL) 254 H 249 H (75-99) mg/dL Calcium (8.4-10.2) mg/dL 02/27/19 02/28/19 02/28/19 Range/Units 20:38 04:51 04:51 WBC (3.8-10.6) k/uL RBC 2.77 L (4.30-5.90) m/uL Hgb 8.3 L (13.0-17.5) gm/dL Hct 25.1 L (39.0-53.0) % Neutrophils # (1.3-7.7) k/uL Sodium 135 L (137-145) mmol/L Glucose 132 H (74-99) mg/dL POC Glucose (mg/dL) 205 H (75-99) mg/dL Calcium 7.9 L (8.4-10.2) mg/dL 02/28/19 Range/Units 07:01 WBC (3.8-10.6) k/uL RBC (4.30-5.90) m/uL Hgb (13.0-17.5) gm/dL Hct (39.0-53.0) % Neutrophils # (1.3-7.7) k/uL Sodium (137-145) mmol/L Glucose (74-99) mg/dL POC Glucose (mg/dL) 134 H (75-99) mg/dL Calcium (8.4-10.2) mg/dL Assessment and Plan Plan: 1. acute gastrointestinal bleed S/P EGD that showed large duodena bulb ulcer status post epinephrine injection, and incomplete colonoscopy due to large amount of blood covering the mucosa. Diet to be advanced to low residue consistent carb, continue Protonix 40 mg push every 12 hours, repeat the CBC in the morning. Transferred to MedSurg floor. 2. syncopal episode: Most likely from the severity of the GI bleed. 3. recent fall, no injury mild bruise on the right leg continue topical care. 4. type 2 diabetes on insulin: Patient has been on to Trisiba 32 unit daily along with Humalog 15 units before meals meals continue Accu-Chek sliding scales coverage. 5. Chest pain. troponin ordered - 0.012, continue to monitor CBC, morphine 2 mg when necessary 6. Hypertension: Continue patient on lisinopril 10 mg a day along with metoprolol XL 25 mg daily. Hydralazine 10 IV every 6 as needed for systolic more than 160 7. Parkinson disease: Patient is on carbidopa levodopa resume medication for now. 8. Alzheimer disease: Patient is on donepezil 10 mg daily. 9. Recurrent depression: Patient is on Effexor or ER total of 225 mg daily. Discussed possible need for psychiatric consult an outpatient setting. 10. Hypothyroidism: Continue patient on levothyroxine 100 g daily. 11. DVT prophylaxis: Continue knee-high THEA hose and Venodyne boots for now with early mobilization. 12. GI prophylaxis: Patient will be on pantoprazole IV twice a day. 13. Right leg abrasion. Continue local skin care. 14. If Hemoglobin stable patient can be transferred to medical surgical floor. Discharge plan: Home Impression and plan of care have been directed as dictated by the signing physician. Magy Lara nurse practitioner acting as scribe for signing physician.
[2019-02-28 17:15] LABS: Glucose,Whole Blood 204 mg/dL (75-99)
[2019-02-28 20:32] LABS: Glucose,Whole Blood 281 mg/dL (75-99)
[2019-02-28] MEDS: INSULIN DETEMIR (LEVEMIR) 100 UNIT/ML SYR SQ SCH (21:23)
[2019-03-01] MEDS: LEVOTHYROXINE 100 MCG TAB PO SCH (06:29)
[2019-03-01] MEDS: CARBIDOPA-LEVODOPA 25-100 MG 1 EACH TAB PO SCH ×3 (06:29→17:12)
[2019-03-01 07:26] LABS: Glucose,Whole Blood 155 mg/dL (75-99)
[2019-03-01] MEDS: LISINOPRIL 10 MG TAB PO SCH (08:35)
[2019-03-01] MEDS: PANTOPRAZOLE 40 MG/10 ML VIAL IV SCH ×2 (08:35→20:54)
[2019-03-01] MEDS: MAGNESIUM OXIDE 400 MG TAB PO SCH (08:35)
[2019-03-01] MEDS: CYANOCOBALAMIN 500 MCG TAB PO SCH ×2 (08:35→20:54)
[2019-03-01] MEDS: DONEPEZIL 10 MG TAB PO SCH (08:35)
[2019-03-01] MEDS: FOLIC ACID 1 MG TAB PO SCH (08:36)
[2019-03-01] MEDS: METOPROLOL SUCCINATE (ER) 25 MG TAB.ER.24H PO SCH (08:36)
[2019-03-01] MEDS: INSULIN ASPART (NovoLOG) 100 UNIT/ML VIAL SQ SCH ×4 (08:38→20:54)
[2019-03-01] MEDS: VENLAFAXINE HCL ER 75 MG CAP PO SCH (08:38)
[2019-03-01] MEDS: VENLAFAXINE HCL ER 150 MG CAP PO SCH (08:38)
[2019-03-01 09:52] LABS: Anisocytosis Slight; HCT 25.8 % (39.0-53.0); HGB 8.9 gm/dL (13.0-17.5); Hypochromasia Slight; MCH 30.7 pg (25.0-35.0); MCHC 34.3 g/dL (31.0-37.0); MCV 89.4 fL (80.0-100.0); Mean Platelet Volume 8.1; Platelet Count 207 k/uL (150-450); Poikilocytosis Slight; RBC 2.89 m/uL (4.30-5.90); RDW 16.1 % (11.5-15.5); WBC 9.2 k/uL (3.8-10.6)
[2019-03-01 10:15] LABS: African American GFR (CKD) >90 (>60 ml/min/1.73 sqM); Anion Gap 7 mmol/L; Blood Urea Nitrogen 14 mg/dL (9-20); Calcium 8.3 mg/dL (8.4-10.2); Carbon Dioxide 30 mmol/L (22-30); Chloride 101 mmol/L (98-107); Glucose 225 mg/dL (74-99); Potassium 4.3 mmol/L (3.5-5.1); Sodium 138 mmol/L (137-145)
[2019-03-01 12:05] LABS: Glucose,Whole Blood 182 mg/dL (75-99)
[2019-03-01] MEDS: FERROUS SULFATE 325 MG TAB PO SCH (13:35)
--- NOTE | 2019-03-01 13:36 | P.PN ---
Subjective Progress Note Date: 03/01/19 Principal diagnosis: GI bleed duodenal ulcer Slightly confused today. Appropriate conversation alert to self place. Denies hematemesis hematochezia or melena. Hemoglobin stable and improved 8.9. Denies abdominal pain. Afebrile. Tolerating full liquids. Objective - Vital Signs Vital signs: Vital Signs Temp 98.3 F 03/01/19 06:37 Pulse 69 03/01/19 06:37 Resp 16 03/01/19 06:37 BP 167/78 03/01/19 06:37 Pulse Ox 99 03/01/19 06:37 Intake & Output 02/28/19 03/01/19 03/01/19 18:59 06:59 18:59 Output Total 850 Balance -850 Weight 111.5 kg Output: Urine 850 Other: Voiding Method Indwelling Catheter Urinal # Voids 0 2 # Bowel Movements 0 - Exam General appearance: The patient is alert, oriented, in no acute distress. HET: Head is normocephalic and atraumatic. Pupils are equal and reactive. Oropharynx is clear without lesions. Neck: Supple without lymphadenopathy. Trachea midline. Heart: S1 S2. Regular rate and rhythm. Lungs: No crackles or wheezes are heard. Abdomen: Soft, nontender, nondistended with bowel sounds. No peritoneal signs. No palpable organomegaly or masses. Extremities: Normal skin color and turgor. No cyanosis, rash, ulceration, clubbing, or edema. Radial and pedal pulses are 2/4 bilaterally. Neurological: No focal deficits. Strength and sensation are grossly intact. - Labs CBC & Chem 7: 03/01/19 08:45 03/01/19 08:45 Labs: Abnormal Lab Results - Last 24 Hours (Table) 02/28/19 02/28/19 03/01/19 Range/Units 16:47 20:31 07:25 RBC (4.30-5.90) m/uL Hgb (13.0-17.5) gm/dL Hct (39.0-53.0) % RDW (11.5-15.5) % Glucose (74-99) mg/dL POC Glucose (mg/dL) 204 H 281 H 155 H (75-99) mg/dL Calcium (8.4-10.2) mg/dL 03/01/19 03/01/19 03/01/19 Range/Units 08:45 08:45 12:01 RBC 2.89 L (4.30-5.90) m/uL Hgb 8.9 L (13.0-17.5) gm/dL Hct 25.8 L (39.0-53.0) % RDW 16.1 H (11.5-15.5) % Glucose 225 H (74-99) mg/dL POC Glucose (mg/dL) 182 H (75-99) mg/dL Calcium 8.3 L (8.4-10.2) mg/dL Assessment and Plan (1) Duodenal ulcer Current Visit: Yes Status: Acute Code(s): K26.9 - DUODENAL ULCER, UNSP ACUTE OR CHRONIC, W/O HEMOR OR PERF SNOMED Code(s): 96548499 (2) Acute blood loss anemia Current Visit: Yes Status: Acute Code(s): D62 - ACUTE POSTHEMORRHAGIC ANEMIA SNOMED Code(s): 125872607 (3) GI bleed Current Visit: Yes Status: Acute Code(s): K92.2 - GASTROINTESTINAL HEMORRHAGE, UNSPECIFIED SNOMED Code(s): 83630129 Plan: 1. Advance to low residue CC. Glucerna 3 times a day with meals. Daily CBC. Protonix 40 mg twice daily. Assessment and plan a care discussed with Dr. Prakash
--- NOTE | 2019-03-01 14:40 | P.PN ---
Subjective Progress Note Date: 03/01/19 78-year-old male one of Dr. Cruz's patient with past medical history of Parkinson disease, diabetes, hypertension, obstructive sleep apnea and hypothyroidism who reported that he had syncopal episode when he went to the bathroom felt very fainted lightheaded and he passed out his found him on the ground had the very large bloody bowel movement the same time with complete blood according to her after he was complaining of mild abdominal discomfort. Patient was in the emergency room 2 days earlier with abdominal pain and no major finding at the time. His hemoglobin still elevated patient is an active gastrointestinal bleed. He had previous history of GI bleed in 2016 was hospitalized and had both scope done by Dr. Le at the time. Patient will be admitted to the ICU keep doing CBC every few hours to his clearance stable hemodynamically and might be scheduled for an EGD tomorrow morning if his stable. 02/22 patient examined bedside continue to endorse nausea and hadburgundi color stool today. Vitals are stable with a temp of 90 7.9R respiratory rate of 17 pulse 65 blood pressure 171/86. Not currently nothing by mouth patient did have breakfast this morning with clear liquid diet. Gastric evaluation pending continue patient to be nothing by mouth. Continue lisinopril and metoprolol for blood pressure control. 2 hydralazine 10 mg every 6 hours when necessary for systolic more than 160 02/23: Patient was examined at the bedside. is at the bedside. Patient continues to complain of nausea and tenderness to the epigastric area. Patient continues to have maroon colored stool. Denies any vomiting initial hemoglobin upon admission was 14.0 hemoglobin continues to drift today's hemoglobin 11.0. Patient continues to have maroon-colored stools throughout the evening. Patient was seen by GI, possible endoscopic evaluation was for both outpatient. Vital signs remained stable. 02/24: Patient c\o chest pain, troponin negative, morphine given. Blood pressure increased patient a longer has chest pain at this time. Prep completed for GI study. Patient continues to have maroon-colored stool. Hemoglobin dropped to 7. 4 in the evening. We'll transfuse 1 unit of packed red blood cells. Patient still complains of epigastric pain. Denies any nausea or vomiting at this time. is at the bedside and discussed plan of care. Awaiting GI workup. 02/25: Patient underwent EGD yesterday that showed a large duodenal bulb ulcer that was injected with epinephrine, no active bleeding at this point in time he would be started on clear liquid diet, he would be kept in ICU for another 1-2 days. Colonoscopy was aborted as the patient had a lot of black old blood in the transverse colon . 02/26: Patient is sitting up in bed he feels better today his hemoglobin is up post transfusion, he denies any chest pain, shortness breath, he denies any ab dominal pain, he continues to have some black tarry stool, his vital signs are stable, and he is maintained on clear liquid diet for another 24 hours. 02/27: Patient is sitting up in a chair in no apparent distress, he had an episode of maroon-colored stool today he denies any abdominal pain, nausea or vomiting, he continues to have an abrasion to the left lower extremity that is covered with petroleum gauze and ABD, we will repeat her CBC make sure stable and then the patient can be transferred to medical surgical floor. 02/28: The patient remains in the intensive care unit. He has been waiting for a [facility] bed which we are hoping will be obtained today. Patient has had no blood in his stools. No abdominal pain. His been afebrile. Patient is tolerating full liquid diet. GI has recommended advancing diet to low residue consistent carb along with Glucerna and continue Protonix twice daily. PT and OT are following. Anticipate possible discharge in the next 2448 hrs. 03/01: Patient states that he feels a little nauseated today. He did have cough with yellow sputum times one and now sputum is clear. He had a very small bowel movement today. Blood sugars are running 155-225 and insulin will be increased. Hemoglobin is at 8.9 and ferrous sulfate will be added as well as scheduled Senokot. Patient has been afebrile, blood pressure 167/78, pulse ox 99% on room air. Heart rate 69. Electrolytes and renal function within normal limits. Patient has generalized weakness and his risk for possible falls. PT and OT are following. Patient is adamant that he does not want to go to subacute rehab. Review of systems Constitutional: Denies chills, Denies fever, Denies lethargy, Denies malaise, Denies poor appetite, reports weakness, Denies weight loss Eyes: denies decreased vision, denies diplopia, denies discharge, denies pain Ears: deny: decreased hearing Ears, nose, mouth and throat: Denies dental pain, Denies headache, Denies nasal discharge, Denies nose pain Cardiovascular: Denies chest pain, Denies decreased exercise tolerance, Denies edema, Denies high blood pressure, Denies irregular heart beat, Denies palpitations, Denies paroxysmal nocturnal dyspnea, Denies rapid heart beat, Denies shortness of breath Respiratory: Denies congestion, Denies cough, Denies cough with sputum, Denies dyspnea, Denies home oxygen, Denies wheezing Gastrointestinal: Denies abdominal pain. Denies coffee ground emesis, Denies early satiety, Denies excessive gas, Denies heartburn, Denies hematemesis, Denies hematochezia, Denies loss of appetite, reports nausea, Denies vomiting Genitourinary: Denies dysuria, Denies flank pain, Denies kidney stones, Denies menorrhagia, Denies urgency, Denies urinary frequency Objective - Vital Signs Vital signs: Vital Signs Temp 98.3 F 03/01/19 06:37 Pulse 69 03/01/19 06:37 Resp 16 03/01/19 06:37 BP 167/78 03/01/19 06:37 Pulse Ox 99 03/01/19 06:37 Intake & Output 02/28/19 03/01/19 03/01/19 18:59 06:59 18:59 Output Total 850 Balance -850 Weight 111.5 kg Output: Urine 850 Other: Voiding Method Indwelling Catheter Urinal # Voids 0 2 # Bowel Movements 0 - Exam General Appearance: Alert, cooperative, no distress, appears stated age. Patient is seen sitting in recliner. He appears to be comfortable. Patient's is at the bedside. Neck HEENT: Supple, no lymphadenopathy, no thyroid enlargement, no carotid bruits. Lungs: Clear to auscultation without crackles or wheezes no rhonchi, no deformity. Chest Wall: Chest wall normal expansion with deep inspiration no tenderness and no deformity was found on exam, no costochondral pain or discomfort. Heart: Regular rate and rhythm, S1, S2 normal, no murmur, rub or gallop. Back: Symmetric, no curvature, ROM normal, no CVA tenderness. Abdomen: Soft, epigastric tenderness, no rebound or rigidity, no he patosplenomegaly. Extremities: Extremities normal, atraumatic, no cyanosis or edema. Pulses: 2+ and symmetric. Skin: Skin color, texture, tugor normal, no rashes or lesions. Neurologic: Alert oriented x3 cranial nerves II through XII intact, resting tremor noted no motor deficit, strength equal bilaterally, generalized weakness noted. - Labs CBC & Chem 7: 03/01/19 08:45 03/01/19 08:45 Labs: Abnormal Lab Results - Last 24 Hours (Table) 02/28/19 02/28/19 02/28/19 Range/Units 11:40 16:47 20:31 RBC (4.30-5.90) m/uL Hgb (13.0-17.5) gm/dL Hct (39.0-53.0) % RDW (11.5-15.5) % Glucose (74-99) mg/dL POC Glucose (mg/dL) 312 H 204 H 281 H (75-99) mg/dL Calcium (8.4-10.2) mg/dL 03/01/19 03/01/19 03/01/19 Range/Units 07:25 08:45 08:45 RBC 2.89 L (4.30-5.90) m/uL Hgb 8.9 L (13.0-17.5) gm/dL Hct 25.8 L (39.0-53.0) % RDW 16.1 H (11.5-15.5) % Glucose 225 H (74-99) mg/dL POC Glucose (mg/dL) 155 H (75-99) mg/dL Calcium 8.3 L (8.4-10.2) mg/dL Assessment and Plan Plan: 1. Acute gastrointestinal bleed S/P EGD that showed large duodena bulb ulcer status post epinephrine injection, and incomplete colonoscopy due to large amount of blood covering the mucosa. Continue low residue consistent carb, continue Protonix 40 mg push every 12 hours, repeat the CBC in the morning. Transferred to [facility] floor. 2. Syncopal episode: Most likely from the severity of the GI bleed. 3. [place] fall, no injury mild bruise on the right leg continue topical care. 4. Type 2 diabetes on insulin uncontrolled secondary to hyperglycemia. Levemir increased to 22 units at bedtime and continue NovoLog scale. 5. Chest pain. troponin ordered - 0.012, continue to monitor CBC, morphine 2 mg when necessary 6. Hypertension: Continue patient on lisinopril 10 mg a day along with metopro lol XL 25 mg daily. Hydralazine 10 IV every 6 as needed for systolic more than 160 7. Parkinson disease: Patient is on carbidopa levodopa resume medication for now. 8. Alzheimer disease: Patient is on donepezil 10 mg daily. 9. Recurrent depression: Patient is on Effexor or ER total of 225 mg daily. Discussed possible need for psychiatric consult an outpatient setting. 10. Hypothyroidism: Continue patient on levothyroxine 100 g daily. 11. DVT prophylaxis: Continue knee-high THEA hose and Venodyne boots for now with early mobilization. 12. GI prophylaxis: Patient will be on pantoprazole IV twice a day. 13. Right leg abrasion. Continue local skin care. CODE STATUS: Full code Discharge plan: Home most likely in the next 24-48 hours. Continue PT and OT Impression and plan of care have been directed as dictated by the signing physician. Magy Lara nurse practitioner acting as scribe for signing physician.
[2019-03-01 16:56] LABS: Glucose,Whole Blood 242 mg/dL (75-99)
[2019-03-01] MEDS: INSULIN DETEMIR (LEVEMIR) 100 UNIT/ML SYR SQ SCH (20:54)
[2019-03-01] MEDS: SENNOSIDES-DOCUSATE SODIUM 1 EACH TAB PO SCH (20:54)
[2019-03-01 20:57] LABS: Glucose,Whole Blood 214 mg/dL (75-99)
[2019-03-02] MEDS: LEVOTHYROXINE 100 MCG TAB PO SCH (06:11)
[2019-03-02 07:05] LABS: Glucose,Whole Blood 123 mg/dL (75-99)
[2019-03-02] MEDS: INSULIN ASPART (NovoLOG) 100 UNIT/ML VIAL SQ SCH ×4 (07:56→20:54)
[2019-03-02] MEDS: CARBIDOPA-LEVODOPA 25-100 MG 1 EACH TAB PO SCH ×3 (07:58→17:36)
[2019-03-02] MEDS: METOPROLOL SUCCINATE (ER) 25 MG TAB.ER.24H PO SCH (07:58)
[2019-03-02] MEDS: FOLIC ACID 1 MG TAB PO SCH (07:58)
[2019-03-02] MEDS: DONEPEZIL 10 MG TAB PO SCH (07:58)
[2019-03-02] MEDS: MAGNESIUM OXIDE 400 MG TAB PO SCH (07:58)
[2019-03-02] MEDS: PANTOPRAZOLE 40 MG/10 ML VIAL IV SCH ×2 (07:59→20:54)
[2019-03-02] MEDS: CYANOCOBALAMIN 500 MCG TAB PO SCH ×2 (07:59→20:54)
[2019-03-02] MEDS: LISINOPRIL 10 MG TAB PO SCH ×2 (08:00→20:54)
[2019-03-02] MEDS: VENLAFAXINE HCL ER 150 MG CAP PO SCH (08:01)
[2019-03-02] MEDS: VENLAFAXINE HCL ER 75 MG CAP PO SCH (08:16)
[2019-03-02 08:52] LABS: HCT 30.3 % (39.0-53.0); HGB 9.7 gm/dL (13.0-17.5); Hypochromasia Slight; MCH 29.5 pg (25.0-35.0); MCHC 31.9 g/dL (31.0-37.0); MCV 92.6 fL (80.0-100.0); Mean Platelet Volume 7.1; Platelet Count 300 k/uL (150-450); Poikilocytosis Slight; RBC 3.27 m/uL (4.30-5.90); RDW 14.9 % (11.5-15.5); WBC 10.9 k/uL (3.8-10.6)
[2019-03-02] MEDS: FERROUS SULFATE 325 MG TAB PO SCH (12:15)
[2019-03-02 12:20] LABS: Glucose,Whole Blood 246 mg/dL (75-99)
[2019-03-02 17:09] LABS: Glucose,Whole Blood 232 mg/dL (75-99)
--- NOTE | 2019-03-02 20:05 | P.PN ---
Subjective Progress Note Date: 03/02/19 78-year-old male one of Dr. Cruz's patient with past medical history of Parkinson disease, diabetes, hypertension, obstructive sleep apnea and hypothyroidism who reported that he had syncopal episode when he went to the bathroom felt very fainted lightheaded and he passed out his found him on the ground had the very large bloody bowel movement the same time with complete blood according to her after he was complaining of mild abdominal discomfort. Patient was in the emergency room 2 days earlier with abdominal pain and no major finding at the time. His hemoglobin still elevated patient is an active gastrointestinal bleed. He had previous history of GI bleed in 2016 was hospitalized and had both scope done by Dr. Le at the time. Patient will be admitted to the ICU keep doing CBC every few hours to his clearance stable hemodynamically and might be scheduled for an EGD tomorrow morning if his stable. 02/22 patient examined bedside continue to endorse nausea and [place]und[place] color stool today. Vitals are stable with a temp of 90 7.9R respiratory rate of 17 pulse 65 blood pressure 171/86. Not currently nothing by mouth patient did have breakfast this morning with clear liquid diet. Gastric evaluation pending continue patient to be nothing by mouth. Continue lisinopril and metoprolol for blood pressure control. 2 hydralazine 10 mg every 6 hours when necessary for systolic more than 160 02/23: Patient was examined at the bedside. is at the bedside. Patient continues to complain of nausea and tenderness to the epigastric area. Patient continues to have maroon colored stool. Denies any vomiting initial hemoglobin upon admission was 14.0 hemoglobin continues to drift today's hemoglobin 11.0. Patient continues to have maroon-colored stools throughout the evening. Patient was seen by GI, possible endoscopic evaluation was for both outpatient. Vital signs remained stable. 02/24: Patient c\o chest pain, troponin negative, morphine given. Blood pressure increased patient a longer has chest pain at this time. Prep completed for GI study. Patient continues to have maroon-colored stool. Hemoglobin dropped to 7. 4 in the evening. We'll transfuse 1 unit of packed red blood cells. Patient still complains of epigastric pain. Denies any nausea or vomiting at this time. is at the bedside and discussed plan of care. Awaiting GI workup. 02/25: Patient underwent EGD yesterday that showed a large duodenal bulb ulcer that was injected with epinephrine, no active bleeding at this point in time he would be started on clear liquid diet, he would be kept in ICU for another 1-2 days. Colonoscopy was aborted as the patient had a lot of black old blood in the transverse colon . 02/26: Patient is sitting up in bed he feels better today his hemoglobin is up post transfusion, he denies any chest pain, shortness breath, he denies any a bdominal pain, he continues to have some black tarry stool, his vital signs are stable, and he is maintained on clear liquid diet for another 24 hours. 02/27: Patient is sitting up in a chair in no apparent distress, he had an episode of maroon-colored stool today he denies any abdominal pain, nausea or vomiting, he continues to have an abrasion to the left lower extremity that is covered with petroleum gauze and ABD, we will repeat her CBC make sure stable and then the patient can be transferred to medical surgical floor. 02/28: The patient remains in the intensive care unit. He has been waiting for a [facility] bed which we are hoping will be obtained today. Patient has had no blood in his stools. No abdominal pain. His been afebrile. Patient is tolerating full liquid diet. GI has recommended advancing diet to low residue consistent carb along with Glucerna and continue Protonix twice daily. PT and OT are following. Anticipate possible discharge in the next 2448 hrs. 03/01: Patient states that he feels a little nauseated today. He did have cough with yellow sputum times one and now sputum is clear. He had a very small bowel movement today. Blood sugars are running 155-225 and insulin will be increased. Hemoglobin is at 8.9 and ferrous sulfate will be added as well as scheduled Senokot. Patient has been afebrile, blood pressure 167/78, pulse ox 99% on room air. Heart rate 69. Electrolytes and renal function within normal limits. Patient has generalized weakness and his risk for possible falls. PT and OT are following. Patient is adamant that he does not want to go to subacute rehab. 03/02: Patient is complaining of dark stools similar to yesterday, 3 times without any diarrhea today, hemoglobin remains to be stable, hemoglobin has improved, 9.7 today from 8.9 today, patient denies any abdominal pain, has been alert and conversant and tolerating oral diet regular, did not want to go for rehab as previous, when dissipating discharge in the morning, with home therapies, blood sugars between 123-246 blood pressures 140-156 systolic O2 stable on room air. Plan for discharge in the morning if hemoglobin remains to be stable, home discharge with therapy at TSH panel to maximize thyroid function tests, albumin remains to be low, on protein supplementation patient remains hypertensive, we'll going to increase lisinopril 10 mg twice a day Review of systems Constitutional: Denies chills, Denies fever, Denies lethargy, Denies malaise, Denies poor appetite, reports weakness, Denies weight loss Eyes: denies decreased vision, denies diplopia, denies discharge, denies pain Ears: deny: decreased hearing Ears, nose, mouth and throat: Denies dental pain, Denies headache, Denies nasal discharge, Denies nose pain Cardiovascular: Denies chest pain, Denies decreased exercise tolerance, Denies edema, Denies high blood pressure, Denies irregular heart beat, Denies palpitations, Denies paroxysmal nocturnal dyspnea, Denies rapid heart beat, Denies shortness of breath Respiratory: Denies congestion, Denies cough, Denies cough with sputum, Denies dyspnea, Denies home oxygen, Denies wheezing Gastrointestinal: Denies abdominal pain. Denies coffee ground emesis, Denies early satiety, Denies excessive gas, Denies heartburn, Denies hematemesis, Denies hematochezia, Denies loss of appetite, reports nausea, Denies vomiting Genitourinary: Denies dysuria, Denies flank pain, Denies kidney stones, Denies menorrhagia, Denies urgency, Denies urinary frequency Objective - Vital Signs Vital signs: Vital Signs Temp 98.3 F 03/02/19 13:00 Pulse 73 03/02/19 13:00 Resp 16 03/02/19 13:00 BP 151/77 03/02/19 13:00 Pulse Ox 98 03/02/19 13:00 Intake & Output 03/02/19 03/02/19 03/03/19 06:59 18:59 06:59 Output Total 350 3 Balance -350 -3 Weight 102.9 kg Output: Urine 350 Stool 3 Other: Voiding Method Toilet Toilet Urinal Urinal # Voids 2 2 # Bowel Movements 1 - Constitutional General appearance: Present: cooperative, no acute distress, obese - EENT Eyes: Present: anicteric sclerae, EOMI, PERRLA, normal appearance ENT: Present: NA/AT, normal oropharynx - Neck Neck: Present: normal ROM - Respiratory Respiratory: bilateral: CTA, negative: diminished, dullness, rales - Cardiovascular Rhythm: regular Heart sounds: normal: S1, S2 Abnormal Heart Sounds: Absent: systolic murmur, diastolic murmur, rub, S3 Gallop, S4 Gallop, click, other - Gastrointestinal General gastrointestinal: Present: normal bowel sounds, soft - Integumentary Integumentary: Present: normal - Neurologic Neurologic: Present: CNII-XII intact - Musculoskeletal Musculoskeletal: Present: generalized weakness, strength equal bilaterally - Psychiatric Psychiatric: Present: A&O x's 3, appropriate affect, intact judgment & insight - Labs CBC & Chem 7: 03/02/19 08:30 03/01/19 08:45 Labs: Abnormal Lab Results - Last 24 Hours (Table) 03/01/19 03/02/19 03/02/19 Range/Units 20:48 07:03 08:30 WBC 10.9 H (3.8-10.6) k/uL RBC 3.27 L (4.30-5.90) m/uL Hgb 9.7 L (13.0-17.5) gm/dL Hct 30.3 L (39.0-53.0) % POC Glucose (mg/dL) 214 H 123 H (75-99) mg/dL 03/02/19 03/02/19 Range/Units 12:19 17:08 WBC (3.8-10.6) k/uL RBC (4.30-5.90) m/uL Hgb (13.0-17.5) gm/dL Hct (39.0-53.0) % POC Glucose (mg/dL) 246 H 232 H (75-99) mg/dL Assessment and Plan Plan: 1. Acute gastrointestinal bleed S/P EGD that showed large duodena bulb ulcer status post epinephrine injection, and incomplete colonoscopy due to large amount of blood covering the mucosa. Continue low residue consistent carb, c ontinue Protonix 40 mg push every 12 hours, repeat the CBC in the morning. Transferred to [facility] floor. 2. Syncopal episode: Most likely from the severity of the GI bleed. 3. Tecent fall, no injury mild bruise on the right leg continue topical care. 4. Type 2 diabetes on insulin uncontrolled secondary to hyperglycemia. Levemir increased to 22 units at bedtime and continue NovoLog scale. 5. Chest pain. troponin ordered - 0.012, continue to monitor CBC, morphine 2 mg when necessary 6. Hypertension: Continue patient on lisinopril 10 mg a day increased to 10 mg twice a day secondary to hypertension along with metoprolol XL 25 mg daily. Hydralazine 10 IV every 6 as needed for systolic more than 160 7. Parkinson disease: Patient is on carbidopa levodopa resume medication for now at baseline dose of 10 3 times a day possible titrate outpatient. 8. Alzheimer disease: Patient is on donepezil 10 mg daily. 9. Recurrent depression: Patient is on Effexor or ER total of 225 mg daily. Discussed possible need for psychiatric consult an outpatient setting. 10. Hypothyroidism: Continue patient on levothyroxine 100 g daily. Check TSH maximize treatment of levothyroxine 11. DVT prophylaxis: Continue knee-high THEA hose and Venodyne boots for now with early mobilization. 12. GI prophylaxis: Patient will be on pantoprazole IV twice a day. 13. Right leg abrasion. Continue local skin care. CODE STATUS: Full code Discharge plan: Home most likely in am. Continue PT and OT home therapies refused skilled ECF therapy or inpatient therapy
[2019-03-02 20:30] LABS: Glucose,Whole Blood 242 mg/dL (75-99)
[2019-03-02] MEDS: INSULIN DETEMIR (LEVEMIR) 100 UNIT/ML SYR SQ SCH (20:53)
[2019-03-02] MEDS: SENNOSIDES-DOCUSATE SODIUM 1 EACH TAB PO SCH (20:54)
[2019-03-03] MEDS: LEVOTHYROXINE 100 MCG TAB PO SCH (05:43)
[2019-03-03 07:14] LABS: Glucose,Whole Blood 70 mg/dL (75-99)
[2019-03-03] MEDS: INSULIN ASPART (NovoLOG) 100 UNIT/ML VIAL SQ SCH ×2 (07:35→12:15)
[2019-03-03] MEDS: METOPROLOL SUCCINATE (ER) 25 MG TAB.ER.24H PO SCH (07:58)
[2019-03-03] MEDS: CYANOCOBALAMIN 500 MCG TAB PO SCH (07:59)
[2019-03-03] MEDS: CARBIDOPA-LEVODOPA 25-100 MG 1 EACH TAB PO SCH ×2 (07:59→11:25)
[2019-03-03] MEDS: DONEPEZIL 10 MG TAB PO SCH (07:59)
[2019-03-03] MEDS: LISINOPRIL 10 MG TAB PO SCH (07:59)
[2019-03-03] MEDS: FOLIC ACID 1 MG TAB PO SCH (07:59)
[2019-03-03] MEDS: MAGNESIUM OXIDE 400 MG TAB PO SCH (07:59)
[2019-03-03] MEDS: VENLAFAXINE HCL ER 150 MG CAP PO SCH (08:03)
[2019-03-03] MEDS: VENLAFAXINE HCL ER 75 MG CAP PO SCH (08:03)
[2019-03-03] MEDS: PANTOPRAZOLE 40 MG/10 ML VIAL IV SCH (08:04)
[2019-03-03 09:33] LABS: HCT 29.8 % (39.0-53.0); HGB 9.5 gm/dL (13.0-17.5); Hypochromasia Slight; MCH 29.5 pg (25.0-35.0); MCV 91.9 fL (80.0-100.0); Mean Platelet Volume 7.4; Platelet Count 281 k/uL (150-450); Poikilocytosis Slight; RBC 3.24 m/uL (4.30-5.90); RDW 14.7 % (11.5-15.5); WBC 9.9 k/uL (3.8-10.6)
[2019-03-03] MEDS: FERROUS SULFATE 325 MG TAB PO SCH (11:25)
[2019-03-03 11:48] LABS: Glucose,Whole Blood 246 mg/dL (75-99)
[2019-03-03 14:30] VITALS: BP 132/76; PULSE 71; RESP 16; TEMP 98.3
== END 2019-03-03 14:14 | disposition home health service (06) | DRG 327 ==
LOC: EC 08:20 → 3SCARD 11:31 → 2SICU 12:23 → 4MS4W 02-28 16:56
PROVIDERS: ADMIT Internal Medicine Geriatric Medicine; ATTEND Internal Medicine Geriatric Medicine
PROC: 30233N1 Transfusion of Nonautologous Red Blood Cells into Peripheral Vein, Percutaneous Approach (ICD-10-PCS; principal; 2019-02-24 09:30)
PROC: 0D998ZZ Drainage of Duodenum, Via Natural or Artificial Opening Endoscopic (ICD-10-PCS; 2019-02-24 09:30)
PROC: 0W3P8ZZ Control Bleeding in Gastrointestinal Tract, Via Natural or Artificial Opening Endoscopic (ICD-10-PCS; 2019-02-24 09:30)
PROC: 0DJD8ZZ Inspection of Lower Intestinal Tract, Via Natural or Artificial Opening Endoscopic (ICD-10-PCS; 2019-02-24 09:30)
DX: K26.4 Chronic or unspecified duodenal ulcer with hemorrhage (principal); D62 Acute posthemorrhagic anemia; E03.9 Hypothyroidism, unspecified; E11.649 Type 2 diabetes mellitus with hypoglycemia without coma; E86.0 Dehydration; F02.80 Dementia in other diseases classified elsewhere, unspecified severity, without behavioral disturbance, psychotic disturbance, mood disturbance, and anxiety; F32.9 Major depressive disorder, single episode, unspecified; F41.9 Anxiety disorder, unspecified; G20 Parkinson's disease; G30.9 Alzheimer's disease, unspecified; G47.33 Obstructive sleep apnea (adult) (pediatric); I10 Essential (primary) hypertension; K21.9 Gastro-esophageal reflux disease without esophagitis; K29.70 Gastritis, unspecified, without bleeding; K44.9 Diaphragmatic hernia without obstruction or gangrene; K57.90 Diverticulosis of intestine, part unspecified, without perforation or abscess without bleeding; K59.00 Constipation, unspecified; Z53.9 Procedure and treatment not carried out, unspecified reason; Z79.4 Long term (current) use of insulin; Z79.82 Long term (current) use of aspirin; Z79.890 Hormone replacement therapy; Z79.899 Other long term (current) drug therapy; Z83.3 Family history of diabetes mellitus; Z87.11 Personal history of peptic ulcer disease; S80.11XA Contusion of right lower leg, initial encounter; R07.9 Chest pain, unspecified
CPT/HCPCS: 36415; 43243; 43255; 45378; 70450; 71045; 72125; 72170; 80048; 80053; 81001; 82272; 82550; 83036; 83735; 84132; 84443; 84484; 85025; 85027; 85610; 85730; 86850; 86860; 86870; 86880; 86885; 86900; 86901; 86920; 86970; 86971; 86978; 93005; 96361; 96374; 99291

== ENCOUNTER → 2019-04-19 | Outpatient (CLI) | payer MEDICARE, OTHER ==
[2019-04-19 12:22] LABS: Basophils # (A) 0.1 k/uL (0-0.2); Basophils % (A) 1 %; Eosinophils # (A) 0.4 k/uL (0-0.7); Eosinophils % (A) 4 %; Lymphocytes # (A) 2.4 k/uL (1.0-4.8); Lymphocytes % (A) 21 %; MCH 30.4 pg (25.0-35.0); MCHC 33.3 g/dL (31.0-37.0); MCV 91.4 fL (80.0-100.0); Mean Platelet Volume 8.6; Monocytes # (A) 0.7 k/uL (0-1.0); Monocytes % (A) 6 %; Neutrophils # (A) 7.5 k/uL (1.3-7.7); Neutrophils % (A) 66 %; Platelet Count 222 k/uL (150-450); RBC 4.71 m/uL (4.30-5.90); RDW 14.4 % (11.5-15.5); WBC 11.3 k/uL (3.8-10.6)
[2019-04-19 12:29] LABS: HGB 14.3 gm/dL (13.0-17.5)
== END | disposition home or self-care (01) ==
LOC: LABWHC1 04-18 11:08 → EDSTATUS 04-18 11:12 → LABWHC1 11:08
PROVIDERS: ATTEND Internal Medicine
DX: K26.9 Duodenal ulcer, unspecified as acute or chronic, without hemorrhage or perforation (principal)
CPT/HCPCS: 36415; 85025

== ENCOUNTER 2019-05-09 11:42 | Emergency (ER) | payer MEDICARE, OTHER ==
[2019-05-09 12:13] VITALS: TEMP 97.3
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
[2019-05-09] MEDS ORDERED: LORazepam 1 MG TAB PO STA (14:00)
[2019-05-09 14:28] VITALS: BP 160/91; PULSE 67; RESP 16
== END 2019-05-09 14:28 | disposition home or self-care (01) ==
LOC: EC 11:42
DX: F03.90 Unspecified dementia, unspecified severity, without behavioral disturbance, psychotic disturbance, mood disturbance, and anxiety (principal); R45.4 Irritability and anger; E11.9 Type 2 diabetes mellitus without complications; I10 Essential (primary) hypertension; G20 Parkinson's disease; E07.9 Disorder of thyroid, unspecified; F41.9 Anxiety disorder, unspecified; F32.9 Major depressive disorder, single episode, unspecified; G47.30 Sleep apnea, unspecified; Z99.89 Dependence on other enabling machines and devices; Z79.82 Long term (current) use of aspirin; Z79.890 Hormone replacement therapy; Z79.4 Long term (current) use of insulin; Z79.899 Other long term (current) drug therapy
CPT/HCPCS: 99283